=== PATIENT | female | born 1980 | race Hispanic/Latino ===

== ENCOUNTER 2017-02-20 10:03 | Emergency (ER) | payer MEDICAID ==
[2017-02-21 10:34] LABS: URINE APPEARANCE CLEAR (CLEAR); URINE BILIRUBIN NEGATIVE (NEGATIVE); URINE COLOR STRAW (YELLOW); URINE GLUCOSE (UA) NEGATIVE (NEGATIVE); URINE KETONE NEGATIVE (NEGATIVE)
[2017-02-21 10:35] LABS: PH,URINE 6.5 (4.7-8.0); URINE BLOOD NEGATIVE (NEGATIVE); URINE LEUKOCYTE ESTERASE NEGATIVE Leu/uL (NEGATIVE); URINE PROTEIN NEGATIVE mg/dL (<30 mg/dL); URINE UROBILINOGEN 0.2 E.U./dL (<1 E.U./dL)
[2017-02-21 13:03] LABS: HEMATOCRIT 36.3 % (36.0-48.0); MEAN CELL VOLUME 89.4 fL (80.0-105.0); MEAN CORPUSCULAR HEMOGLOBIN 30.5 pg (25.0-35.0); MEAN CORPUSCULAR HGB CONC 34.2 g/dl (31.0-37.0); MEAN PLATELET VOLUME 10.7 fl (7.0-11.0); RED CELL DISTRIBUTION WIDTH 13.2 % (11.5-14.5); WHITE BLOOD COUNT 7.6 10^3/ul (4.5-11.0)
--- NOTE | 2017-02-21 13:10 | RAD ---
HISTORY: COMPARISON: No prior. FINDINGS: LUNGS: No active pulmonary disease. PLEURA: No significant pleural effusion identified, no pneumothorax apparent. CARDIOVASCULAR: Normal. OSSEOUS STRUCTURES: No significant abnormalities. VISUALIZED UPPER ABDOMEN: Normal. OTHER FINDINGS: None. IMPRESSION: No active disease.
[2017-02-21 14:33] LABS: BLOOD UREA NITROGEN 6 mg/dL (7-21); CALCIUM 9.5 mg/dL (8.4-10.5); CARBON DIOXIDE 26 mmol/L (21-33); CHLORIDE 105 mmol/L (98-107); GFR AFRICAN-AMERICAN > 60; GLUCOSE,RANDOM 94 mg/dL (70-110); POTASSIUM 4.4 mmol/L (3.6-5.0); SODIUM 140 mmol/L (132-148)
--- NOTE | 2017-02-21 23:03 | CARD ---
APPROVED REPORT EKG Measurement Heart [id number] <Conclusion> Normal sinus rhythm Normal ECG
== END 2017-02-21 08:41 | disposition home or self-care (01) ==
LOC: ED 10:03 → EDUNIT# 10:03 → ED 02-21 08:41
DX: F29 Unspecified psychosis not due to a substance or known physiological condition (principal); M54.9 Dorsalgia, unspecified; G89.29 Other chronic pain

== ENCOUNTER 2017-03-10 08:43 | Emergency (ER) | payer MEDICAID ==
[2017-03-10 09:32] VITALS: TEMP 98.8; O2SAT 99; BMI 25.8
[2017-03-10] MEDS ORDERED: Oxycodone/Acetaminophen 5/325 mg Tab PO STA (09:48)
--- NOTE | 2017-03-10 09:48 | ED PDOC ---
Arrival/HPI - General Historian: Patient - General Chief Complaint: Trauma Time Seen by Provider: 03/10/17 09:41 - History of Present Illness Narrative History of Present Illness (Text): 03/10/17 09:42 36 y/o female, nkda, pmh including chronic pain which she is on the oxycodone 30mg, c/o rt. knee and ankle pain x 3-4 days after twisting it by accident. Aching pain, painful to walk and bear weight, no calf pain, no numbness or tingling, no headache or night sweat, no dizziness, no other medical or psychological complaints. (Isaak Lakhani) Past Medical History - Provider Review Nursing Documentation Reviewed: Yes - Tetanus Immunization Tetanus Immunization: Unknown - Cardiac Hx Cardiac Disorders: No - Pulmonary Hx Respiratory Disorders: No - Neurological Hx Neurological Disorder: No - HEENT Hx HEENT Disorder: No - Renal Hx Renal Disorder: No - Endocrine/Metabolic Hx Endocrine Disorders: No - Hematological/Oncological Hx Blood Disorders: No - Integumentary Hx Dermatological Disorder: No - Musculoskeletal/Rheumatological Hx Musculoskeletal Disorders: No Other/Comment: Fibromyalgia x 10 years - Gastrointestinal Hx Gastrointestinal Disorders: No - Genitourinary/Gynecological Hx Genitourinary Disorders: No - Psychiatric Hx Psychophysiologic Disorder: Yes Hx Anxiety: Yes Hx Depression: Yes Hx Substance Use: No - Surgical History Hx Section: Yes (07/13/2012) - Anesthesia Hx Anesthesia: Yes Hx Anesthesia Reactions: No Family/Social History - Physician Review Nursing Documentation Reviewed: Yes Family/Social History: Unknown Family HX Smoking Status: Light Smoker < 10 Cigarettes Daily Hx Alcohol Use: No Hx Substance Use: No Allergies/Home Meds Allergies/Adverse Reactions: Allergies No Known Allergies Allergy (Unverified 02/26/17 13:18) Home Medications: Home Meds Medication Instructions Recorded Confirmed Carisoprodol [Soma] 700 mg PO PRN PRN 03/10/17 03/10/17 oxyCODONE [oxyCODONE Immediate 60 mg PO PRN PRN 03/10/17 03/10/17 Release Tab] Review of Systems - Review of Systems Constitutional: absent: Fatigue, Fevers Eyes: absent: Vision Changes ENT: absent: Hearing Changes Respiratory: absent: SOB, Cough Cardiovascular: absent: Chest Pain Musculoskeletal: Arthralgias, Joint Swelling. absent: Back Pain, Neck Pain, Myalgias Neurological: absent: Headache, Dizziness Psychiatric: absent: Anxiety, Depression, Suicidal Ideation Physical Exam Vital Signs Reviewed: Yes Temperature: Afebrile Blood Pressure: Normal Pulse: Regular Respiratory Rate: Normal Appearance: Positive for: Well-Appearing, Non-Toxic Pain Distress: Severe Mental Status: Positive for: Alert and Oriented X 3 - Systems Exam Head: Present: Atraumatic, Normocephalic Pupils: Present: PERRL Extroacular Muscles: Present: EOMI Conjunctiva: Present: Normal Mouth: Present: Moist Mucous Membranes Neck: Present: Normal Range of Motion Respiratory/Chest: Present: Clear to Auscultation, Good Air Exchange. No: Respiratory Distress, Accessory Muscle Use Cardiovascular: Present: Regular Rate and Rhythm, Normal S1, S2. No: Murmurs Abdomen: Present: Normal Bowel Sounds. No: Tenderness, Distention, Peritoneal Signs Back: Present: Normal Inspection Upper Extremity: Present: Normal Inspection. No: Cyanosis, Edema Lower Extremity: Present: Normal Inspection, Other (Rt. lower extremity: +ttp and swelling with ecchmosis noted on the lateral mallelous, +ttp on the medial aspect of the knee with mild swelling, negative selina and brown signs, no erythematous, FROM without limitation, sensenation intact, motor 5/5, +DPPT pulses, capillary refill< 2 seconds, neurovascular intact. ). No: Edema Neurological: Present: GCS=15, Speech Normal, Motor Func Grossly Intact, Memory Normal Skin: Present: Warm, Dry, Normal Color. No: Rashes Psychiatric: Present: Alert, Oriented x 3, Normal Insight, Normal Concentration Medical Decision Making - RAD Interpretation [place]: Radiologist ED Course and Treatment: 03/10/17 09:52 -xrays of the rt. knee and ankle show no acute fracture or dislocation. -Toradol/percocet -posterior splint applied with neurovascular intact. -Crutches trained -Discharge home with posterior splint, crutches, mobic, ice compression, non- weight bearing, outpatient orthopedic and transfer and pumphouse operator chief follow with your own pmd within 2 days, return to the ER for any new or worsening signs or symptoms. 03/10/17 11:34 -Pain has decreased but patient request to have the pain completely gone, request morphine, morphine 2mg IM ordered. Pt. is not driving home. (Isaak Lakhani ) I was available for consultation during PA evaluation. The chart was reviewed by me, and I agree with disposition. The documented history was done by the physician heavy equipment sales manager. The documented physical exam was done by the physician heavy equipment sales manager. The documented procedures were done by the physician heavy equipment sales manager. ( Parrish Valdez) - RAD Interpretation Radiology Orders: 03/10/17 09:48 ANKLE RIGHT 3 VIEWS ROUTINE [RAD] Stat KNEE W PATELLA RIGHT 3 VIEW [RAD] Stat normal right ankle and knee radiographs. (Isaak Lakhani) - Medication Orders Current Medication Orders: Discontinued Medications Ketorolac Tromethamine (Toradol) 60 mg IM STAT STA Stop: 03/10/17 09:49 Last Admin: 03/10/17 10:32 Dose: 60 mg Morphine Sulfate (Morphine) 2 mg IM STAT STA Stop: 03/10/17 11:34 Last Admin: 03/10/17 11:47 Dose: 2 mg Oxycodone/Acetaminophen (Percocet 5/325 Mg Tab) 1 tab PO STAT STA Stop: 03/10/17 09:49 Last Admin: 03/10/17 10:33 Dose: 1 tab - PA / UPPER LEATHER SORTER / Resident Statement / has reviewed & agrees with the documentation as recorded. Disposition/Present on Arrival - Present on Arrival Any Indicators Present on Arrival: No History of DVT/PE: No History of Uncontrolled Diabetes: No Urinary Catheter: No History of Decub. Ulcer: No History Surgical Site Infection Following: None - Disposition Have Diagnosis and Disposition been Completed?: Yes Disposition Time: 09:53 Patient Plan: Discharge - Disposition Diagnosis: Ankle pain, Knee pain Disposition: HOME/ ROUTINE Condition: IMPROVED Additional Instructions: Discharge home with posterior splint, crutches, mobic, ice compression, non- weight bearing, outpatient orthopedic and transfer and pumphouse operator chief follow with your own pmd within 2 days, return to the ER for any new or worsening signs or symptoms. Prescriptions: Meloxicam [Mobic] 15 mg PO DAILY PRN #14 tab PRN Reason: Other Referrals: Neri Burk MD [Primary Care Provider] - Follow up with primary Eleno Santana DPM [Staff Provider] - Follow up with primary German Holcomb MD [Staff Provider] - Follow up with primary Forms: WORK NOTE
--- NOTE | 2017-03-10 11:26 | RAD ---
PROCEDURE: Right Knee Radiographs. HISTORY: rt. knee injury x 3-4 days COMPARISON: None. FINDINGS: BONES: Normal. No fracture. JOINTS: Normal. No osteoarthritis. JOINT EFFUSION: None. OTHER FINDINGS: None. IMPRESSION: Normal radiographs of the right knee.
--- NOTE | 2017-03-10 11:27 | RAD ---
PROCEDURE: Right Ankle Radiographs. HISTORY: rt. knee injury x 3-4 days COMPARISON: None FINDINGS: BONES: Normal. No fracture. JOINTS: Normal. No osteoarthritis. Ankle mortise maintained. Talar dome intact SOFT TISSUES: Normal. OTHER FINDINGS: None. IMPRESSION: Normal right ankle radiographs.
[2017-03-10] MEDS ORDERED: Morphine 2 mg/ml ISec IM STA (11:33)
[2017-03-10 15:20] VITALS: BP 126/85; PULSE 92; RESP 20
== END 2017-03-10 12:00 | disposition home or self-care (01) ==
LOC: EDUNIT# 08:43 → ED 08:43
DX: M25.561 Pain in right knee (principal); M25.571 Pain in right ankle and joints of right foot
CPT/HCPCS: 29515; 73562; 73610; 96372; 99285; J1885; J2270

== ENCOUNTER 2017-03-11 13:25 | Inpatient (IN) | payer MEDICAID ==
[2017-03-11 13:27] VITALS: BMI 25.8
--- NOTE | 2017-03-11 13:59 | ED PDOC ---
Arrival/HPI - General Historian: Patient - General Chief Complaint: Psychiatric Evaluation Time Seen by Provider: 03/11/17 13:42 - History of Present Illness Narrative History of Present Illness (Text): 03/11/17 13:56 36yo female present with complaint of depression and anxiety. she reports suicidal ideation. States she was recently discharged from [facility] and felt she was not ready for discharge. She is not on any antidepressant or anxiolytics, per patient. she denies HI, hallucination, . Reports right leg pain and back pain. States she sees a pain management and have not taken her analgesics for three days. Thinks she might be going through a withdrawal. ([facility]) Past Medical History - Provider Review Nursing Documentation Reviewed: Yes - Tetanus Immunization Tetanus Immunization: Unknown - Cardiac Hx Cardiac Disorders: No - Pulmonary Hx Respiratory Disorders: No - Neurological Hx Neurological Disorder: No - HEENT Hx HEENT Disorder: No - Renal Hx Renal Disorder: No - Endocrine/Metabolic Hx Endocrine Disorders: No - Hematological/Oncological Hx Blood Disorders: No - Integumentary Hx Dermatological Disorder: No - Musculoskeletal/Rheumatological Hx Musculoskeletal Disorders: No Other/Comment: Fibromyalgia x 10 years - Gastrointestinal Hx Gastrointestinal Disorders: No - Genitourinary/Gynecological Hx Genitourinary Disorders: No - Psychiatric Hx Psychophysiologic Disorder: Yes Hx Anxiety: Yes Hx Depression: Yes Hx Substance Use: No - Surgical History Hx Section: Yes (07/13/2012) - Anesthesia Hx Anesthesia: Yes Hx Anesthesia Reactions: No Family/Social History - Physician Review Nursing Documentation Reviewed: Yes Family/Social History: Unknown Family HX Smoking Status: Light Smoker < 10 Cigarettes Daily Hx Alcohol Use: No Hx Substance Use: No Allergies/Home Meds Allergies/Adverse Reactions: Allergies No Known Allergies Allergy (Verified 03/11/17 13:38) Home Medications: Home Meds Medication Instructions Recorded Confirmed Carisoprodol [Soma] 700 mg PO PRN PRN 03/10/17 03/11/17 oxyCODONE [oxyCODONE Immediate 60 mg PO PRN PRN 03/10/17 03/11/17 Release Tab] Gabapentin [Neurontin] 300 mg PO TID 03/11/17 03/11/17 Sertraline [Zoloft] 75 mg PO DAILY 03/11/17 03/11/17 Review of Systems - Physician Review All systems were reviewed & negative as marked: Yes - Review of Systems Constitutional: Normal Eyes: Normal ENT: Normal Respiratory: Normal Cardiovascular: Normal Gastrointestinal: Normal Genitourinary Female: Normal Musculoskeletal: Arthralgias (Right left pain), Back Pain Skin: Normal Neurological: Normal Endocrine: Normal Hemo/Lymphatic: Normal Psychiatric: Anxiety, Depression, Suicidal Ideation Physical Exam Vital Signs Reviewed: Yes Temperature: Afebrile Blood Pressure: Normal Pulse: Regular Respiratory Rate: Normal Appearance: Positive for: Well-Appearing, Non-Toxic, Comfortable, Other (Teary) Pain Distress: None Mental Status: Positive for: Alert and Oriented X 3 - Systems Exam Head: Present: Atraumatic, Normocephalic Pupils: Present: PERRL Extroacular Muscles: Present: EOMI Conjunctiva: Present: Normal Mouth: Present: Moist Mucous Membranes Neck: Present: Normal Range of Motion Respiratory/Chest: Present: Clear to Auscultation, Good Air Exchange. No: Respiratory Distress, Accessory Muscle Use Cardiovascular: Present: Regular Rate and Rhythm, Normal S1, S2. No: Murmurs Abdomen: Present: Normal Bowel Sounds. No: Tenderness, Distention, Peritoneal Signs Back: Present: Normal Inspection Upper Extremity: Present: Normal Inspection. No: Cyanosis, Edema Lower Extremity: Present: Normal Inspection. No: Edema Neurological: Present: GCS=15, CN II-XII Intact, Speech Normal Skin: Present: Warm, Dry, Normal Color. No: Rashes Psychiatric: Present: Alert, Oriented x 3, Normal Insight, Normal Concentration , Depressed Mood Vital Signs Temp Pulse Resp BP Pulse Ox 03/11/17 15:00 95 H 18 130/95 H 99 03/11/17 13:34 98.3 F 101 H 18 105/54 L 100 Medical Decision Making ED Course and Treatment: I was available for consultation during PA evaluation. The chart was reviewed by me, and I agree with disposition. The documented history was done by the physician ammonia print operator. The documented physical exam was done by the physician ammonia print operator. The documented procedures were done by the physician ammonia print operator. (Parrish Valdez) 03/11/17 15:20 Patient presented for stated history. She was medically cleared for psych evaluation. she was seen by JEM Murguia and admitted to Dr. Galeana. ([facility]) - Lab Interpretations Lab Results: 03/11/17 14:33 03/11/17 14:33 Lab Results 03/11/17 14:33: Alcohol, Quantitative < 10 03/11/17 14:33: Salicylates < 1 L, Acetaminophen < 10.0 L 03/11/17 14:33: Sodium 140, Potassium 3.9, Chloride 106, Carbon Dioxide 28, Anion Gap 10, BUN 5 L, Creatinine 0.6, Est GFR ( Amer) > 60, Est GFR (Non -Af Amer) > 60, Random Glucose 93, Calcium 9.6, Total Bilirubin 0.4, AST 32, ALT 32, Alkaline Phosphatase 89, Total Protein 7.7, Albumin 4.2, Globulin 3.5, Albumin/Globulin Ratio 1.2 03/11/17 14:33: WBC 8.1, RBC 4.32, Hgb 13.3, Hct 38.0, MCV 88.0, MCH 30.8, MCHC 35.0, RDW 12.6, Plt Count 384, MPV 10.3, Gran % 79.5 H, Lymph % (Auto) 13.2 L, [place] % (Auto) 6.6 H, Eos % (Auto) 0.6 L, Baso % (Auto) 0.1, Gran # 6.42, Lymph # 1.1 L, [place] # 0.5, Eos # 0.1, Baso # 0.01 03/11/17 14:15: Urine Opiates Screen Negative, Urine Methadone Screen Negative, Ur Barbiturates Screen Negative, Ur Phencyclidine Scrn Negative, Ur Amphetamines Screen Negative, U Benzodiazepines Scrn Negative, U Oth Cocaine Metabols Negative, U Cannabinoids Screen Negative 03/11/17 14:15: Urine Color Yellow, Urine Appearance Clear, Urine pH 7.0, Ur Specific [place] <= 1.005, Urine Protein Negative, Urine Glucose (UA) Negative, Urine Ketones Negative, Urine Blood Negative, Urine Nitrate Negative, Urine Bilirubin Negative, Urine Urobilinogen 0.2, Ur Leukocyte Esterase Negative, Urine HCG, Qual Negative Disposition/Present on Arrival - Present on Arrival Any Indicators Present on Arrival: No History of DVT/PE: No History of Uncontrolled Diabetes: No Urinary Catheter: No History of Decub. Ulcer: No History Surgical Site Infection Following: None - Disposition Have Diagnosis and Disposition been Completed?: Yes Disposition Time: 15:20 - Disposition Diagnosis: Moderate major depression, single episode, Suicidal ideation, Chronic back pain Disposition: HOSPITALIZED Patient Problems: Current Active Problems Problem Status Onset Moderate major depression, single episode Acute Suicidal ideation Acute Condition: FAIR
[2017-03-11 14:39] LABS: URINE BILIRUBIN NEGATIVE (NEGATIVE); URINE BLOOD NEGATIVE (NEGATIVE); URINE GLUCOSE (UA) NEGATIVE (NEGATIVE); URINE KETONE NEGATIVE (NEGATIVE); URINE LEUKOCYTE ESTERASE NEGATIVE Leu/uL (NEGATIVE); URINE PROTEIN NEGATIVE mg/dL (<30 mg/dL); URINE UROBILINOGEN 0.2 E.U./dL (<1 E.U./dL)
[2017-03-11 14:40] LABS: URINE APPEARANCE CLEAR (CLEAR); URINE COLOR YELLOW (YELLOW)
[2017-03-11 14:41] LABS: ADD MANUAL DIFF? NO
[2017-03-11 14:50] LABS: BASO # 0.01 K/mm3 (0.0-2.0); BASO % 0.1 % (0.0-3.0); EOS # 0.1 (0.0-0.7); EOS % 0.6 % (1.5-5.0); GRAN # 6.42 (1.4-6.5); GRAN % 79.5 % (50.0-68.0); LYMPH # 1.1 (1.2-3.4); LYMPH % 13.2 % (22.0-35.0); MEAN CORPUSCULAR HEMOGLOBIN 30.8 pg (25.0-35.0); MEAN PLATELET VOLUME 10.3 fl (7.0-11.0); MONO # 0.5 (0.1-0.6); MONO % 6.6 % (1.0-6.0); PLATELET COUNT 384 10^3/uL (120.0-450.0); RED CELL DISTRIBUTION WIDTH 12.6 % (11.5-14.5); WHITE BLOOD COUNT 8.1 10^3/ul (4.5-11.0)
[2017-03-11 14:59] LABS: ALB/GLOB RATIO 1.2 (1.1-1.8); ALKALINE PHOSPHATASE 89 U/L (38-133); ALT/SGPT 32 U/L (7-56); AST/SGOT 32 U/L (15-39); BILIRUBIN,TOTAL 0.4 mg/dL (0.2-1.3); BLOOD UREA NITROGEN 5 mg/dL (7-21); CALCIUM 9.6 mg/dL (8.4-10.5); CARBON DIOXIDE 28 mmol/L (21-33); CHLORIDE 106 mmol/L (98-107); GFR AFRICAN-AMERICAN > 60; GLUCOSE,RANDOM 93 mg/dL (70-110); POTASSIUM 3.9 mmol/L (3.6-5.0); SODIUM 140 mmol/L (132-148); TOTAL PROTEIN 7.7 g/dL (5.8-8.3)
[2017-03-11 15:23] VITALS: O2SAT 99
[2017-03-11] MEDS ORDERED: Magnesium Hydroxide Susp 30 ml UD PO PRN (17:33)
[2017-03-11] MEDS ORDERED: Alum-Mag Hydrox-Simethicone Susp (30 mL) PO PRN (17:33)
[2017-03-11] MEDS: oxyCODONE 30 mg Immediate Release Tab PO PRN (18:03)
[2017-03-12] MEDS: oxyCODONE 30 mg Immediate Release Tab PO PRN ×4 (06:45→20:06)
--- NOTE | 2017-03-12 10:26 | RAD ---
HISTORY: Routine admission COMPARISON: No prior. TECHNIQUE: Chest PA and lateral FINDINGS: LUNGS: No active pulmonary disease. PLEURA: No significant pleural effusion identified. No pneumothorax apparent. CARDIOVASCULAR: Normal. OSSEOUS STRUCTURES: No significant abnormalities. VISUALIZED UPPER ABDOMEN: Normal. OTHER FINDINGS: None. IMPRESSION: No active disease.
[2017-03-12 11:40] LABS: CHOLESTEROL 208 mg/dL (130-200); GLUCOSE,FASTING 92 mg/dL (65-110)
[2017-03-12] MEDS ORDERED: oxyCODONE 30 mg Immediate Release Tab PO SCH (13:00)
[2017-03-12 13:24] LABS: FREE T4 0.84 ng/dL (0.78-2.19)
--- NOTE | 2017-03-12 14:16 | CARD ---
APPROVED REPORT EKG Measurement Heart [id number] [id number] <Conclusion> Normal sinus rhythm Mildly prolonged QTc
--- NOTE | 2017-03-12 14:51 | RAD ---
PROCEDURE: Right Ankle Radiographs. HISTORY: pain/swelling COMPARISON: None FINDINGS: BONES: Normal. No fracture. JOINTS: Normal. No osteoarthritis. Ankle mortise maintained. Talar dome intact SOFT TISSUES: Normal. OTHER FINDINGS: None. IMPRESSION: Normal right ankle radiographs.
--- NOTE | 2017-03-12 15:45 | PCM.PSYCH ---
Initial Psychiatric Evaluation - Initial Psychiatric Evaluation Type of Admission: Voluntary Legal Status: Capacity (Patient has capacity to sign consent for tx.) Chief Complaint (in patient's own words): "I do not know, anxiety is very strong, I feel I cannot breath, I cannot function, now I have panic attacks twice a day, I started to have a flashbacks about my mother suicide" Patient's Reaction to Hospitalization: pt was admitted for evaluation of depressive, anxiety symptoms, passive wish to be . History of Present Illness and Precipitating Events: shortly pt is 36yo female, self reported h/o depression and anxiety, one previous psychiatric inpatient unit less than a month ago at [facility], pt denied suicidal attempts, brought herself to the hospital looking for help for her depressive and anxiety symptoms, med management. Pt needs further evaluation and stabilization, meds management. pt was seen at the tx team, presented to have fair personal hygiene, tearful during the interview, seems to be careless about her appearance, baggy clothes, good ADLs, pt ambulates with the walker. previous record from [facility] reviewed. as per notes: pt was manipulative and could get "any drug i need". pt was d/c on the following meds: zoloft 75mg daily remeron for insomnia klonopin and this was discontinued after pt was c/o feeling weak and "fell" pt said that she was on pain meds, which was confirmed with pt's pharmacy [facility] pharmacy [phone], as per pt's pharmacy pt was fired from outpatient clinic and from this pharmacy. oxycodone 30mg two tabs q4hrs by [facility] filled March 06 pills given gabapentin 300mg po tid soma 350mg po bid Meloxican 15mg po daily zoloft 75mg po daily Remeron 15mg hs. pt has tendency of taking more meds as prescribed. [email or web address] checked oxy 30mg q4hrs by at [place], filled March 06 pills given Soma 350 20 tabs givenfilled february 26, by oxycodone 30mg po q4hr 90 pills given. pt reported for the past year she started to experience "panic attacks", where she could not breath, feeling of chocking, fear of dying, pt also has feeling that something horrible could happen to her 4yo daughter(currently on vacation with grandparents), pt also said that frequency of attacks are twice a day. it is affecting pt's functionality. pt said that she started to experience a flashbacks about suicidal attempt of her mother, pt was 21yo, pt's mother suffered from alcoholism and hang herself. pt also said anxiety symptoms making her feel very depressed, hopeless and helpless as well as guilty. pt said that she started to have suicidal thoughts but denied any plan or intent of killing herself, pt wants to get better. pt has h/o hypomanic episodes in the past, pressured speech, racing thoughts, irritability, insomnia, multitasking. pasty psych h/o: was admitted to the [facility], was d/c on zoloft, neurontin, remeron. family h/o: alcoholism, mother committed suicide at age of 45 by hanging herself. medical h/o: pt has "gout, fibromyalgia, pt claimed that she felled in [facility], reported twisting her ankle, pt reported losing 65 LB for the past six month due to her depression and anxiety. pt denied using drugs, denied drinking alcohol, pt smokes 1/2 pack a day. counseling provided. Smoking Cessation Counseling: The patient was counseled as to the multiple risks to his/her health from continued use of tobacco products. 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 He/she states he/she understands these risks, and also understands the options and resources available to him/her to help him/her stop smoking. Nicotine replacement therapy, local hotlines, and local resources were discussed as viable options for helping him/her stop his/her tobacco use. The total time spent counseling the patient regarding tobacco cessation was 3 minutes pt was educated about all meds, risk, benefits and alternatives. 03/11/17 14:33 03/11/17 14:33 Lab Results 03/12/17 12:53: ESR 7 03/12/17 12:50: C-React Prot High Sens Pending, Free T4 0.84 03/12/17 11:00: Fasting Glucose 92, Triglycerides 78, Cholesterol 208 H, LDL Cholesterol Direct 104, HDL Cholesterol 74 H 03/12/17 11:00: TSH 3rd Generation 0.32 L 03/11/17 14:33: Alcohol, Quantitative < 10 03/11/17 14:33: Salicylates < 1 L, Acetaminophen < 10.0 L 03/11/17 14:33: Sodium 140, Potassium 3.9, Chloride 106, Carbon Dioxide 28, Anion Gap 10, BUN 5 L, Creatinine 0.6, Est GFR ( Amer) > 60, Est GFR (Non -Af Amer) > 60, Random Glucose 93, Calcium 9.6, Total Bilirubin 0.4, AST 32, ALT 32, Alkaline Phosphatase 89, Total Protein 7.7, Albumin 4.2, Globulin 3.5, Albumin/Globulin Ratio 1.2 03/11/17 14:33: WBC 8.1, RBC 4.32, Hgb 13.3, Hct 38.0, MCV 88.0, MCH 30.8, MCHC 35.0, RDW 12.6, Plt Count 384, MPV 10.3, Gran % 79.5 H, Lymph % (Auto) 13.2 L, Adair % (Auto) 6.6 H, Eos % (Auto) 0.6 L, Baso % (Auto) 0.1, Gran # 6.42, Lymph # 1.1 L, Adair # 0.5, Eos # 0.1, Baso # 0.01 03/11/17 14:15: Urine Opiates Screen Negative, Urine Methadone Screen Negative, Ur Barbiturates Screen Negative, Ur Phencyclidine Scrn Negative, Ur Amphetamines Screen Negative, U Benzodiazepines Scrn Negative, U Oth Cocaine Metabols Negative, U Cannabinoids Screen Negative 03/11/17 14:15: Urine Color Yellow, Urine Appearance Clear, Urine pH 7.0, Ur Specific Harris <= 1.005, Urine Protein Negative, Urine Glucose (UA) Negative, Urine Ketones Negative, Urine Blood Negative, Urine Nitrate Negative, Urine Bilirubin Negative, Urine Urobilinogen 0.2, Ur Leukocyte Esterase Negative, Urine HCG, Qual Negative Vital Signs Temp Pulse Resp BP Pulse Ox 03/12/17 07:21 97.9 F 78 20 125/91 H 03/11/17 15:00 95 H 18 130/95 H 99 03/11/17 13:34 98.3 F 101 H 18 105/54 L 100 Current Medications: Active Medications Generic Name Dose Route Start Last Admin Trade Name Freq PRN Reason Stop Dose Admin Acetaminophen 650 mg 03/11/17 17:33 Tylenol 325mg Tab PO Q4 PRN Pain, moderate (4-7) Al Hydrox/Mg Hydrox/Simethicone 30 ml 03/11/17 17:33 Maalox Plus 30 Ml PO DAILY PRN Upset Stomach Fluoxetine HCl 20 mg 03/12/17 11:00 03/12/17 12:32 Prozac PO 20 mg DAILY ABIMAEL Administration Gabapentin 400 mg 03/12/17 10:45 03/12/17 12:32 Neurontin PO 400 mg TID ABIMAEL Administration Protocol Hydroxyzine Pamoate 50 mg 03/12/17 10:46 Vistaril PO Q8 PRN Anxiety Protocol Magnesium Hydroxide 30 ml 03/11/17 17:33 Milk Of Magnesia PO DAILY PRN Constipation Nicotine 1 patch 03/12/17 08:00 03/12/17 08:53 Nicoderm Cq TD 1 patch DAILY ABIMAEL Administration Oxycodone HCl 30 mg 03/12/17 14:26 Oxycodone Immediate Release Tab PO QID PRN severe pain Zaleplon 10 mg 03/12/17 10:45 Sonata PO HS PRN Insomnia Ziprasidone 20 mg 03/11/17 20:03 Geodon Inj IM Q8 PRN Agitation Protocol Past Psychiatric History - Past Psychiatric History Previous Treatment History: Inpatient Prior Professional Help: see HPI Prior Psychiatric Treatment: see hPI At what hospital: see HPI Duration: see HPI Nature of Treatment: see HPI Explanation of prior treatment: see HPI History of Abuse: see HPI denied History of ETOH/Drug Use: see HPI History of Family Illness: see HPI Pertinent Medical Hx (Current Medical&Sleep Prob, Allergies): Allergies Allergy/AdvReac Type Severity Reaction Status Date / Time No Known Allergies Allergy Verified 03/12/17 07:16 Carisoprodol [Soma] 700 mg PO PRN PRN 03/10/17 Meloxicam [Mobic] 15 mg PO DAILY PRN #14 tab 03/10/17 oxyCODONE [oxyCODONE Immediate Release Tab] 60 mg PO PRN PRN 03/10/17 Gabapentin [Neurontin] 300 mg PO TID 03/11/17 Sertraline [Zoloft] 75 mg PO DAILY 03/11/17 Review of Systems - Review of Systems Systems not reviewed;Unavailable: Acuity of Condition - EENT Eyes: As Per HPI Ears: As Per HPI Nose/Mouth/Throat: As Per HPI - Breasts Breasts: As Per HPI - Cardiovascular Cardiovascular: As Per HPI - Gastrointestinal Gastrointestinal: As Per HPI - Genitourinary Genitourinary: As Per HPI - Reproductive: Female Reproductive:Female: As Per HPI - Menstruation Menstruation: As Per HPI - Musculoskeletal Musculoskeletal: As Par HPI - Integumentary Integumentary: As Per HPI - Neurological Neurological: As Per HPI - Psychiatric Psychiatric: As Per HPI - Endocrine Endocrine: As Per HPI - Hematologic/Lymphatic Hematologic: As Per HPI Mental Status Examination - Personal Presentation Personal Presentation: Looks stated age - Affect Affect: Constricted (tearful) - Motor Activity Motor Activity: Calm - Reliability in Providing Information Reliability in Providing Information: Fair - Speech Speech: Organized - Mood Mood: Depressed, Anxious - Formal Thought Process Formal Thought Process: No Impairment - Obsessions/Compulsions Obsessions: No Compulsions: No - Cognitive Functions Orientation: Person, Place, Situation, Time Sensorium: Alert Attention/Concentration: Easily distracted Abstract Thinking: Orestes Estimate of Intelligence: Average Judgement: Intact, as evidence by: Insight regarding need for hospitalization - Risk Risk: Withdrawal, Diminished functioning - Strength & Assets Inventory Strength & Assets Inventory: Intelligence, Family support, Education, Employment history, Cooperative - Limitations Limitations: Other (pt most likely addicted to the pain meds) DSM 5 DX - DSM 5 DSM 5 Diagnosis: r/o bipolar II r/o GRACE, panic disorder with no agoraphobia, r/o PTSD r/o mood disorder due to a [facility] r/o chronic pain syndrome r/o addiction to the pain meds - Recommended/Plan of Treatment Treatment Recommendations and Plan of Treatment: Milieu/structure/supportive therapy will resume oxy for now 30mg qid with the plan to wean it off will start prozac 20mg po daily for depression and anxiety sonata 10mg hs for insomnia will call for medial consult will call ortho consult will give PRN meds SW evaluation will monitor closely Projected ELOS: 7days Prognosis: guarded Discharge Plan and Discharge Criteria: Pt will be not depressed or manic, will be more hopeful, will be not psychotic or anxious, will be not having thoughts of harming self or others, will be tolerating medications well, will not have major side effects, will be able to function, will not pose threat to self or others. - Smoking Cessation Smoking Cessation Initiated: Yes
--- NOTE | 2017-03-12 16:19 | CP.PCM.CON ---
<Iraida Jones - Last Filed: 03/12/17 16:10> History of Present Illness - History of Present Illness History of Present Illness: 36 F with PMHx of gout, chronic pain, fibromyalgia, anxiety and depression presented to [facility] with complaints of anxiety/depression and rt ankle pain. [facility] and was administered pain medication at which point became hypotensive and fell more so on her right side> pt described her leg giving out, catching her self and hearing a pop in her rt ankle. Pt was seen and examined at bedside. Pt states that she recently has become overwhelmed by her social circumstances at home with moving to her in-laws. Pt has been thinking more about the of her mother and has subsequently become anxious ridden and depressed. She states that she has good support at home. Pt denied fever, chills, chest pains, abdominal pains, sob, n/v/d/c or urinary symptoms. PMHx: as above PSHx: , microfx of left ankle FamHx: alcoholism, mother committed suicide SHx: +tobacco 1/2ppd, denied etoh, illicit drugs Meds:oxycodone 30mg two tabs q4hrs, gabapentin 300mg po tid, soma 350mg po bid, Meloxican 15mg po daily, zoloft 75mg po daily, Remeron 15mg hs Allergies: NKDA Review of Systems - Review of Systems Review of Systems: as per HPI otherwise negative Past Patient History - Tetanus Immunizations Tetanus Immunization: Unknown - Past Social History Smoking Status: Light Smoker < 10 Cigarettes Daily - CARDIAC Hx Cardiac Disorders: No - PULMONARY Hx Respiratory Disorders: No - NEUROLOGICAL Hx Neurological Disorder: No - HEENT Hx HEENT Problems: No - RENAL Hx Chronic Kidney Disease: No - ENDOCRINE/METABOLIC Hx Endocrine Disorders: No - HEMATOLOGICAL/ONCOLOGICAL Hx Blood Disorders: No - INTEGUMENTARY Hx Dermatological Problems: No - MUSCULOSKELETAL/RHEUMATOLOGICAL Hx Musculoskeletal Disorders: No Other/Comment: Fibromyalgia x 10 years - GASTROINTESTINAL Hx Gastrointestinal Disorders: No - GENITOURINARY/GYNECOLOGICAL Hx Genitourinary Disorders: No - PSYCHIATRIC Hx Psychophysiologic Disorder: Yes Hx Anxiety: Yes Hx Depression: Yes Hx Substance Use: No - SURGICAL HISTORY Hx Section: Yes (07/13/2012) - ANESTHESIA Hx Anesthesia: Yes Hx Anesthesia Reactions: No Meds Allergies/Adverse Reactions: Allergies Allergy/AdvReac Type Severity Reaction Status Date / Time No Known Allergies Allergy Verified 03/12/17 07:16 - Medications Medications: Current Medications Acetaminophen (Tylenol 325mg Tab) 650 mg PO Q4 PRN PRN Reason: Pain, moderate (4-7) Al Hydrox/Mg Hydrox/Simethicone (Maalox Plus 30 Ml) 30 ml PO DAILY PRN PRN Reason: Upset Stomach Fluoxetine HCl (Prozac) 20 mg PO DAILY [facility] Last Admin: 03/12/17 12:32 Dose: 20 mg Gabapentin (Neurontin) 400 mg PO TID ABIMAEL PRN Reason: Protocol Last Admin: 03/12/17 12:32 Dose: 400 mg Hydroxyzine Pamoate (Vistaril) 50 mg PO Q8 PRN; Protocol PRN Reason: Anxiety Last Admin: 03/12/17 15:58 Dose: 50 mg Magnesium Hydroxide (Milk Of Magnesia) 30 ml PO DAILY PRN PRN Reason: Constipation Nicotine (Nicoderm Cq) 1 patch TD DAILY [facility] Last Admin: 03/12/17 08:53 Dose: 1 patch Oxycodone HCl (Oxycodone Immediate Release Tab) 30 mg PO QID PRN PRN Reason: severe pain Last Admin: 03/12/17 15:55 Dose: 30 mg Zaleplon (Sonata) 10 mg PO HS PRN PRN Reason: Insomnia Ziprasidone (Geodon Inj) 20 mg IM Q8 PRN; Protocol PRN Reason: Agitation Physical Exam - Constitutional Appears: Well, No Acute Distress - Head Exam Head Exam: ATRAUMATIC, NORMAL INSPECTION, NORMOCEPHALIC - Eye Exam Eye Exam: EOMI, Normal appearance, PERRL Pupil Exam: NORMAL ACCOMODATION, PERRL - ENT Exam ENT Exam: Mucous Membranes Moist, Normal Exam - Neck Exam Neck exam: Positive for: Normal Inspection - Respiratory Exam Respiratory Exam: Clear to Auscultation Bilateral, NORMAL BREATHING PATTERN - Cardiovascular Exam Cardiovascular Exam: REGULAR RHYTHM - GI/Abdominal Exam GI & Abdominal Exam: Normal Bowel Sounds, Soft. absent: Tenderness - Exam External exam: Swelling - Extremities Exam Extremities exam: Positive for: pedal edema Additional comments: rt ankle edema an ttp - Neurological Exam Neurological exam: Alert, CN II-XII Intact, Normal Gait, Oriented x3, Reflexes Normal - Psychiatric Exam Psychiatric exam: Normal Affect, Normal Mood - Skin Skin Exam: Dry, Intact, Normal Color, Warm Results - Vital Signs Recent Vital Signs: Last Vital Signs Temp 97.9 F 03/12/17 07:21 Pulse 78 03/12/17 07:21 Resp 20 03/12/17 07:21 BP 125/91 H 03/12/17 07:21 Pulse Ox 99 03/11/17 15:00 - Labs Result Diagrams: 03/11/17 14:33 03/11/17 14:33 Labs: Laboratory Results - last 24 hr 03/12/17 03/12/17 03/12/17 11:00 11:00 12:50 ESR Fasting Glucose 92 Triglycerides 78 Cholesterol 208 H LDL Cholesterol Direct 104 HDL Cholesterol 74 H Free T4 0.84 TSH 3rd Generation 0.32 L 03/12/17 12:53 ESR 7 Fasting Glucose Triglycerides Cholesterol LDL Cholesterol Direct HDL Cholesterol Free T4 TSH 3rd Generation Assessment & Plan - Assessment and Plan (Free Text) Assessment: 36 F with PMHx of gout, fibromyalgia, and chronic pain syndrome presenting with anxiety and depression and rt ankle swelling and pain. 1. Rt. Ankle pain - rt ankle xray - esr and crp - ortho consulted - pain control with oxycontin 2. Chronic pain syndrome - consulted Dr. Clemens for pain management - fu recs - oxycontin 3. Gout - stable, no signs of active flare - colchicine for acute flare ups 4. Anxiety and depression - tsh - fu ft4 - Psych following pt, will start prozac 5. Insomnia - sonata as per psych 6. tobacco abuse - cessation counselling and education - nicotine patch 7. GI and DVT ppx reviewed seen reviewed and discussed with attending <Kiki Ron - Last Filed: 03/14/17 13:22> Meds - Medications Medications: Current Medications Acetaminophen (Tylenol 325mg Tab) 650 mg PO Q4 PRN PRN Reason: Pain, moderate (4-7) Al Hydrox/Mg Hydrox/Simethicone (Maalox Plus 30 Ml) 30 ml PO DAILY PRN PRN Reason: Upset Stomach Bacitracin (Bacitracin) 1 ea TOP BID ABIMAEL Last Admin: 03/14/17 08:13 Dose: 1 ea Famotidine (Pepcid) 40 mg PO HS ABIMAEL Last Admin: 03/13/17 21:37 Dose: 40 mg Fluoxetine HCl (Prozac) 40 mg PO DAILY ABIMAEL Gabapentin (Neurontin) 400 mg PO TID ABIMAEL PRN Reason: Protocol Last Admin: 03/14/17 12:56 Dose: 400 mg Hydroxyzine Pamoate (Vistaril) 50 mg PO Q8 PRN; Protocol PRN Reason: Anxiety Last Admin: 03/14/17 09:34 Dose: 50 mg Magnesium Hydroxide (Milk Of Magnesia) 30 ml PO DAILY PRN PRN Reason: Constipation Nicotine (Nicoderm Cq) 1 patch TD DAILY ABIMAEL Last Admin: 03/14/17 08:14 Dose: 1 patch Oxycodone HCl (Oxycodone Immediate Release Tab) 30 mg PO QID PRN PRN Reason: severe pain Last Admin: 03/14/17 12:56 Dose: 30 mg Trazodone HCl (Desyrel) 100 mg PO HS ABIMAEL Ziprasidone (Geodon Inj) 20 mg IM Q8 PRN; Protocol PRN Reason: Agitation Results - Vital Signs Recent Vital Signs: Last Vital Signs Temp 98.2 F 03/14/17 07:35 Pulse 77 03/14/17 07:35 Resp 20 03/14/17 07:35 BP 120/80 03/14/17 07:35 Pulse Ox 99 03/11/17 15:00 - Labs Result Diagrams: 03/11/17 14:33 03/13/17 07:35 Attending/Attestation - Attestation I have personally seen and examined this patient.: Yes I have fully participated in the care of the patient.: Yes I have reviewed all pertinent clinical information: Yes Notes (Text): I have seen and examined patient at bedside. This is 36 year old female with history of gout, chronic pain, fibromyalgia, anxiety and depression who was admitted for worsening of depression. Manage as per psych. TFT's within normal limits.Also complains of fall about a week ago and since then, she has been having ankle pain and swelling. Ankle xray is negative. Ortho consult appreciated. Patient has right ankle sprain. Will consult Dr Clemens for pain management. Tobacco cessation counselling provided. Will sign off at this time. Please reconsult if needed. Dr Kiki Ron
--- NOTE | 2017-03-12 18:38 | CON ---
DATE: 03/12/2017 The patient is located in room 516, bed 2. The patient is a 36-year-old female with a history of right ankle and right knee pain, more so in the ankle than the knee. She was at [facility] about a week ago and she was just given an Saulo bandage but she came to [facility] on 03/11/17 with a swollen right ankle along the anterior lateral portion of the ankle at the talofibular ligament and tenderness, but no instability. The knee was not swollen and was stable she has worse pain on the right ankle then the right knee. The right knee is stable. No effusion, but the ankle has a classic grade I ankle sprain with pain with inversion so I am going to offer her an Aircast and ambulation with a walker and to wear a good sneaker with the Aircast and I told her it would take about 6 weeks to get better, but she can put weight on that leg to help the muscle strength come back and the air cast should help her when she walks and she does not need it when she is in bed or resting. FINAL DIAGNOSIS: Right ankle sprain, stable, grade I. Davis Holman DO cc: [id number] TT: 03/12/2017 18:38:04 Confirmation # [id number] Dictation # [id number] jasvir ZIMMERMAN
--- NOTE | 2017-03-12 19:38 | CON ---
DATE: 03/12/2017 ROOM 516, psychiatry. HISTORY OF PRESENT ILLNESS: This is a 36-year-old female with known history of generalized anxiety a nd depression, admitted here once again with increasing bouts of depressive mood disorder with superv ening suicidal ideations and is being referred now for evaluation of abnormal thyroid function studie s. She was seen in the previous admission and had similar abnormal thyroid studies ____ noted. PAST MEDICAL HISTORY: As mentioned above, history of chronic pain syndrome with diffuse pains, espec ially in the lower extremities and the lower back and cervical neck area and has been chemically depe ndent on narcotic analgesics. History of generalized anxiety and depression as mentioned and taking psychotropic medications. There is also significant history of fibromyalgia for almost 10 years at t his time. FAMILY HISTORY: No known thyroid endocrinopathy. SOCIAL HISTORY: The patient has supportive family. Also admits to nicotine dependence. No other il licit drug use. REVIEW OF SYSTEMS: As mentioned above, admits to generalized body weakness with easy fatigability an d tiredness and suboptimal energy level. No chest pains or palpitations or PNDs. Her oral intake is variable, but otherwise satisfactory. No alterations of bowel or urinary patterns. PHYSICAL EXAMINATION: GENERAL: An average built female in no apparent distress. VITAL SIGNS: Blood pressure of 140/80, pulse of 70 beats per minute and regular, temperature 98, res pirations 20. Height is 5 feet 9 inches and weight is 175 pounds. HEENT: Head normocephalic. Eyes anicteric with pink conjunctivae. Fundoscopy not possible at this time. Ears, nose and throat otherwise normal. NECK: Supple. Thyroid gland is normal size. No carotid bruits or any cervical adenopathy. CARDIOPULMONARY: Some adynamic precordium. S1, S2 is rapid and regular. LUNGS: Clear to auscultation. ABDOMEN: Flat, soft with positive bowel sounds. EXTREMITIES: No peripheral edema. Pulses are +2 bilaterally. LABORATORY DATA: Her chemistries showed a BUN of 5, sodium 140, potassium 3.9, chloride 106, CO2 28, glucose 93 and creatinine 0.6. Her TSH is 0.32 with a free T4 of 0.84. ASSESSMENT: This is a 36-year-old female with major depressive disorder and suicidal ideations curre ntly evaluated to be clinically euthyroid and biochemically has evidence of the so-called acute sick euthyroid syndrome. PLAN OF MANAGEMENT: We will obtain a comprehensive thyroid hormonal profile tomorrow with a total T4 and TSH and also repeat the chemistries and we will supplement accordingly as needed. There is no i ndication at this time for any kind of thyroid pharmacotherapy and we expect improvement of her bioch emical indices as her clinical condition improves accordingly. Caitlyn Nieto MD cc: [id number] TT: 03/12/2017 19:37:35 Confirmation # [id number] Dictation # [id number] jn
[2017-03-13] MEDS: oxyCODONE 30 mg Immediate Release Tab PO PRN ×4 (01:53→18:28)
[2017-03-13 08:16] LABS: ALB/GLOB RATIO 1.2 (1.1-1.8); ALKALINE PHOSPHATASE 73 U/L (38-133); ALT/SGPT 31 U/L (7-56); AST/SGOT 31 U/L (15-39); BILIRUBIN,TOTAL 0.3 mg/dL (0.2-1.3); BLOOD UREA NITROGEN 7 mg/dL (7-21); CALCIUM 8.9 mg/dL (8.4-10.5); CARBON DIOXIDE 30 mmol/L (21-33); CHLORIDE 107 mmol/L (98-107); GFR AFRICAN-AMERICAN > 60; GLUCOSE,RANDOM 90 mg/dL (70-110); POTASSIUM 4.3 mmol/L (3.6-5.0); SODIUM 141 mmol/L (132-148); TOTAL PROTEIN 6.5 g/dL (5.8-8.3)
[2017-03-13 08:22] LABS: T4 8.3 ug/dL (5.5-11.0)
[2017-03-13 08:36] LABS: THYROID STIMULATING HORMONE 2.68 mIU/mL (0.46-4.68)
--- NOTE | 2017-03-13 13:49 | PCM.PYCHPN ---
Psychiatric Progress Note - Psychiatric Progress Note Patient seen today, length of contact: 30min Patient Chief Complaint: "I did not abuse medications, my doctor is willing to continue seeing me" (it is not true, will not accept pt anymore, as per report from the pharmacy pt was "doctor's shopping). Problems Identified/Issues Discussed: Suicide/ homicide prevention, past psychiatric h/o, current psychiatric symptoms , medical problems, risk/benefits and alternatives of medications, medications compliance, coping strategies, substance abuse h/o, relapse prevention, importance of follow up with psychiatrist and therapist, discharge plan. Medical Problems: pt reported h/o: "gout, fibromyalgia", chronic back pain, weight loss Diagnostic Results: 03/11/17 14:33 03/13/17 07:35 Lab Results 03/13/17 07:35: Thyroxine (T4) 8.3, TSH 3rd Generation 2.68 03/13/17 07:35: Sodium 141, Potassium 4.3, Chloride 107, Carbon Dioxide 30, Anion Gap 8 L, BUN 7, Creatinine 0.7, Est GFR ( Amer) > 60, Est GFR (Non- Af Amer) > 60, Random Glucose 90, Calcium 8.9, Total Bilirubin 0.3, AST 31, ALT 31, Alkaline Phosphatase 73, Total Protein 6.5, Albumin 3.6, Globulin 2.9, Albumin/Globulin Ratio 1.2 03/12/17 20:50: Urine Opiates Screen Positive H, Urine Methadone Screen Negative , Ur Barbiturates Screen Negative, Ur Phencyclidine Scrn Negative, Ur Amphetamines Screen Negative, U Benzodiazepines Scrn Negative, U Oth Cocaine Metabols Negative, U Cannabinoids Screen Negative 03/12/17 12:53: ESR 7 03/12/17 12:50: C-React Prot High Sens 2.43, Free T4 0.84 03/12/17 11:00: Fasting Glucose 92, Triglycerides 78, Cholesterol 208 H, LDL Cholesterol Direct 104, HDL Cholesterol 74 H 03/12/17 11:00: RPR Nonreactive 03/12/17 11:00: TSH 3rd Generation 0.32 L 03/11/17 14:33: Alcohol, Quantitative < 10 03/11/17 14:33: Salicylates < 1 L, Acetaminophen < 10.0 L 03/11/17 14:33: Sodium 140, Potassium 3.9, Chloride 106, Carbon Dioxide 28, Anion Gap 10, BUN 5 L, Creatinine 0.6, Est GFR ( Amer) > 60, Est GFR (Non -Af Amer) > 60, Random Glucose 93, Calcium 9.6, Total Bilirubin 0.4, AST 32, ALT 32, Alkaline Phosphatase 89, Total Protein 7.7, Albumin 4.2, Globulin 3.5, Albumin/Globulin Ratio 1.2 03/11/17 14:33: WBC 8.1, RBC 4.32, Hgb 13.3, Hct 38.0, MCV 88.0, MCH 30.8, MCHC 35.0, RDW 12.6, Plt Count 384, MPV 10.3, Gran % 79.5 H, Lymph % (Auto) 13.2 L, [place] % (Auto) 6.6 H, Eos % (Auto) 0.6 L, Baso % (Auto) 0.1, Gran # 6.42, Lymph # 1.1 L, [place] # 0.5, Eos # 0.1, Baso # 0.01 03/11/17 14:15: Urine Opiates Screen Negative, Urine Methadone Screen Negative, Ur Barbiturates Screen Negative, Ur Phencyclidine Scrn Negative, Ur Amphetamines Screen Negative, U Benzodiazepines Scrn Negative, U Oth Cocaine Metabols Negative, U Cannabinoids Screen Negative 03/11/17 14:15: Urine Color Yellow, Urine Appearance Clear, Urine pH 7.0, Ur Specific [place] <= 1.005, Urine Protein Negative, Urine Glucose (UA) Negative, Urine Ketones Negative, Urine Blood Negative, Urine Nitrate Negative, Urine Bilirubin Negative, Urine Urobilinogen 0.2, Ur Leukocyte Esterase Negative, Urine HCG, Qual Negative Vital Signs Temp Pulse Resp BP Pulse Ox 03/13/17 06:56 97.7 F 68 20 111/71 03/12/17 16:14 101 H 125/70 03/12/17 07:21 97.9 F 78 20 125/91 H 03/11/17 15:00 95 H 18 130/95 H 99 03/11/17 13:34 98.3 F 101 H 18 105/54 L 100 DSM 5 Symptoms Update: shortly pt is 36yo female, self reported h/o depression and anxiety, one previous psychiatric inpatient unit less than a month ago at [facility], pt denied suicidal attempts, brought herself to the hospital looking for help for her depressive and anxiety symptoms, med management. Pt needs further evaluation and stabilization, meds management. pt was seen at the tx team, presented to have fair personal hygiene, looked better, but reported to feel "like sh...t". based on yesterday report pt most likely was abusing pain meds pt was on oxy 360mg daily(confirmed by the pharmacy ), pt was "doctor's shopping" as per pharmacy report, when pt was asked about this pt said that it is not true and she will be accepted back by , was called pt will be not accepted back there, the chances that pt will be able to continue pain meds is low. pt was educated about it. moreover UDS was negative for any opioids, but this mortgage or loan underwriter repeated it yesterday pt is positive now (most likely pt was taking more than prescribed and run short or selling?). p medical team consulted, recommended to continue, will start tapering it down. in regards of mdd, pt reported that she is still depressed, hopeless and helpless. pt also was saying that she feels anxious and had "two horrible panic attacks", pt was educated about relaxation techniques and breathing exercised, in the middle of session pt started to cry hysterically. as per staff pt is fixated on pain meds. pt was seen by ortho, endocrinology, consults appreciated. Impression: MDD r/o panic disorder r/o GRACE r/o PTSD r/o opioids abuse and misuse Medication Change: Yes (prozac increased, neurontin increased) Medical Record Reviewed: Yes Consults ordered or reviewed: Medical consultation appreciated Orthopedic consultation appreciated Endocrinology consultation appreciated Mental Status Examination - Cognitive Function Orientation: Person, Place, Situation, Time Memory: Intact Attention: Poor Concentration: Poor Association: WNL Fund of Knowledge: WNL - Mood Mood: Depressed, Anxious - Affect Affect: Constricted (tearful) - Formal Thought Process Formal Thought Process: No Impairment - Suicidal Ideation Suicidal Ideation: No - Homicidal Ideation Homicidal Ideation: No Goal/Treatment Plan - Goal/Treatment Plan Need for Continued Stay: Remain at risks for inpatient hospitalization, Severe depression anxiety, Discharge may exacerbated symptoms, Severe functional impairment Progress Toward Problem(s) and Goals/Treatment Plan: Milieu/structure/supportive therapy will resume oxy for now 30mg qid with the plan to wean it off prozac 30mg po daily for depression and anxiety sonata will be discontinued Trazodone 50 mg at the nighttime will be started for insomnia and depression patient was educated about side effect of lowering blood pressure patient verbalize understanding appreciated medial consult appreciated ortho consult endocrinology consult appreciated will give PRN meds SW evaluation will monitor closely Estimated Date of D/C: 03/17/17 (we'll monitor closely)
--- NOTE | 2017-03-13 16:11 | PN ---
DATE: 03/13/2017 ROOM: 516 This is a 36-year-old female with generalized anxiety and depression and recent suicidal ideations an d is currently being followed closely in the psychiatric unit, and at this time is also being followe d for evaluation of abnormal thyroid studies. The repeat thyroid levels showed a T4 of 8.3 with a TS H of 2.68 and a free T4 of 0.84, which has normalized at this time. This is actually expected in the so-called acute sick euthyroid syndrome and no indication for any kind of thyroid pharmacotherapy. We will sign off from the endocrine followup otherwise. Caitlyn Nieto MD cc: [id number] TT: 03/13/2017 16:10:45 Confirmation # [id number] Dictation # [id number] en
[2017-03-13] MEDS: Bacitracin 500 Units/gm Oint Foilpak UD TOP SCH (16:57)
[2017-03-14] MEDS: oxyCODONE 30 mg Immediate Release Tab PO PRN ×4 (07:05→23:58)
[2017-03-14] MEDS: Bacitracin 500 Units/gm Oint Foilpak UD TOP SCH ×2 (08:13→18:13)
--- NOTE | 2017-03-14 15:28 | PCM.PYCHPN ---
Psychiatric Progress Note - Psychiatric Progress Note Patient seen today, length of contact: 30min Patient Chief Complaint: "I feel little better" Problems Identified/Issues Discussed: Suicide/ homicide prevention, past psychiatric h/o, current psychiatric symptoms , medical problems, risk/benefits and alternatives of medications, medications compliance, coping strategies, substance abuse h/o, relapse prevention, importance of follow up with psychiatrist and therapist, discharge plan. Medical Problems: pt reported h/o: "gout, fibromyalgia", chronic back pain, weight loss Diagnostic Results: 03/11/17 14:33 03/13/17 07:35 Lab Results 03/13/17 07:35: Thyroxine (T4) 8.3, TSH 3rd Generation 2.68 03/13/17 07:35: Sodium 141, Potassium 4.3, Chloride 107, Carbon Dioxide 30, Anion Gap 8 L, BUN 7, Creatinine 0.7, Est GFR ( Amer) > 60, Est GFR (Non- Af Amer) > 60, Random Glucose 90, Calcium 8.9, Total Bilirubin 0.3, AST 31, ALT 31, Alkaline Phosphatase 73, Total Protein 6.5, Albumin 3.6, Globulin 2.9, Albumin/Globulin Ratio 1.2 03/12/17 20:50: Urine Opiates Screen Positive H, Urine Methadone Screen Negative , Ur Barbiturates Screen Negative, Ur Phencyclidine Scrn Negative, Ur Amphetamines Screen Negative, U Benzodiazepines Scrn Negative, U Oth Cocaine Metabols Negative, U Cannabinoids Screen Negative 03/12/17 12:53: ESR 7 03/12/17 12:50: C-React Prot High Sens 2.43, Free T4 0.84 03/12/17 11:00: Fasting Glucose 92, Triglycerides 78, Cholesterol 208 H, LDL Cholesterol Direct 104, HDL Cholesterol 74 H 03/12/17 11:00: RPR Nonreactive 03/12/17 11:00: TSH 3rd Generation 0.32 L 03/11/17 14:33: Alcohol, Quantitative < 10 03/11/17 14:33: Salicylates < 1 L, Acetaminophen < 10.0 L 03/11/17 14:33: Sodium 140, Potassium 3.9, Chloride 106, Carbon Dioxide 28, Anion Gap 10, BUN 5 L, Creatinine 0.6, Est GFR ( Amer) > 60, Est GFR (Non -Af Amer) > 60, Random Glucose 93, Calcium 9.6, Total Bilirubin 0.4, AST 32, ALT 32, Alkaline Phosphatase 89, Total Protein 7.7, Albumin 4.2, Globulin 3.5, Albumin/Globulin Ratio 1.2 03/11/17 14:33: WBC 8.1, RBC 4.32, Hgb 13.3, Hct 38.0, MCV 88.0, MCH 30.8, MCHC 35.0, RDW 12.6, Plt Count 384, MPV 10.3, Gran % 79.5 H, Lymph % (Auto) 13.2 L, [place] % (Auto) 6.6 H, Eos % (Auto) 0.6 L, Baso % (Auto) 0.1, Gran # 6.42, Lymph # 1.1 L, [place] # 0.5, Eos # 0.1, Baso # 0.01 03/11/17 14:15: Urine Opiates Screen Negative, Urine Methadone Screen Negative, Ur Barbiturates Screen Negative, Ur Phencyclidine Scrn Negative, Ur Amphetamines Screen Negative, U Benzodiazepines Scrn Negative, U Oth Cocaine Metabols Negative, U Cannabinoids Screen Negative 03/11/17 14:15: Urine Color Yellow, Urine Appearance Clear, Urine pH 7.0, Ur Specific [place] <= 1.005, Urine Protein Negative, Urine Glucose (UA) Negative, Urine Ketones Negative, Urine Blood Negative, Urine Nitrate Negative, Urine Bilirubin Negative, Urine Urobilinogen 0.2, Ur Leukocyte Esterase Negative, Urine HCG, Qual Negative Vital Signs Temp Pulse Resp BP Pulse Ox 03/13/17 06:56 97.7 F 68 20 111/71 03/12/17 16:14 101 H 125/70 03/12/17 07:21 97.9 F 78 20 125/91 H 03/11/17 15:00 95 H 18 130/95 H 99 03/11/17 13:34 98.3 F 101 H 18 105/54 L 100 DSM 5 Symptoms Update: shortly pt is 36yo female, self reported h/o depression and anxiety, one previous psychiatric inpatient unit less than a month ago at [facility], pt denied suicidal attempts, brought herself to the hospital looking for help for her depressive and anxiety symptoms, med management. Pt needs further evaluation and stabilization, meds management. pt was seen at the tx team, presented to have fair personal hygiene, looked better, calmer, pt said that she feels "little better", pt was less tearful and less emotional, pt related to this sign writer letterer or painter better. patient tolerated trazodone well, reported that that was difficult for her to fall asleep, but overall is slept much better. Patient also reported that her panic attacks are not that severe. Patient still preoccupied with the pain medications, patient was fired from to pain management doctors, patient has tendency of misusing and abusing pain medications, this sign writer letterer or painter had phone conversation with patient about her addiction, patient is willing to be tapered down on oxycodone because patient will be not able to continue that medication as outpatient. Patient was offered to start muscle relaxant, Neurontin will be increased, Prozac was increased. Patient was educated about cognitive behavioral therapy, patient wasn't provided emotional support, empathic listening. we will start tapering down oxycodone, over the weekend he told decreased even further. as per staff pt is fixated on pain meds. pt was seen by ortho, endocrinology, consults appreciated. ppatient tolerates medications well, no side effects observed or reported. aims 0 no EPS Impression: MDD r/o panic disorder r/o GRACE r/o PTSD r/o opioids abuse and misuse Medication Change: Yes (prozac increased, neurontin increased) Medical Record Reviewed: Yes Consults ordered or reviewed: Medical consultation appreciated Orthopedic consultation appreciated Endocrinology consultation appreciated as per medical team, pt will be not able to continue pain meds, pt has h/o misusing meds and abusing them, will start taper it down. Mental Status Examination - Cognitive Function Orientation: Person, Place, Situation, Time Memory: Intact Attention: Poor (some improvement) Concentration: Poor (some improvement) Association: WNL Fund of Knowledge: WNL - Mood Mood: Depressed (a little bit better), Anxious (I'm still anxious) - Affect Affect: Constricted (less tearful) - Speech Speech: Appropriate - Formal Thought Process Formal Thought Process: No Impairment - Suicidal Ideation Suicidal Ideation: No - Homicidal Ideation Homicidal Ideation: No Goal/Treatment Plan - Goal/Treatment Plan Need for Continued Stay: Remain at risks for inpatient hospitalization, Severe depression anxiety, Discharge may exacerbated symptoms, Severe functional impairment Progress Toward Problem(s) and Goals/Treatment Plan: Milieu/structure/supportive therapy oxycodone will be decreased to 30 mg 3 times a day as needed than it has to be 20 mg twice a day as needed than 10 mg a day then it should be discontinued prozac 40mg po daily for depression and anxiety Trazodone will be increased to 100 mg mg at the nighttime will be started for insomnia and depression patient was educated about side effect muscle relaxant was ordered Neurontin was increased appreciated medial consult appreciated ortho consult endocrinology consult appreciated will give PRN meds SW evaluation will monitor closely Estimated Date of D/C: 03/17/17 (we'll monitor closely)
--- NOTE | 2017-03-14 20:32 | PN ---
DATE: 03/14/2017 In room 516. This is a 36-year-old female with recent major depression and currently being followed closely for ev aluation of abnormal thyroid function studies. She remains clinically euthyroid at this time and the latest thyroid studies showed a free T4 of 0.84 with a T4 or thyroxine level of 8.3 and a TSH of 2.6 8. The initial TSH was 0.32. This is indicative of the so-called acute sick euthyroid syndrome with no indication for any kind of thyroid pharmacotherapy. We would expect improvement of her thyroid i ndices as her clinical condition improves. We will sign off from the endocrine care of the patient a t this time. Caitlyn Nieto MD cc: [id number] TT: 03/14/2017 20:30:39 Confirmation # [id number] Dictation # [id number] trino
[2017-03-15] MEDS: Bacitracin 500 Units/gm Oint Foilpak UD TOP SCH ×2 (08:29→15:21)
[2017-03-15] MEDS: oxyCODONE 30 mg Immediate Release Tab PO PRN (08:36)
--- NOTE | 2017-03-15 14:27 | PCM.PYCHPN ---
Psychiatric Progress Note - Psychiatric Progress Note Patient seen today, length of contact: 30min Patient Chief Complaint: "I feel little better" Problems Identified/Issues Discussed: Suicide/ homicide prevention, past psychiatric h/o, current psychiatric symptoms , medical problems, risk/benefits and alternatives of medications, medications compliance, coping strategies, substance abuse h/o, relapse prevention, importance of follow up with psychiatrist and therapist, discharge plan. Medical Problems: pt reported h/o: "gout, fibromyalgia", chronic back pain, weight loss Diagnostic Results: 03/11/17 14:33 03/13/17 07:35 Lab Results 03/13/17 07:35: Thyroxine (T4) 8.3, TSH 3rd Generation 2.68 03/13/17 07:35: Sodium 141, Potassium 4.3, Chloride 107, Carbon Dioxide 30, Anion Gap 8 L, BUN 7, Creatinine 0.7, Est GFR ( Amer) > 60, Est GFR (Non- Af Amer) > 60, Random Glucose 90, Calcium 8.9, Total Bilirubin 0.3, AST 31, ALT 31, Alkaline Phosphatase 73, Total Protein 6.5, Albumin 3.6, Globulin 2.9, Albumin/Globulin Ratio 1.2 03/12/17 20:50: Urine Opiates Screen Positive H, Urine Methadone Screen Negative , Ur Barbiturates Screen Negative, Ur Phencyclidine Scrn Negative, Ur Amphetamines Screen Negative, U Benzodiazepines Scrn Negative, U Oth Cocaine Metabols Negative, U Cannabinoids Screen Negative 03/12/17 12:53: ESR 7 03/12/17 12:50: C-React Prot High Sens 2.43, Free T4 0.84 03/12/17 11:00: Fasting Glucose 92, Triglycerides 78, Cholesterol 208 H, LDL Cholesterol Direct 104, HDL Cholesterol 74 H 03/12/17 11:00: RPR Nonreactive 03/12/17 11:00: TSH 3rd Generation 0.32 L 03/11/17 14:33: Alcohol, Quantitative < 10 03/11/17 14:33: Salicylates < 1 L, Acetaminophen < 10.0 L 03/11/17 14:33: Sodium 140, Potassium 3.9, Chloride 106, Carbon Dioxide 28, Anion Gap 10, BUN 5 L, Creatinine 0.6, Est GFR ( Amer) > 60, Est GFR (Non -Af Amer) > 60, Random Glucose 93, Calcium 9.6, Total Bilirubin 0.4, AST 32, ALT 32, Alkaline Phosphatase 89, Total Protein 7.7, Albumin 4.2, Globulin 3.5, Albumin/Globulin Ratio 1.2 03/11/17 14:33: WBC 8.1, RBC 4.32, Hgb 13.3, Hct 38.0, MCV 88.0, MCH 30.8, MCHC 35.0, RDW 12.6, Plt Count 384, MPV 10.3, Gran % 79.5 H, Lymph % (Auto) 13.2 L, [place] % (Auto) 6.6 H, Eos % (Auto) 0.6 L, Baso % (Auto) 0.1, Gran # 6.42, Lymph # 1.1 L, [place] # 0.5, Eos # 0.1, Baso # 0.01 03/11/17 14:15: Urine Opiates Screen Negative, Urine Methadone Screen Negative, Ur Barbiturates Screen Negative, Ur Phencyclidine Scrn Negative, Ur Amphetamines Screen Negative, U Benzodiazepines Scrn Negative, U Oth Cocaine Metabols Negative, U Cannabinoids Screen Negative 03/11/17 14:15: Urine Color Yellow, Urine Appearance Clear, Urine pH 7.0, Ur Specific [place] <= 1.005, Urine Protein Negative, Urine Glucose (UA) Negative, Urine Ketones Negative, Urine Blood Negative, Urine Nitrate Negative, Urine Bilirubin Negative, Urine Urobilinogen 0.2, Ur Leukocyte Esterase Negative, Urine HCG, Qual Negative Vital Signs Temp Pulse Resp BP Pulse Ox 03/13/17 06:56 97.7 F 68 20 111/71 03/12/17 16:14 101 H 125/70 03/12/17 07:21 97.9 F 78 20 125/91 H 03/11/17 15:00 95 H 18 130/95 H 99 03/11/17 13:34 98.3 F 101 H 18 105/54 L 100 Temp Pulse Resp BP Pulse Ox 97.2 F L 69 20 107/71 99 03/15/17 07:39 03/15/17 07:39 03/15/17 07:39 03/15/17 07:39 03/11/17 15:00 DSM 5 Symptoms Update: shortly pt is 36yo female, self reported h/o depression and anxiety, one previous psychiatric inpatient unit less than a month ago at [facility], pt denied suicidal attempts, brought herself to the hospital looking for help for her depressive and anxiety symptoms, med management. Pt needs further evaluation and stabilization, meds management. pt was seen at her room, presented to have fair personal hygiene, looked better , calmer, pt still fixated on pain meds, said that she has a lot of pain meds at home and if she will be weaned off pain meds here that she will be taking it at home, this wrier educated pt about addiction and high chances that she will be not able to continue on those meds, pt verbalized understanding, pt is aware that not this continuity writer neither medical team will NOT give prescription for her pain meds. besides that mood is improving, anxiety is improving, sleep is improving. Patient was educated about cognitive behavioral therapy, patient wasn't provided emotional support, empathic listening. pt was seen by ortho, endocrinology, consults appreciated. ppatient tolerates medications well, no side effects observed or reported. aims 0 no EPS Impression: MDD r/o panic disorder r/o GRACE r/o PTSD r/o opioids abuse and misuse Medication Change: Yes (prozac increased, flexaril started, oxy decreased, benadryl hs) Medical Record Reviewed: Yes Consults ordered or reviewed: Medical consultation appreciated Orthopedic consultation appreciated Endocrinology consultation appreciated as per medical team, pt will be not able to continue pain meds, pt has h/o misusing meds and abusing them, will start taper it down. Mental Status Examination - Cognitive Function Orientation: Person, Place, Situation, Time Memory: Intact Attention: Poor (some improvement) Concentration: Poor (some improvement) Association: WNL Fund of Knowledge: WNL - Mood Mood: Depressed (a little bit better), Anxious ("I feel less anxious") - Affect Affect: Constricted (less tearful) - Speech Speech: Appropriate - Formal Thought Process Formal Thought Process: No Impairment - Suicidal Ideation Suicidal Ideation: No - Homicidal Ideation Homicidal Ideation: No Goal/Treatment Plan - Goal/Treatment Plan Need for Continued Stay: Remain at risks for inpatient hospitalization, Severe depression anxiety, Discharge may exacerbated symptoms, Severe functional impairment Progress Toward Problem(s) and Goals/Treatment Plan: Milieu/structure/supportive therapy oxycodone will be decreased to 30 mg 3 times a day as needed than it has to be 20 mg twice a day as needed than 10 mg a day then it should be discontinued prozac 60mg po daily for depression and anxiety Trazodone 100 mg mg at the nighttime will be started for insomnia and depression patient was educated about side effect pt c/o difficulties to fall asleep will add benadryl muscle relaxant was ordered Neurontin 400mg qid for anxiety, neuropathy, pain appreciated medial consult appreciated ortho consult endocrinology consult appreciated will give PRN meds SW evaluation will monitor closely Estimated Date of D/C: 03/17/17 (we'll monitor closely)
[2017-03-15] MEDS: oxyCODONE 20 mg Immediate Release Tab PO PRN ×2 (15:04→20:04)
[2017-03-16] MEDS: oxyCODONE 20 mg Immediate Release Tab PO PRN (06:02)
[2017-03-16 06:36] VITALS: RESP 19; TEMP 97.6
[2017-03-16] MEDS: Bacitracin 500 Units/gm Oint Foilpak UD TOP SCH ×2 (08:29→17:22)
[2017-03-16] MEDS ORDERED: oxyCODONE 20 mg Immediate Release Tab PO PRN (11:15)
[2017-03-16] MEDS: oxyCODONE 10 mg Immediate Release Tab PO PRN ×2 (11:29→17:22)
--- NOTE | 2017-03-16 12:24 | PCM.PYCHPN ---
Psychiatric Progress Note - Psychiatric Progress Note Patient seen today, length of contact: 30min Patient Chief Complaint: "my anxiety and depression got better by 30-40%" Problems Identified/Issues Discussed: Suicide/ homicide prevention, past psychiatric h/o, current psychiatric symptoms , medical problems, risk/benefits and alternatives of medications, medications compliance, coping strategies, substance abuse h/o, relapse prevention, importance of follow up with psychiatrist and therapist, discharge plan. Medical Problems: pt reported h/o: "gout, fibromyalgia", chronic back pain, weight loss Diagnostic Results: 03/11/17 14:33 03/13/17 07:35 Lab Results 03/13/17 07:35: Thyroxine (T4) 8.3, TSH 3rd Generation 2.68 03/13/17 07:35: Sodium 141, Potassium 4.3, Chloride 107, Carbon Dioxide 30, Anion Gap 8 L, BUN 7, Creatinine 0.7, Est GFR ( Amer) > 60, Est GFR (Non- Af Amer) > 60, Random Glucose 90, Calcium 8.9, Total Bilirubin 0.3, AST 31, ALT 31, Alkaline Phosphatase 73, Total Protein 6.5, Albumin 3.6, Globulin 2.9, Albumin/Globulin Ratio 1.2 03/12/17 20:50: Urine Opiates Screen Positive H, Urine Methadone Screen Negative , Ur Barbiturates Screen Negative, Ur Phencyclidine Scrn Negative, Ur Amphetamines Screen Negative, U Benzodiazepines Scrn Negative, U Oth Cocaine Metabols Negative, U Cannabinoids Screen Negative 03/12/17 12:53: ESR 7 03/12/17 12:50: C-React Prot High Sens 2.43, Free T4 0.84 03/12/17 11:00: Fasting Glucose 92, Triglycerides 78, Cholesterol 208 H, LDL Cholesterol Direct 104, HDL Cholesterol 74 H 03/12/17 11:00: RPR Nonreactive 03/12/17 11:00: TSH 3rd Generation 0.32 L 03/11/17 14:33: Alcohol, Quantitative < 10 03/11/17 14:33: Salicylates < 1 L, Acetaminophen < 10.0 L 03/11/17 14:33: Sodium 140, Potassium 3.9, Chloride 106, Carbon Dioxide 28, Anion Gap 10, BUN 5 L, Creatinine 0.6, Est GFR ( Amer) > 60, Est GFR (Non -Af Amer) > 60, Random Glucose 93, Calcium 9.6, Total Bilirubin 0.4, AST 32, ALT 32, Alkaline Phosphatase 89, Total Protein 7.7, Albumin 4.2, Globulin 3.5, Albumin/Globulin Ratio 1.2 03/11/17 14:33: WBC 8.1, RBC 4.32, Hgb 13.3, Hct 38.0, MCV 88.0, MCH 30.8, MCHC 35.0, RDW 12.6, Plt Count 384, MPV 10.3, Gran % 79.5 H, Lymph % (Auto) 13.2 L, [place] % (Auto) 6.6 H, Eos % (Auto) 0.6 L, Baso % (Auto) 0.1, Gran # 6.42, Lymph # 1.1 L, [place] # 0.5, Eos # 0.1, Baso # 0.01 03/11/17 14:15: Urine Opiates Screen Negative, Urine Methadone Screen Negative, Ur Barbiturates Screen Negative, Ur Phencyclidine Scrn Negative, Ur Amphetamines Screen Negative, U Benzodiazepines Scrn Negative, U Oth Cocaine Metabols Negative, U Cannabinoids Screen Negative 03/11/17 14:15: Urine Color Yellow, Urine Appearance Clear, Urine pH 7.0, Ur Specific [place] <= 1.005, Urine Protein Negative, Urine Glucose (UA) Negative, Urine Ketones Negative, Urine Blood Negative, Urine Nitrate Negative, Urine Bilirubin Negative, Urine Urobilinogen 0.2, Ur Leukocyte Esterase Negative, Urine HCG, Qual Negative Vital Signs Temp Pulse Resp BP Pulse Ox 03/13/17 06:56 97.7 F 68 20 111/71 03/12/17 16:14 101 H 125/70 03/12/17 07:21 97.9 F 78 20 125/91 H 03/11/17 15:00 95 H 18 130/95 H 99 03/11/17 13:34 98.3 F 101 H 18 105/54 L 100 Temp Pulse Resp BP Pulse Ox 97.2 F L 69 20 107/71 99 03/15/17 07:39 03/15/17 07:39 03/15/17 07:39 03/15/17 07:39 03/11/17 15:00 Temp Pulse Resp BP Pulse Ox 97.6 F 70 19 98/61 L 99 03/16/17 06:35 03/16/17 06:35 03/16/17 06:35 03/16/17 06:35 03/11/17 15:00 DSM 5 Symptoms Update: shortly pt is 36yo female, self reported h/o depression and anxiety, one previous psychiatric inpatient unit less than a month ago at [facility], pt denied suicidal attempts, brought herself to the hospital looking for help for her depressive and anxiety symptoms, med management. Pt needs further evaluation and stabilization, meds management. 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 Pt was offered to have ibuprofen, flexeril, pt was in agreement with that plan, pt requested to be seen by medical team, called. moreover pt is very vague abut pain areas, pt has imple sprain of her right ankle, was seen by ortho, pt also c/o chronic back pain and fibromyalgia, (obviously it is not indication for oxycodone). pt reported that she did not sleep but as per RN report pt slept at 5pm yesterday, pt also fell asleep at 11pm and slept through the night. pt is manipulating, pt presented much better, no crying, hygiene is better. Patient was educated about cognitive behavioral therapy, patient wasn't provided emotional support, empathic listening. pt was seen by ortho, endocrinology, consults appreciated. ppatient tolerates medications well, no side effects observed or reported. aims 0 no EPS Impression: MDD r/o panic disorder r/o GRACE r/o PTSD r/o opioids abuse and misuse Medication Change: Yes (oxy decreased, flexaril increased, ibuprofen started) Medical Record Reviewed: Yes Consults ordered or reviewed: Medical consultation appreciated Orthopedic consultation appreciated Endocrinology consultation appreciated as per medical team, pt will be not able to continue pain meds, pt has h/o misusing meds and abusing them, will start taper it down. Mental Status Examination - Cognitive Function Orientation: Person, Place, Situation, Time Memory: Intact Attention: Poor (some improvement) Concentration: Poor (some improvement) Association: WNL Fund of Knowledge: WNL - Mood Mood: Depressed ("I feel better"), Anxious ("I have panic attacks only once a day") - Affect Affect: Constricted (more reactive, mood congruent) - Speech Speech: Appropriate - Formal Thought Process Formal Thought Process: No Impairment - Suicidal Ideation Suicidal Ideation: No - Homicidal Ideation Homicidal Ideation: No Goal/Treatment Plan - Goal/Treatment Plan Need for Continued Stay: Remain at risks for inpatient hospitalization, Severe depression anxiety, Discharge may exacerbated symptoms, Severe functional impairment Progress Toward Problem(s) and Goals/Treatment Plan: Milieu/structure/supportive therapy oxycodone will be decreased to 10 mg tid, tomorrow could be d/c prozac 60mg po daily for depression and anxiety Trazodone 100 mg mg at the nighttime will be started for insomnia and depression patient was educated about side effect pt c/o difficulties to fall asleep will add benadryl muscle relaxant was ordered ibuprofen scheduled Neurontin 400mg qid for anxiety, neuropathy, pain appreciated medial consult appreciated ortho consult endocrinology consult appreciated will give PRN meds SW evaluation will monitor closely Estimated Date of D/C: 03/17/17 (we'll monitor closely)
[2017-03-16 16:26] VITALS: BP 115/56; PULSE 81
[2017-03-17] MEDS: oxyCODONE 10 mg Immediate Release Tab PO PRN ×2 (04:29→09:20)
[2017-03-17] MEDS: Bacitracin 500 Units/gm Oint Foilpak UD TOP SCH (09:18)
--- NOTE | 2017-03-17 14:34 | PCM.PYCHDC ---
Mental Status Examination - Mental Status Examination Orientation: Person, Place, Situation, Time Memory: Intact Mood: Neutral Affect: Broad (and mood congruent) Speech: Appropriate Attention: WNL Concentration: WNL Association: WNL Fund of Knowledge: WNL Formal Thought Process: No Impairment Description of patient's judgement and insight: Pt has improved insight into mental and medical illness, pt was compliant with medications and unit rules and regulations, pt was going to groups, was calm, cooperative, socially appropriate, no behavioral incidents, no agitation, no aggression. Psychotic Thoughts and Behaviors: Pt denied v/a/t hallucinations, denied paranoid ideations, pt does not appear to be psychotic, and thought process is goal directed. Suicidal Ideation: No Current Homicidal Ideation?: No Plan: pt adamantly denied thoughts of harming self or others denied intent or plan. Discharge Summary - Discharge Note Reason for Hospitalization: pt was admitted for evaluation of depressive, anxiety symptoms, passive wish to be . Psychiatric History (includes Medical, Family, Personal Hx): see HPI Laboratory Data: 03/11/17 14:33 03/13/17 07:35 Lab Results 03/13/17 07:35: Thyroxine (T4) 8.3, TSH 3rd Generation 2.68 03/13/17 07:35: Sodium 141, Potassium 4.3, Chloride 107, Carbon Dioxide 30, Anion Gap 8 L, BUN 7, Creatinine 0.7, Est GFR ( Amer) > 60, Est GFR (Non- Af Amer) > 60, Random Glucose 90, Calcium 8.9, Total Bilirubin 0.3, AST 31, ALT 31, Alkaline Phosphatase 73, Total Protein 6.5, Albumin 3.6, Globulin 2.9, Albumin/Globulin Ratio 1.2 03/12/17 20:50: Urine Opiates Screen Positive H, Urine Methadone Screen Negative , Ur Barbiturates Screen Negative, Ur Phencyclidine Scrn Negative, Ur Amphetamines Screen Negative, U Benzodiazepines Scrn Negative, U Oth Cocaine Metabols Negative, U Cannabinoids Screen Negative 03/12/17 12:53: ESR 7 03/12/17 12:50: C-React Prot High Sens 2.43, Free T4 0.84 03/12/17 11:00: Fasting Glucose 92, Triglycerides 78, Cholesterol 208 H, LDL Cholesterol Direct 104, HDL Cholesterol 74 H 03/12/17 11:00: RPR Nonreactive 03/12/17 11:00: TSH 3rd Generation 0.32 L 03/11/17 14:33: Alcohol, Quantitative < 10 03/11/17 14:33: Salicylates < 1 L, Acetaminophen < 10.0 L 03/11/17 14:33: Sodium 140, Potassium 3.9, Chloride 106, Carbon Dioxide 28, Anion Gap 10, BUN 5 L, Creatinine 0.6, Est GFR ( Amer) > 60, Est GFR (Non -Af Amer) > 60, Random Glucose 93, Calcium 9.6, Total Bilirubin 0.4, AST 32, ALT 32, Alkaline Phosphatase 89, Total Protein 7.7, Albumin 4.2, Globulin 3.5, Albumin/Globulin Ratio 1.2 03/11/17 14:33: WBC 8.1, RBC 4.32, Hgb 13.3, Hct 38.0, MCV 88.0, MCH 30.8, MCHC 35.0, RDW 12.6, Plt Count 384, MPV 10.3, Gran % 79.5 H, Lymph % (Auto) 13.2 L, [place] % (Auto) 6.6 H, Eos % (Auto) 0.6 L, Baso % (Auto) 0.1, Gran # 6.42, Lymph # 1.1 L, [place] # 0.5, Eos # 0.1, Baso # 0.01 03/11/17 14:15: Urine Opiates Screen Negative, Urine Methadone Screen Negative, Ur Barbiturates Screen Negative, Ur Phencyclidine Scrn Negative, Ur Amphetamines Screen Negative, U Benzodiazepines Scrn Negative, U Oth Cocaine Metabols Negative, U Cannabinoids Screen Negative 03/11/17 14:15: Urine Color Yellow, Urine Appearance Clear, Urine pH 7.0, Ur Specific [place] <= 1.005, Urine Protein Negative, Urine Glucose (UA) Negative, Urine Ketones Negative, Urine Blood Negative, Urine Nitrate Negative, Urine Bilirubin Negative, Urine Urobilinogen 0.2, Ur Leukocyte Esterase Negative, Urine HCG, Qual Negative Vital Signs Temp Pulse Resp BP Pulse Ox 03/16/17 16:26 81 115/56 L 03/16/17 06:35 97.6 F 70 19 98/61 L 03/15/17 16:30 96 H 102/61 03/15/17 07:39 97.2 F L 69 20 107/71 03/14/17 16:22 76 114/69 03/14/17 07:35 98.2 F 77 20 120/80 03/13/17 16:00 90 20 111/71 03/13/17 06:56 97.7 F 68 20 111/71 03/12/17 16:14 101 H 125/70 03/12/17 07:21 97.9 F 78 20 125/91 H 03/11/17 15:00 95 H 18 130/95 H 99 03/11/17 13:34 98.3 F 101 H 18 105/54 L 100 Consultations:: List each consultation separately and include: 1. Reason for request. 2. Findings. 3. Follow-up Consultations: Medical consultation appreciated Orthopedic consultation appreciated Endocrinology consultation appreciated as per medical team, pt will be not able to continue pain meds, pt has h/o misusing meds and abusing them, pt was tapered down on pain meds Summary of Hospital Course include:: 1. Description of specific treatment plan utilized for patients during their course of treatmen. 2. Summarize the time- course for resolution of acute symptoms and/or regressed behaviors. 3. Describe issues identified and worked on during hospitalization. 4. Describe medication utilized. 5. Describe medical problems identified and treated. 6. Reassessment of suicide risk Summary of Hospital Course: shortly pt is 36yo female, self reported h/o depression and anxiety, one previous psychiatric inpatient unit less than a month ago at [facility], pt denied suicidal attempts, brought herself to the hospital looking for help for her depressive and anxiety symptoms, med management. Pt needs further evaluation and stabilization, meds management. initially patient presented to have fair personal hygiene, tearful during the interview, seems to be careless about her appearance, baggy clothes, good ADLs, pt ambulates with the walker. previous record from [facility] reviewed. as per notes: pt was manipulative and could get "any drug i need". 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 oxycodone 30mg two tabs q4hrs by [facility] filled March 06 pills given gabapentin 300mg po tid soma 350mg po bid Meloxican 15mg po daily zoloft 75mg po daily Remeron 15mg hs. pt has tendency of taking more meds as prescribed. [email or web address] checked oxy 30mg q4hrs by at [place], filled March 06 pills given Soma 350 20 tabs givenfilled february 26, by oxycodone 30mg po q4hr [address] Herron was called, patient was fired from his practice, patient was misusing and abusing pain medications. pt reported for the past year she started to experience "panic attacks", where she could not breath, feeling of chocking, fear of dying, pt also has feeling that something horrible could happen to her 4yo daughter(currently on vacation with grandparents), pt also said that frequency of attacks are twice a day. it is affecting pt's functionality. pt said that she started to experience a flashbacks about suicidal attempt of her mother, pt was 21yo, pt's mother suffered from alcoholism and hang herself. pt also said anxiety symptoms making her feel very depressed, hopeless and helpless as well as guilty. pt said that she started to have suicidal thoughts but denied any plan or intent of killing herself, pt wants to get better. pt has h/o hypomanic episodes in the past, pressured speech, racing thoughts, irritability, insomnia, multitasking. pasty psych h/o: was admitted to the [facility], was d/c on zoloft, neurontin, remeron. family h/o: alcoholism, mother committed suicide at age of 45 by hanging herself. medical h/o: pt has "gout, fibromyalgia, pt claimed that she felled in [facility], reported twisting her ankle, pt reported losing 65 LB for the past six month due to her depression and anxiety. pt denied using drugs, denied drinking alcohol, pt smokes 1/2 pack a day. counseling provided. Smoking Cessation Counseling: The patient was counseled as to the multiple risks to his/her health from continued use of tobacco products. It was explained that continuing to smoke may lead to multiple short and prison negative health consequences, including but not limited to mouth/esophageal /lung cancer, COPD, and heart disease. He/she states he/she understands these risks, and also understands the options and resources available to him/her to help him/her stop smoking. Nicotine replacement therapy, local hotlines, and local resources were discussed as viable options for helping him/her stop his/her tobacco use. The total time spent counseling the patient regarding tobacco cessation was 3 minutes pt was educated about all meds, risk, benefits and alternatives. 03/11/17 14:33 03/11/17 14:33 Lab Results 03/12/17 12:53: ESR 7 03/12/17 12:50: C-React Prot High Sens Pending, Free T4 0.84 03/12/17 11:00: Fasting Glucose 92, Triglycerides 78, Cholesterol 208 H, LDL Cholesterol Direct 104, HDL Cholesterol 74 H 03/12/17 11:00: TSH 3rd Generation 0.32 L 03/11/17 14:33: Alcohol, Quantitative < 10 03/11/17 14:33: Salicylates < 1 L, Acetaminophen < 10.0 L 03/11/17 14:33: Sodium 140, Potassium 3.9, Chloride 106, Carbon Dioxide 28, Anion Gap 10, BUN 5 L, Creatinine 0.6, Est GFR ( Amer) > 60, Est GFR (Non -Af Amer) > 60, Random Glucose 93, Calcium 9.6, Total Bilirubin 0.4, AST 32, ALT 32, Alkaline Phosphatase 89, Total Protein 7.7, Albumin 4.2, Globulin 3.5, Albumin/Globulin Ratio 1.2 03/11/17 14:33: WBC 8.1, RBC 4.32, Hgb 13.3, Hct 38.0, MCV 88.0, MCH 30.8, MCHC 35.0, RDW 12.6, Plt Count 384, MPV 10.3, Gran % 79.5 H, Lymph % (Auto) 13.2 L, [place] % (Auto) 6.6 H, Eos % (Auto) 0.6 L, Baso % (Auto) 0.1, Gran # 6.42, Lymph # 1.1 L, [place] # 0.5, Eos # 0.1, Baso # 0.01 03/11/17 14:15: Urine Opiates Screen Negative, Urine Methadone Screen Negative, Ur Barbiturates Screen Negative, Ur Phencyclidine Scrn Negative, Ur Amphetamines Screen Negative, U Benzodiazepines Scrn Negative, U Oth Cocaine Metabols Negative, U Cannabinoids Screen Negative 03/11/17 14:15: Urine Color Yellow, Urine Appearance Clear, Urine pH 7.0, Ur Specific [place] <= 1.005, Urine Protein Negative, Urine Glucose (UA) Negative, Urine Ketones Negative, Urine Blood Negative, Urine Nitrate Negative, Urine Bilirubin Negative, Urine Urobilinogen 0.2, Ur Leukocyte Esterase Negative, Urine HCG, Qual Negative Vital Signs Temp Pulse Resp BP Pulse Ox 03/12/17 07:21 97.9 F 78 20 125/91 H 03/11/17 15:00 95 H 18 130/95 H 99 03/11/17 13:34 98.3 F 101 H 18 105/54 L 100 over the course of this hospitalization patient was stabilized on the following medications: oxycodone was weaned off prozac was slowly increased to 60mg po daily for depression and anxiety Trazodone we'll slowly increased to 100 mg mg at the nighttime will be started for insomnia and depression patient was educated about side effect muscle relaxant was ordered ibuprofen scheduled Neurontin 400mg qid for anxiety, neuropathy, pain patient was seen by medical team, orthopedist team, fire systems inspector. Please see consultation note for more detailed information Over the course of this hospitalization patient improved significantly, depression is improved and anxiety improved sleep was much better, patient does not have any psychotic symptoms. Patient deemed ready for discharge. At the time of the discharge pt denied been depressed, denied thoughts of harming self or others, denied psychotic symptoms, and pt does not appeared to be psychotic, denied been anxious, was considered to pose no threat to self or others, will be following up With outpatient provider, information about follow up appointment, time and address provided to the pt, it is patient responsibility to follow up with outpatient clinic, PMD as well as specialists ( see SW note for more detailed information). In case pt will need to obtain results of studies pending at discharge pt was provided with contact information of Psychiatric Inpatient unit [phone] as well as Medical Record Department [phone]. Nicotine patch was offered Counseling about smoking and addiction to the pain medicine was discussed [facility] smoking cessation treatment program information was provided by the pt was provided with prescriptions for all of medications (please see medication reconciliation form) Pt was educated about safety plan in case of worsening of symptoms or in case of suicidal or homicidal ideation call 911 or go to the nearest ER, also was educated to take meds as prescribed and stay away from drugs, pt verbalized understanding. - Diagnosis (1) Bipolar affective, depress, unspec Status: Acute (2) Panic disorder Status: Acute - Final Diagnosis (DSM 5) Condition upon Discharge: FAIR Disposition: HOME/ ROUTINE Follow-up Treatment Plan: At the time of the discharge pt denied been depressed, denied thoughts of harming self or others, denied psychotic symptoms, and pt does not appeared to be psychotic, denied been anxious, was considered to pose no threat to self or others, will be following up With outpatient provider, information about follow up appointment, time and address provided to the pt, it is patient responsibility to follow up with outpatient clinic, PMD as well as specialists ( see note for more detailed information). In case pt will need to obtain results of studies pending at discharge pt was provided with contact information of Psychiatric Inpatient unit [phone] as well as Medical Record Department [phone]. Nicotine patch was offered Counseling about smoking and addiction to the pain medicine was discussed [facility] smoking cessation treatment program information was provided by the pt was provided with prescriptions for all of medications (please see medication reconciliation form) Pt was educated about safety plan in case of worsening of symptoms or in case of suicidal or homicidal ideation call 911 or go to the nearest ER, also was educated to take meds as prescribed and stay away from drugs, pt verbalized understanding. Prescriptions/Medication Reconciliation: Bacitracin 1 ea TOP BID #1 Cyclobenzaprine [Flexeril] 10 mg PO TID PRN #45 tab PRN Reason: pain, muslcle spasm DiphenhydrAMINE [Benadryl] 50 mg PO HS #14 cap FLUoxetine [Fluoxetine HCl] 20 mg PO DAILY #14 cap Fluoxetine HCl [Prozac] 40 mg PO DAILY #14 capsule Gabapentin [Neurontin] 400 mg PO QID #60 cap hydrOXYzine Pamoate [Vistaril] 50 mg PO Q8 PRN #45 cap PRN Reason: Anxiety Ibuprofen [Motrin Tab] 800 mg PO TID #45 tab Nicotine 14 mg/24 hr [Nicoderm CQ] 1 patch TD DAILY #14 patch traZODone [Desyrel] 100 mg PO HS #14 tab - Smoking Cessation Smoking Cessation Medication prescribed: Yes - Antipsychotic Medications Pt discharged on 2 or more routine antipsychotic medications: No
== END 2017-03-17 13:36 | disposition home or self-care (01) | DRG 430 ==
LOC: ED 13:25 → ERH 15:18 → EDUNIT# 15:18 → PSYC 16:08
PROVIDERS: ADMIT Psychiatry & Neurology Psychiatry; ATTEND Psychiatry & Neurology Psychiatry
DX: F31.9 Bipolar disorder, unspecified (principal); F32.1 Major depressive disorder, single episode, moderate; R45.851 Suicidal ideations; F11.10 Opioid abuse, uncomplicated; F41.0 Panic disorder [episodic paroxysmal anxiety]; E07.81 Sick-euthyroid syndrome; F17.200 Nicotine dependence, unspecified, uncomplicated; F41.1 Generalized anxiety disorder; G47.00 Insomnia, unspecified; G62.9 Polyneuropathy, unspecified; G89.4 Chronic pain syndrome; M10.9 Gout, unspecified; M79.7 Fibromyalgia; S93.401A Sprain of unspecified ligament of right ankle, initial encounter; Z79.899 Other long term (current) drug therapy; Z81.1 Family history of alcohol abuse and dependence; M54.9 Dorsalgia, unspecified; G89.29 Other chronic pain; R63.4 Abnormal weight loss; F43.10 Post-traumatic stress disorder, unspecified

== ENCOUNTER 2017-04-06 11:27 | Emergency (ER) | payer MEDICAID ==
[2017-04-06 11:27] VITALS: BMI 25.8
[2017-04-06 11:34] VITALS: TEMP 97.2
--- NOTE | 2017-04-06 11:44 | ED PDOC ---
Arrival/HPI - General Chief Complaint: Abdominal Pain Time Seen by Provider: 04/06/17 11:34 Historian: Patient - History of Present Illness Narrative History of Present Illness (Text): 04/06/17 11:41 36 y/o female, no significant pmh, allergic to zolpidem, c/o upper abdominal pain x 2 days with nausea/vomiting and loose stool. Pt. stated that she has upper abdominal pain, cramping sensation, associated with the nausea and couple episodes of vomiting and loose stool yesterday and today. Pt. has no recent traveling for the past 4 weeks and no traveling outside of the [facility] for the past 4 weeks, no fever or chills, no dizziness, no night sweat, no weight loss, no other medical or psychological complaints. Past Medical History - Provider Review Nursing Documentation Reviewed: Yes - Infectious Disease Hx of Infectious Diseases: None - Tetanus Immunization Tetanus Immunization: Unknown - Cardiac Hx Cardiac Disorders: No - Pulmonary Hx Respiratory Disorders: No - Neurological Hx Neurological Disorder: No - HEENT Hx HEENT Disorder: No - Renal Hx Renal Disorder: No - Endocrine/Metabolic Hx Endocrine Disorders: No - Hematological/Oncological Hx Blood Disorders: No - Integumentary Hx Dermatological Disorder: No - Musculoskeletal/Rheumatological Hx Musculoskeletal Disorders: No Other/Comment: Fibromyalgia x 10 years - Gastrointestinal Hx Gastrointestinal Disorders: No - Genitourinary/Gynecological Hx Genitourinary Disorders: No - Psychiatric Hx Psychophysiologic Disorder: Yes Hx Anxiety: Yes Hx Depression: Yes Hx Substance Use: No - Surgical History Hx Section: Yes (07/13/2012) - Anesthesia Hx Anesthesia: Yes Hx Anesthesia Reactions: No Family/Social History - Physician Review Nursing Documentation Reviewed: Yes Family/Social History: Unknown Family HX Smoking Status: Light Smoker < 10 Cigarettes Daily Hx Alcohol Use: No Hx Substance Use: No Allergies/Home Meds Allergies/Adverse Reactions: Allergies zolpidem tartrate [From Ambien] Allergy (Verified 04/06/17 11:34) SWELLING Home Medications: Home Meds Medication Instructions Recorded Confirmed Carisoprodol [Soma] 650 mg PO BID 09/18/16 04/06/17 oxyCODONE [oxyCODONE Immediate 30 mg PO Q4 09/18/16 04/06/17 Release Tab] Review of Systems - Review of Systems Constitutional: absent: Fatigue, Fevers Eyes: absent: Vision Changes ENT: absent: Hearing Changes Respiratory: absent: SOB, Cough Cardiovascular: absent: Chest Pain Gastrointestinal: Abdominal Pain, Diarrhea, Nausea, Vomiting Musculoskeletal: absent: Arthralgias, Back Pain, Neck Pain Skin: absent: Rash, Pruritis, Skin Lesions Neurological: absent: Headache, Dizziness, Focal Weakness, Gait Changes Physical Exam Vital Signs Reviewed: Yes Vital Signs Temp Pulse Resp BP Pulse Ox 04/06/17 12:51 50 L 21 125/79 97 04/06/17 11:30 97.2 F L 60 18 137/78 99 Blood Pressure: Normal Pulse: Regular Respiratory Rate: Normal Appearance: Positive for: Well-Appearing, Non-Toxic Pain Distress: Moderate Mental Status: Positive for: Alert and Oriented X 3 - Systems Exam Head: Present: Atraumatic, Normocephalic Pupils: Present: PERRL Extroacular Muscles: Present: EOMI Conjunctiva: Present: Normal Mouth: Present: Moist Mucous Membranes Neck: Present: Normal Range of Motion Respiratory/Chest: Present: Clear to Auscultation, Good Air Exchange. No: Respiratory Distress, Accessory Muscle Use Cardiovascular: Present: Regular Rate and Rhythm, Normal S1, S2. No: Murmurs Abdomen: Present: Tenderness (+epigastric and rt. upper quadrant tenderness, no cva tenderness), Normal Bowel Sounds, Other (no lower abdominal tenderness). No : Distention, Peritoneal Signs, Rebound, Guarding Back: Present: Normal Inspection Upper Extremity: Present: Normal Inspection. No: Cyanosis, Edema Lower Extremity: Present: Normal Inspection. No: Edema Neurological: Present: GCS=15, Speech Normal, Motor Func Grossly Intact, Gait Normal, Memory Normal Skin: Present: Warm, Dry, Normal Color. No: Rashes Psychiatric: Present: Alert, Oriented x 3, Normal Insight, Normal Concentration Medical Decision Making ED Course and Treatment: 04/06/17 11:49 -labs/ua -gallbladder sonogram -IVF/pepcid/zofran -observe and reassess 04/06/17 14:04 -Labs are non-significant -UA show no UTI but there is hematuria, no urinary symptoms, no cva tenderness, refused CT abdomen and pelvis. -Sonogram show no acute significant findings. -Pain resolved after the morphine 4mg but stated that she needs a dose of valium prior to discharge because she feels anxious, refused PES evaluation, request to be discharged, will discharge home. -Discharge home with pepcid, zofran, stay hydrated, bed rest, follow up with your own pmd and urologist/GI within 2 days, return to the ER for any new or worsening signs or symptoms. - Lab Interpretations Lab Results: 04/06/17 11:46 04/06/17 11:46 Lab Results 04/06/17 12:00: Urine Color Yellow, Urine Appearance Sl cloudy, Urine pH 8.0, Ur Specific [place] 1.015, Urine Protein Trace H, Urine Glucose (UA) Negative, Urine Ketones Negative, Urine Blood Large H, Urine Nitrate Negative, Urine Bilirubin Negative, Urine Urobilinogen 0.2, Ur Leukocyte Esterase Negative, Urine RBC 5 - 10, Urine WBC 0 - 2, Ur Epithelial Cells 3 - 4, Urine Bacteria Few 04/06/17 11:46: Sodium 135, Potassium 3.9, Chloride 103, Carbon Dioxide 25, Anion Gap 11, BUN 11, Creatinine 0.7, Est GFR ( Amer) > 60, Est GFR (Non- Af Amer) > 60, Random Glucose 102, Calcium 9.2, Total Bilirubin 0.6, AST 34, ALT 37, Alkaline Phosphatase 84, Total Protein 6.8, Albumin 4.0, Globulin 2.8, Albumin/Globulin Ratio 1.4, Lipase 36 04/06/17 11:46: WBC 7.7, RBC 4.15, Hgb 12.4, Hct 36.4, MCV 87.7, MCH 29.9, MCHC 34.1, RDW 12.9, Plt Count 213, MPV 9.9, Gran % 83.5 H, Lymph % (Auto) 11.7 L, Carter % (Auto) 4.3, Eos % (Auto) 0.4 L, Baso % (Auto) 0.1, Gran # 6.42, Lymph # 0.9 L, Carter # 0.3, Eos # 0.0, Baso # 0.01 I have reviewed the lab results: Yes Interpretation: No clinic. lab abnormalty - RAD Interpretation Radiology Orders: 04/06/17 11:45 GALL BLADDER [US] Stat HISTORY: upper abdominal pain COMPARISON: 09/19/2016 CT abdomen and pelvis. TECHNIQUE: Sonographic evaluation of the right upper quadrant of the abdomen. FINDINGS: LIVER: Measures 13.5 cm in length. Hepatopedal blood flow. Fatty infiltration manifest ultrasonographically as increased echogenicity of the liver parenchyma. No mass. No intrahepatic bile duct dilatation. GALLBLADDER: Gallbladder wall thickening. Negative study for gallstones, pericholecystic fluid or sonographic Sanchez's sign. COMMON BILE DUCT: Measures 4.4 mm. No stones. No dilatation. PANCREAS: Obscured by overlying bowel gas. Non diagnostic assessment of the pancreas RIGHT KIDNEY: Measures 4.5 x 11.9 cm in length. Normal echogenicity. No calculus, mass, or hydronephrosis. AORTA: No aneurysmal dilatation. IVC: Unremarkable. OTHER FINDINGS: None . IMPRESSION: No acute findings related to/accounting for the clinical presentation. Limitations of the current examination: Nondiagnostic assessment of the pancreas. Cook Apprentice Pastry: Radiologist - Medication Orders Current Medication Orders: Discontinued Medications Famotidine (Pepcid) 20 mg IVP STAT STA Stop: 04/06/17 11:46 Last Admin: 04/06/17 11:59 Dose: 20 mg Sodium Chloride (Sodium Chloride 0.9%) 1,000 mls @ 999 mls/hr IV .Q1H1M STA Stop: 04/06/17 12:45 Last Admin: 04/06/17 12:00 Dose: 999 mls/hr Morphine Sulfate (Morphine) 4 mg IVP STAT STA Stop: 04/06/17 12:48 Last Admin: 04/06/17 12:53 Dose: 4 mg Ondansetron HCl (Zofran Inj) 4 mg IVP STAT STA Stop: 04/06/17 11:46 Last Admin: 04/06/17 11:59 Dose: 4 mg - PA / PACKAGING DESIGN ENGINEER / Resident Statement MD/DO has reviewed & agrees with the documentation as recorded. Disposition/Present on Arrival - Present on Arrival Any Indicators Present on Arrival: No History of DVT/PE: No History of Uncontrolled Diabetes: No Urinary Catheter: No History of Decub. Ulcer: No History Surgical Site Infection Following: None - Disposition Have Diagnosis and Disposition been Completed?: Yes Diagnosis: Abdominal pain, Nausea and vomiting Disposition: HOME/ ROUTINE Disposition Time: 14:08 Patient Plan: Discharge Condition: IMPROVED Additional Instructions: Discharge home with pepcid, zofran, stay hydrated, bed rest, follow up with your own pmd and urologist/GI within 2 days, return to the ER for any new or worsening signs or symptoms. Prescriptions: Famotidine [Pepcid] 20 mg PO BID #14 tab Ondansetron [Zofran] 4 mg PO Q8H PRN #10 tab PRN Reason: Nausea/Vomiting Referrals: Jose Enrique Stapleton DO [Primary Care Provider] - Follow up with primary Rupa Chester MD [Staff Provider] - Follow up with primary Finn Benites MD [Staff Provider] - Follow up with primary Forms: WORK NOTE
[2017-04-06] MEDS ORDERED: Sodium Chloride 0.9% 1,000 ML IV STA (11:45)
[2017-04-06 12:01] LABS: BASO # 0.01 K/mm3 (0.0-2.0); BASO % 0.1 % (0.0-3.0); EOS % 0.4 % (1.5-5.0); GRAN # 6.42 (1.4-6.5); GRAN % 83.5 % (50.0-68.0); HEMOGLOBIN 12.4 gm/dL (12.0-16.0); LYMPH # 0.9 (1.2-3.4); LYMPH % 11.7 % (22.0-35.0); MEAN CELL VOLUME 87.7 fL (80.0-105.0); MEAN CORPUSCULAR HEMOGLOBIN 29.9 pg (25.0-35.0); MEAN CORPUSCULAR HGB CONC 34.1 g/dl (31.0-37.0); MEAN PLATELET VOLUME 9.9 fl (7.0-11.0); MONO # 0.3 (0.1-0.6); MONO % 4.3 % (1.0-6.0); PLATELET COUNT 213 10^3/uL (120.0-450.0); RBC 4.15 10^6/uL (3.5-6.1); RED CELL DISTRIBUTION WIDTH 12.9 % (11.5-14.5); WHITE BLOOD COUNT 7.7 10^3/ul (4.5-11.0)
[2017-04-06 12:11] LABS: ALB/GLOB RATIO 1.4 (1.1-1.8); ALT/SGPT 37 U/L (7-56); AST/SGOT 34 U/L (15-39); BLOOD UREA NITROGEN 11 mg/dL (7-21); CALCIUM 9.2 mg/dL (8.4-10.5); GFR AFRICAN-AMERICAN > 60; GFR NON-AFRICAN AMERICAN > 60; LIPASE 36 U/L (23-300)
[2017-04-06 12:15] LABS: URINE BILIRUBIN NEGATIVE (NEGATIVE); URINE BLOOD LARGE (NEGATIVE); URINE GLUCOSE (UA) NEGATIVE (NEGATIVE); URINE LEUKOCYTE ESTERASE NEGATIVE Leu/uL (NEGATIVE); URINE NITRATE NEGATIVE (NEGATIVE); URINE PROTEIN TRACE mg/dL (<30 mg/dL); URINE UROBILINOGEN 0.2 E.U./dL (<1 E.U./dL)
[2017-04-06 12:18] LABS: URINE APPEARANCE SL CLOUDY (CLEAR); URINE COLOR YELLOW (YELLOW)
[2017-04-06 12:19] LABS: URINE WBC 0 - 2 /hpf (0-6)
[2017-04-06 12:20] LABS: URINE BACTERIA FEW (NEG)
[2017-04-06] MEDS ORDERED: Morphine 4 mg/ml ISec IVP STA (12:47)
[2017-04-06 12:52] VITALS: BP 125/79; PULSE 50; RESP 21; O2SAT 97
--- NOTE | 2017-04-06 13:31 | US ---
HISTORY: upper abdominal pain COMPARISON: 09/19/2016 CT abdomen and pelvis. TECHNIQUE: Sonographic evaluation of the right upper quadrant of the abdomen. FINDINGS: LIVER: Measures 13.5 cm in length. Hepatopedal blood flow. Fatty infiltration manifest ultrasonographically as increased echogenicity of the liver parenchyma. No mass. No intrahepatic bile duct dilatation. GALLBLADDER: Gallbladder wall thickening. Negative study for gallstones, pericholecystic fluid or sonographic Sanchez's sign. COMMON BILE DUCT: Measures 4.4 mm. No stones. No dilatation. PANCREAS: Obscured by overlying bowel gas. Non diagnostic assessment of the pancreas RIGHT KIDNEY: Measures 4.5 x 11.9 cm in length. Normal echogenicity. No calculus, mass, or hydronephrosis. AORTA: No aneurysmal dilatation. IVC: Unremarkable. OTHER FINDINGS: None . IMPRESSION: No acute findings related to/accounting for the clinical presentation. Limitations of the current examination: Nondiagnostic assessment of the pancreas.
[2017-04-06] MEDS ORDERED: diaZEpam 10 mg/2 ml Inj IVP ONE (14:02)
== END 2017-04-06 14:18 | disposition home or self-care (01) ==
LOC: ED 11:27
DX: R10.9 Unspecified abdominal pain (principal); R11.2 Nausea with vomiting, unspecified
CPT/HCPCS: 76705; 80053; 81001; 83690; 85025; 96374; 96375; 99285; J2270; J2405; J3360; J7040

== ENCOUNTER 2017-04-07 08:04 | Emergency (ER) | payer MEDICAID ==
[2017-04-07 08:05] VITALS: BMI 25.8
[2017-04-07 08:25] VITALS: TEMP 98.6
[2017-04-07] MEDS ORDERED: Sodium Chloride 0.9% 1,000 ML IV STA (08:30)
[2017-04-07] MEDS ORDERED: Morphine 4 mg/ml ISec IVP STA ×2 (08:50→09:51)
--- NOTE | 2017-04-07 08:50 | ED PDOC ---
Arrival/HPI - General Chief Complaint: Abdominal Pain Time Seen by Provider: 04/07/17 08:19 Historian: Patient - History of Present Illness Narrative History of Present Illness (Text): 04/07/17 08:44 36 year old female whose past medical history includes fibromyalgia presents to the emergency department with upper abdominal pain for the past 3 days. She states she was seen in the ER yesterday and had an ultrasound but refused CT scan. Patient returns today with worsening pain. She also reports hematuria. Denies back pain. PMD: Dr. Stapleton Time/Duration: < week Symptom Onset: Sudden Symptom Course: Worsening Context: Home Past Medical History - Provider Review Nursing Documentation Reviewed: Yes - Infectious Disease Hx of Infectious Diseases: None - Tetanus Immunization Tetanus Immunization: Unknown - Cardiac Hx Cardiac Disorders: No - Pulmonary Hx Respiratory Disorders: No - Neurological Hx Neurological Disorder: No - HEENT Hx HEENT Disorder: No - Renal Hx Renal Disorder: No - Endocrine/Metabolic Hx Endocrine Disorders: No - Hematological/Oncological Hx Blood Disorders: No - Integumentary Hx Dermatological Disorder: No - Musculoskeletal/Rheumatological Hx Musculoskeletal Disorders: No Other/Comment: Fibromyalgia x 10 years - Gastrointestinal Hx Gastrointestinal Disorders: No - Genitourinary/Gynecological Hx Genitourinary Disorders: No - Psychiatric Hx Psychophysiologic Disorder: Yes Hx Anxiety: Yes Hx Depression: Yes Hx Substance Use: No - Surgical History Hx Section: Yes (07/13/2012) - Anesthesia Hx Anesthesia: Yes Hx Anesthesia Reactions: No Family/Social History - Physician Review Nursing Documentation Reviewed: Yes Family/Social History: Unknown Family HX Smoking Status: Light Smoker < 10 Cigarettes Daily Hx Alcohol Use: No Hx Substance Use: No Allergies/Home Meds Allergies/Adverse Reactions: Allergies zolpidem tartrate [From Ambien] Allergy (Verified 04/06/17 11:34) SWELLING Home Medications: Home Meds Medication Instructions Recorded Confirmed Carisoprodol [Soma] 650 mg PO BID 09/18/16 04/06/17 oxyCODONE [oxyCODONE Immediate 30 mg PO Q4 09/18/16 04/06/17 Release Tab] Review of Systems - Physician Review All systems were reviewed & negative as marked: Yes - Review of Systems Respiratory: absent: SOB Cardiovascular: absent: Chest Pain Gastrointestinal: Abdominal Pain (Right sided) Genitourinary Female: Hematuria Physical Exam Vital Signs Reviewed: Yes Vital Signs Temp Pulse Resp BP Pulse Ox 04/07/17 12:27 48 L 18 133/79 98 04/07/17 10:00 44 L 18 140/88 100 04/07/17 09:11 42 L 18 136/85 100 04/07/17 08:15 98.6 F 62 16 127/91 H 98 04/07/17 08:05 98 F 48 L 18 133/84 100 Temperature: Afebrile Blood Pressure: Normal Pulse: Regular Respiratory Rate: Normal Appearance: Positive for: Well-Appearing, Non-Toxic, Uncomfortable Pain Distress: Moderate Mental Status: Positive for: Alert and Oriented X 3 - Systems Exam Head: Present: Atraumatic, Normocephalic Pupils: Present: PERRL Extroacular Muscles: Present: EOMI Conjunctiva: Present: Normal Mouth: Present: Moist Mucous Membranes Neck: Present: Normal Range of Motion Respiratory/Chest: Present: Clear to Auscultation, Good Air Exchange. No: Respiratory Distress, Accessory Muscle Use Cardiovascular: Present: Regular Rate and Rhythm, Normal S1, S2. No: Murmurs Abdomen: Present: Normal Bowel Sounds. No: Distention, Peritoneal Signs Back: Present: CVA Tenderness (Right sided), Other (Right flank tenderness) Upper Extremity: Present: Normal Inspection. No: Cyanosis, Edema Lower Extremity: Present: Normal Inspection. No: Edema Neurological: Present: GCS=15, CN II-XII Intact, Speech Normal Skin: Present: Warm, Dry, Normal Color. No: Rashes Psychiatric: Present: Alert, Oriented x 3, Normal Insight, Normal Concentration Medical Decision Making ED Course and Treatment: Impression: 36 year old female whose past medical history includes fibromyalgia presents to the emergency department with upper abdominal pain for the past 3 days. Plan: -- CT Abdomen/Pelvis -- Labs -- Reassess and disposition Prior Visits: Notes and results from previous visits were reviewed. Patient last seen in ED yesterday 04/06/17 for same complaint of abdominal pain and discharged home. Progress Notes: PROCEDURE: CT Abdomen and Pelvis without intravenous contrast Spinning Lathe Operator : Davis Rodriguez MD Report Date : 04/07/2017 12:04:36 IMPRESSION: Moderate amount of fluid in the pelvis and right pericolic gutter, etiology uncertain. Mural thickening in the gallbladder with pericholecystic fluid, possible cholecystitis. No evidence of renal or ureteral stone Leaving Against Medical Advice (AMA): The patient is choosing to leave against medical advice. I have personally explained to the patient that choosing to do so may result in permanent bodily harm or . I have discussed at great length that without further evaluation and monitoring there may be unforeseen circumstances and/or deterioration causing permanent bodily harm or as a result of their choice. The patient is alert, oriented, and shows the mental capacity to make clear decisions regarding the patients health care at this time. The patient continues to wish to leave against medical advice. The patient has been advised that they should return to the emergency room immediately if they change their mind at any time, or if their condition begins to change or worsen in any way. 04/07/17 12:[address] scan findings to patient. Recommended surgical consult and possible admission. Patient wishes to sign out AMA. She states she understands the risks and states she will follow up with PMD Dr. Stapleton. - Lab Interpretations Lab Results: 04/07/17 08:30 04/07/17 09:00 Lab Results 04/07/17 09:00: Sodium 137, Potassium 4.4, Chloride 103, Carbon Dioxide 26, Anion Gap 12, BUN 12, Creatinine 0.7, Est GFR ( Amer) > 60, Est GFR (Non- Af Amer) > 60, Random Glucose 96, Calcium 9.1, Total Bilirubin 0.7, AST 34, ALT 35, Alkaline Phosphatase 85, Total Protein 7.2, Albumin 4.2, Globulin 3.0, Albumin/Globulin Ratio 1.4, Lipase 54 04/07/17 08:40: Urine Color Yellow, Urine Appearance Sl cloudy, Urine pH 6.0, Ur Specific [place] 1.020, Urine Protein Negative, Urine Glucose (UA) Negative, Urine Ketones Negative, Urine Blood Small H, Urine Nitrate Negative, Urine Bilirubin Negative, Urine Urobilinogen 0.2, Ur Leukocyte Esterase Negative, Urine RBC 0 - 2, Urine WBC 0 - 2, Ur Epithelial Cells 0 - 2, Urine Bacteria Few 04/07/17 08:30: WBC 4.9 D, RBC 4.22, Hgb 12.6, Hct 37.3, MCV 88.4, MCH 29.9, MCHC 33.8, RDW 12.9, Plt Count 219, MPV 10.2, Gran % 70.6 H, Lymph % (Auto) 21.6 L, [place] % (Auto) 6.4 H, Eos % (Auto) 1.2 L, Baso % (Auto) 0.2, Gran # 3.42 , Lymph # 1.1 L, [place] # 0.3, Eos # 0.1, Baso # 0.01 - RAD Interpretation Radiology Orders: 04/07/17 08:44 ABD & PELVIS W/O PO OR IV CONT [CT] Stat - Medication Orders Current Medication Orders: Discontinued Medications Cyclobenzaprine HCl (Flexeril) 10 mg PO STAT STA Stop: 04/07/17 10:45 Last Admin: 04/07/17 11:54 Dose: 10 mg Famotidine (Pepcid) 20 mg IVP STAT STA Stop: 04/07/17 08:31 Last Admin: 04/07/17 08:59 Dose: 20 mg Sodium Chloride (Sodium Chloride 0.9%) 1,000 mls @ 1,000 mls/hr IV .Q1H STA Stop: 04/07/17 09:29 Last Admin: 04/07/17 08:58 Dose: 1,000 mls/hr Ketorolac Tromethamine (Toradol) 30 mg IVP STAT STA Stop: 04/07/17 08:51 Last Admin: 04/07/17 08:59 Dose: 30 mg Re-Assess: [facility] Pain Assessment Document 04/07/17 09:59 SRE (Rec: 04/07/17 10:52 SRE [id number]) Pain Reassessment Is this a pain reassessment? Yes Sleep Is patient sleeping during reassessment? No Presence of Pain Presence of Pain Yes Pain Scale Used Pain Scale Used Numeric Location Pain Location Body Site Abdomen Description Description Intermittent Morphine Sulfate (Morphine) 4 mg IVP STAT STA Stop: 04/07/17 08:51 Last Admin: 04/07/17 08:59 Dose: 4 mg Re-Assess: [facility] Pain Assessment Document 04/07/17 09:59 SRE (Rec: 04/07/17 10:52 SRE [id number]) Pain Reassessment Is this a pain reassessment? Yes Sleep Is patient sleeping during reassessment? No Presence of Pain Presence of Pain Yes Pain Scale Used Pain Scale Used Numeric Location Pain Location Body Site Abdomen Description Description Intermittent Morphine Sulfate (Morphine) 4 mg IVP STAT STA Stop: 04/07/17 09:52 Last Admin: 04/07/17 09:59 Dose: 4 mg Re-Assess: [facility] Pain Assessment Document 04/07/17 10:59 SRE (Rec: 04/07/17 11:11 SRE [id number]) Pain Reassessment Is this a pain reassessment? Yes Sleep Is patient sleeping during reassessment? No Presence of Pain Presence of Pain No Ondansetron HCl (Zofran Inj) 4 mg IVP STAT STA Stop: 04/07/17 08:31 Last Admin: 04/07/17 08:58 Dose: 4 mg - Scribe Statement The provider has reviewed the documentation as recorded by the Osmar Henson Provider Scribe Attestation: All medical record entries made by the Scribe were at my direction and personally dictated by me. I have reviewed the chart and agree that the record accurately reflects my personal performance of the history, physical exam, medical decision making, and the department course for this patient. I have also personally directed, reviewed, and agree with the discharge instructions and disposition. Disposition/Present on Arrival - Present on Arrival Any Indicators Present on Arrival: No History of DVT/PE: No History of Uncontrolled Diabetes: No Urinary Catheter: No History of Decub. Ulcer: No History Surgical Site Infection Following: None - Disposition Have Diagnosis and Disposition been Completed?: Yes Diagnosis: Flank pain Disposition: AGAINST MEDICAL ADVICE Disposition Time: 12:20 Condition: UNKNOWN Discharge Instructions (ExitCare): Acute Abdominal Pain (ED) Additional Instructions: Thank you for letting us take care of you today. Your provider was Dr. Diggs. You were treated for abdominal and flank pain. The emergency medical care you received today was directed at your acute symptoms. If you were prescribed any medication, please fill it and take as directed. It may take several days for your symptoms to resolve. Return to the Emergency Department if your symptoms worsen, do not improve, or if you have any other problems. Please contact your doctor or call one of the physicians/clinics you have been referred to that are listed on the Patient Visit Information form that is included in your discharge packet. Bring any paperwork you were given at discharge with you along with any medications you are taking to your follow up visit. Our treatment cannot replace ongoing medical care by a primary care provider (PCP) outside of the emergency department. Thank you for allowing the [facility] team to be part of your care today. Follow up with Dr. Stapleton as soon as possible. Return to the emergency room if you have any concerns. Prescriptions: Ciprofloxacin [Cipro] 500 mg PO BID #20 tab Referrals: Jose Enrique Stapleton, [Staff Provider] - Follow up with primary PCP,NO [Primary Care Provider] - Follow up with primary
[2017-04-07 09:12] VITALS: RESP 18
[2017-04-07 09:13] LABS: BASO # 0.01 K/mm3 (0.0-2.0); BASO % 0.2 % (0.0-3.0); EOS # 0.1 (0.0-0.7); EOS % 1.2 % (1.5-5.0); GRAN # 3.42 (1.4-6.5); GRAN % 70.6 % (50.0-68.0); HEMOGLOBIN 12.6 gm/dL (12.0-16.0); LYMPH # 1.1 (1.2-3.4); LYMPH % 21.6 % (22.0-35.0); MEAN CELL VOLUME 88.4 fL (80.0-105.0); MEAN CORPUSCULAR HEMOGLOBIN 29.9 pg (25.0-35.0); MEAN CORPUSCULAR HGB CONC 33.8 g/dl (31.0-37.0); MEAN PLATELET VOLUME 10.2 fl (7.0-11.0); MONO # 0.3 (0.1-0.6); MONO % 6.4 % (1.0-6.0); PLATELET COUNT 219 10^3/uL (120.0-450.0); RBC 4.22 10^6/uL (3.5-6.1); RED CELL DISTRIBUTION WIDTH 12.9 % (11.5-14.5); WHITE BLOOD COUNT 4.9 10^3/ul (4.5-11.0)
[2017-04-07 09:13] LABS: URINE BILIRUBIN NEGATIVE (NEGATIVE); URINE BLOOD SMALL (NEGATIVE); URINE GLUCOSE (UA) NEGATIVE (NEGATIVE); URINE LEUKOCYTE ESTERASE NEGATIVE Leu/uL (NEGATIVE); URINE NITRATE NEGATIVE (NEGATIVE); URINE PROTEIN NEGATIVE mg/dL (<30 mg/dL); URINE UROBILINOGEN 0.2 E.U./dL (<1 E.U./dL)
[2017-04-07 09:23] LABS: URINE APPEARANCE SL CLOUDY (CLEAR); URINE COLOR YELLOW (YELLOW); URINE EPITHELIAL CELLS 0 - 2 /hpf (0-5); URINE RBC 0 - 2 /hpf (0-2); URINE WBC 0 - 2 /hpf (0-6)
[2017-04-07 09:24] LABS: ALB/GLOB RATIO 1.4 (1.1-1.8); ALBUMIN 4.2 g/dL (3.0-4.8); ALT/SGPT 35 U/L (7-56); AST/SGOT 34 U/L (15-39); BLOOD UREA NITROGEN 12 mg/dL (7-21); CALCIUM 9.1 mg/dL (8.4-10.5); GFR AFRICAN-AMERICAN > 60; GFR NON-AFRICAN AMERICAN > 60; LIPASE 54 U/L (23-300)
[2017-04-07 09:24] LABS: URINE BACTERIA FEW (NEG)
--- NOTE | 2017-04-07 12:06 | CT ---
PROCEDURE: CT Abdomen and Pelvis without intravenous contrast HISTORY: right flank pain with reported hematuria COMPARISON: Gallbladder ultrasound 04/06/2017 TECHNIQUE: Without contrast. Contrast Dose: Radiation dose: Total exam DLP = 875 mGy-cm. This CT exam was performed using one or more of the following dose reduction techniques: Automated exposure control, adjustment of the mA and/or kV according to patient size, and/or use of iterative reconstruction technique. FINDINGS: LOWER THORAX: Unremarkable. LIVER: Unremarkable. No gross lesion or ductal dilatation. GALLBLADDER AND BILE DUCTS: There is some mural thickening in the gallbladder with some pericholecystic fluid and inflammatory changes suspicious for cholecystitis. The earlier ultrasound showed wall thickening without stones. PANCREAS: Unremarkable. No gross lesion or ductal dilatation. SPLEEN: Unremarkable. ADRENALS: Unremarkable. No mass. KIDNEYS AND URETERS: Unremarkable. No hydronephrosis. No solid mass. VASCULATURE: Unremarkable. No aortic aneurysm. BOWEL: Unremarkable. No obstruction. No gross mural thickening. APPENDIX: Unremarkable. Normal appendix. PERITONEUM: There is a moderate amount of free fluid in the pelvis. This extends into the right pericolic gutter. This amount of fluid is greater than expected for an ovarian cyst rupture. Clinical correlation is suggested LYMPH NODES: Unremarkable. No enlarged lymph nodes. BLADDER: Unremarkable. REPRODUCTIVE: Unremarkable. BONES: No acute fracture. OTHER FINDINGS: None. IMPRESSION: Moderate amount of fluid in the pelvis and right pericolic gutter, etiology uncertain. Mural thickening in the gallbladder with pericholecystic fluid, possible cholecystitis. No evidence of renal or ureteral stone
[2017-04-07 12:28] VITALS: BP 133/79; PULSE 48; O2SAT 98
== END 2017-04-07 12:30 | disposition left against medical advice (07) ==
LOC: ED 08:04
DX: R10.9 Unspecified abdominal pain (principal); M79.7 Fibromyalgia
CPT/HCPCS: 74176; 80053; 81001; 83690; 85025; 87086; 96361; 96374; 96375; 96376; 99285; J1885; J2270; J2405; J7040

== ENCOUNTER 2017-04-19 05:27 | Observation (INO) | payer MEDICAID ==
[2017-04-19] MEDS ORDERED: Sodium Chloride 0.9% 1,000 ML IV STA (05:38)
[2017-04-19] MEDS ORDERED: Famotidine 20mg/50ml 20 MG/50 ML BAG IV STA (05:38)
--- NOTE | 2017-04-19 05:48 | ED PDOC ---
Arrival/HPI - General Chief Complaint: Abdominal Pain Time Seen by Provider: 04/19/17 05:29 Historian: Patient - History of Present Illness Narrative History of Present Illness (Text): 04/19/17 05:48 A 36 year old female, whose past medical history includes fibromyalgia, was brought in by EMS complaining of right upper quadrant abdominal pain for the past two weeks. Patient reports pain is worse with food and a lack of appetite. Denies any other complaints at this time. Symptom Onset: Sudden Symptom Course: Unchanged Activities at Onset: Rest Context: Home Past Medical History - Provider Review Nursing Documentation Reviewed: Yes - Infectious Disease Hx of Infectious Diseases: None - Tetanus Immunization Tetanus Immunization: Unknown - Cardiac Hx Cardiac Disorders: No - Pulmonary Hx Respiratory Disorders: No - Neurological Hx Neurological Disorder: No - HEENT Hx HEENT Disorder: No - Renal Hx Renal Disorder: No - Endocrine/Metabolic Hx Endocrine Disorders: No - Hematological/Oncological Hx Blood Disorders: No - Integumentary Hx Dermatological Disorder: No - Musculoskeletal/Rheumatological Other/Comment: Fibromyalgia x 10 years - Gastrointestinal Hx Gastrointestinal Disorders: No - Genitourinary/Gynecological Hx Genitourinary Disorders: No - Psychiatric Hx Psychophysiologic Disorder: Yes Hx Anxiety: Yes Hx Depression: Yes Hx Substance Use: No - Surgical History Hx Section: Yes (07/13/2012) - Anesthesia Hx Anesthesia: Yes Hx Anesthesia Reactions: No Family/Social History - Physician Review Nursing Documentation Reviewed: Yes Family/Social History: No Known Family HX Smoking Status: Light Smoker < 10 Cigarettes Daily Hx Alcohol Use: No Hx Substance Use: No Allergies/Home Meds Allergies/Adverse Reactions: Allergies zolpidem tartrate [From Ambien] Allergy (Verified 04/06/17 11:34) SWELLING Home Medications: Home Meds Medication Instructions Recorded Confirmed oxyCODONE [oxyCODONE Immediate 5 mg PO Q4 09/18/16 04/22/17 Release Tab] Fluoxetine HCl [Prozac] 80 mg PO DAILY 04/22/17 04/22/17 traZODone [Desyrel] 200 mg PO HS 04/22/17 04/22/17 Review of Systems - Physician Review All systems were reviewed & negative as marked: Yes Physical Exam - Physical Exam Narrative Physical Exam (Text): 04/19/17 05:46- Review of Systems Constitutional: Normal. absent: Fatigue, Weight Change, Fevers Eyes: Normal ENT: Normal Respiratory: Normal absent: SOB, Cough, Sputum Cardiovascular: Normal absent: Chest pain, Palpitations, Syncope Gastrointestinal: abdominal pain (RUQ) absent: Diarrhea, Nausea Genitourinary: Normal. absent: Dysuria, Frequency, Hematuria Musculoskeletal: Normal. absent: Arthralgias, Back Pain, Neck Pain Skin: Normal Neurological: Normal absent: Focal Weakness Endocrine: Normal Hemo/Lymphatic: Normal Psychiatric: Normal - Physical exam Patient appears age appropriate, speaking full sentences without difficulty - Systems Exam Head: Present: Atraumatic, Normocephalic Pupils: Present: PERRL Extraocular Muscles: Present: EOMI Conjunctiva: Present: Normal Mouth: Present: Moist Mucous Membranes Neck: Present: Normal Range of Motion. No: MIDLINE TENDERNESS, Paraspinal Tenderness Respiratory/Chest: Present: Clear to Auscultation, Good Air Exchange. No: Respiratory Distress, Accessory Muscle Use, Tachypnic Cardiovascular: Present: Regular Rate and Rhythm, Normal S1, S2, Peripheral Pulses Present. No: Murmurs Abdomen: Present: RUQ Tenderness to palpation, Normal Bowel Sounds No: Peritoneal Signs, Rebound, Guarding, Distention Back: Present: Normal Inspection. No: Midline Tenderness, Paraspinal Tenderness Upper Extremity: Present: Normal Inspection. No: Cyanosis, Edema Lower Extremity: Present: Normal Inspection. No: Edema Neurological: Present: GCS=15, Speech Normal, cranial nerves II through XII fully intact with no cerebellar abnormality, neuro-sensory fully intact. No focal neurological deficits. Skin: Present: Warm, Dry, Normal Color. No: Rashes Lymphatic: Present: OX3, NI, NC Psychiatric: Present: Alert, Oriented x 3, Normal Insight, Normal Concentration Vital Signs Reviewed: Yes Vital Signs Temp Pulse Resp BP Pulse Ox 04/19/17 08:02 94 H 16 114/71 99 04/19/17 05:39 98.3 F 89 17 135/69 100 Temperature: Afebrile Blood Pressure: Normal Pulse: Regular Respiratory Rate: Normal Appearance: Positive for: Well-Appearing, Non-Toxic, Comfortable Pain Distress: None Mental Status: Positive for: Alert and Oriented X 3 Medical Decision Making ED Course and Treatment: 04/19/17 05:44 Impression: A 36 year old female with right upper quadrant abdominal pain. Patient has tenderness to palpation of right upper quadrant. Differential Diagnosis included but are not limited to: nonspecific abdominal pain vs. gallbladder disease Plan: -- labs -- Urinalysis -- Pepcid, IV fluids, Toradol, Zofran -- Reassess and disposition Prior Visits: Notes and results from previous visits were reviewed. Patient was last reported to the emergency department on 04/07/17 for evaluation of abdominal pain. CT abdomen showed fluid in pelvis, gallbladder thickening with pericholecystic fluid, possible cholecystitis. Patient left emergency department against medical advice. CT Abdomen and Pelvis without intravenous contrast 04/07/17 12:07 Creator : Davis Rodriguez MD IMPRESSION: Moderate amount of fluid in the pelvis and right pericolic gutter, etiology uncertain. Mural thickening in the gallbladder with pericholecystic fluid, possible cholecystitis. No evidence of renal or ureteral stone Progress Notes: 04/19/17 06:[address] Stapleton, plan to obs on med/surg floor for further w/u with Dr. Cast on consult pt aware of and agrees with plan 04/19/17 06:29 dw surgical device sales representative, aware of pt - Lab Interpretations Lab Results: 04/19/17 05:45 04/19/17 05:45 Lab Results 04/19/17 05:48: Urine Color Yellow, Urine Appearance Clear, Urine pH 6.5, Ur Specific [place] 1.010, Urine Protein Negative, Urine Glucose (UA) Negative, Urine Ketones Negative, Urine Blood Negative, Urine Nitrate Negative, Urine Bilirubin Negative, Urine Urobilinogen 0.2, Ur Leukocyte Esterase Negative 04/19/17 05:45: Sodium 141, Potassium 3.9, Chloride 105, Carbon Dioxide 27, Anion Gap 13, BUN 3 L, Creatinine 0.6, Est GFR ( Amer) > 60, Est GFR (Non -Af Amer) > 60, Random Glucose 95, Calcium 8.6, Total Bilirubin 0.3, AST 22, ALT 27, Alkaline Phosphatase 95, Total Protein 7.5, Albumin 4.1, Globulin 3.4, Albumin/Globulin Ratio 1.2, Lipase 68 04/19/17 05:45: PT 9.9, INR 0.92 L, APTT 28.9 04/19/17 05:45: WBC 7.0 D, RBC 4.29, Hgb 13.1, Hct 37.5, MCV 87.4, MCH 30.5, MCHC 34.9, RDW 12.7, Plt Count 247, MPV 10.1, Gran % 68.5 H, Lymph % (Auto) 22.5 , [place] % (Auto) 6.3 H, Eos % (Auto) 2.6, Baso % (Auto) 0.1, Gran # 4.77, Lymph # 1.6, [place] # 0.4, Eos # 0.2, Baso # 0.01 I have reviewed the lab results: Yes - Medication Orders Current Medication Orders: Discontinued Medications Acetaminophen (Tylenol 325mg Tab) 650 mg PO Q4H PRN PRN Reason: Headache Last Admin: 04/21/17 08:05 Dose: 650 mg Cyclobenzaprine HCl (Flexeril) 5 mg PO Q8 PRN PRN Reason: Muscle spasm Last Admin: 04/21/17 08:05 Dose: 5 mg Famotidine (Pepcid) 20 mg IVP DAILY ON LICENSE OF [facility] Last Admin: 04/20/17 08:59 Dose: 20 mg Famotidine (Pepcid) 20 mg PO DAILY ON LICENSE OF [facility] Last Admin: 04/21/17 11:12 Dose: 20 mg Fluoxetine HCl (Prozac) 40 mg PO DAILY ON LICENSE OF [facility] Last Admin: 04/21/17 11:12 Dose: 40 mg Comments: pt nreturned fron EGD Gabapentin (Neurontin) 400 mg PO QID ON LICENSE OF [facility] PRN Reason: Protocol Last Admin: 04/21/17 14:03 Dose: 400 mg Glycopyrrolate (Robinul) Confirm Administered Dose 0.2 mg .ROUTE .STK-MED ONE Stop: 04/21/17 09:35 Hydroxyzine Pamoate (Vistaril) 50 mg PO Q8 PRN; Protocol PRN Reason: Anxiety Famotidine (Pepcid 20mg/50ml Premix) 20 mg in 50 mls @ 100 mls/hr IV STAT STA Stop: 04/19/17 06:07 Last Admin: 04/19/17 05:54 Dose: 100 mls/hr Sodium Chloride (Sodium Chloride 0.9%) 1,000 mls @ 1,000 mls/hr IV .Q1H STA Stop: 04/19/17 06:37 Last Admin: 04/19/17 05:54 Dose: 1,000 mls/hr Sodium Chloride (Sodium Chloride 0.9%) 1,000 mls @ 100 mls/hr IV .Q10H ON LICENSE OF [facility] Last Admin: 04/21/17 11:13 Dose: 100 mls/hr Sodium Chloride (Sodium Chloride 0.9%) 1,000 mls @ 100 mls/hr IV .Q10H ON LICENSE OF [facility] Last Admin: 04/21/17 11:14 Dose: Ketorolac Tromethamine (Toradol) 15 mg IVP STAT STA Stop: 04/19/17 05:39 Last Admin: 04/19/17 05:58 Dose: 15 mg Re-Assess: [facility] Pain Assessment Document 04/19/17 06:58 RV (Rec: 04/19/17 12:22 RV [place] [id number]) Pain Reassessment Is this a pain reassessment? Yes Presence of Pain Presence of Pain Yes Pain Scale Used Pain Scale Used Numeric Location Left, Right or Bilateral Bilateral Pain Location Body Site Abdomen Leg Description Description Constant Intensity of Pain at present 10 Pain Behavior Moaning Irritability Withdrawal from Touch Facial Grimacing Aggravating Factors ADL's Changing Position Standing Sitting Alleviating Factors/Management Medication Techniques Alleviating Factors Medication Ketorolac Tromethamine (Toradol) 30 mg IVP Q6H PRN PRN Reason: Pain, moderate (4-7) Last Admin: 04/19/17 10:22 Dose: 30 mg Re-Assess: [facility] Pain Assessment Document 04/19/17 11:22 RV (Rec: 04/19/17 12:22 RV [place] [id number]) Pain Reassessment Is this a pain reassessment? Yes Presence of Pain Presence of Pain Yes Pain Scale Used Pain Scale Used Numeric Location Left, Right or Bilateral Bilateral Pain Location Body Site Abdomen Leg Description Description Constant Intensity of Pain at present 10 Pain Behavior Moaning Guarding Irritability Facial Grimacing Aggravating Factors ADL's Changing Position Standing Sitting Alleviating Factors/Management Medication Techniques Alleviating Factors Medication Pain not relieved and LIP/MD was Yes notified Morphine Sulfate (Morphine) 4 mg IVP STAT STA Stop: 04/19/17 06:29 Last Admin: 04/19/17 06:35 Dose: 4 mg Re-Assess: [facility] Pain Assessment Document 04/19/17 07:35 RV (Rec: 04/19/17 12:21 RV [id number]) Pain Reassessment Is this a pain reassessment? Yes Presence of Pain Presence of Pain Yes Pain Scale Used Pain Scale Used Numeric Location Left, Right or Bilateral Bilateral Pain Location Body Site Abdomen Leg Description Description Constant Intensity of Pain at present 8 Pain Behavior Withdrawal from Touch Facial Grimacing Aggravating Factors ADL's Changing Position Alleviating Factors/Management Medication Techniques Alleviating Factors Medication Morphine Sulfate (Morphine) 1 mg IVP Q3H PRN PRN Reason: Pain, severe (8-10) Last Admin: 04/19/17 12:20 Dose: 1 mg Re-Assess: [facility] Pain Assessment Document 04/19/17 13:20 RV (Rec: 04/19/17 14:12 RV [id number]) Pain Reassessment Is this a pain reassessment? Yes Sleep Is patient sleeping during reassessment? 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 Description Description Constant Intensity of Pain at present 7 Pain Behavior Moaning Irritability Rubbing Site Facial Grimacing Aggravating Factors ADL's Alleviating Factors/Management Medication Techniques Alleviating Factors Medication Morphine Sulfate (Morphine) 2 mg IVP Q3H PRN PRN Reason: Pain, severe (8-10) Last Admin: 04/21/17 14:03 Dose: 2 mg Nicotine (Nicoderm Cq) 1 patch TD DAILY ON LICENSE OF [facility] Last Admin: 04/21/17 11:13 Dose: 1 patch Carisoprodol [Soma] (650 Mg (Home Med)) 650 mg PO BID ON LICENSE OF [facility] Last Admin: 04/21/17 11:14 Dose: Ondansetron HCl (Zofran Inj) 4 mg IVP STAT STA Stop: 04/19/17 05:39 Last Admin: 04/19/17 05:54 Dose: 4 mg Ondansetron HCl (Zofran Tab) 4 mg PO Q8H PRN PRN Reason: Nausea/Vomiting Ondansetron HCl (Zofran Inj) 4 mg IVP Q6H PRN PRN Reason: Nausea/Vomiting Last Admin: 04/20/17 15:55 Dose: 4 mg Propofol (Diprivan) Confirm Administered Dose 200 mg .ROUTE .STK-MED ONE Stop: 04/21/17 09:35 Propofol (Diprivan) Confirm Administered Dose 200 mg .ROUTE .STK-MED ONE Stop: 04/21/17 09:46 Trazodone HCl (Desyrel) 100 mg PO [facility] Last Admin: 04/20/17 21:21 Dose: 100 mg - Scribe Statement The provider has reviewed the documentation as recorded by the Osmar Hobson Provider Osmar Attestation: All medical record entries made by the Juanitoibsudheer were at my direction and personally dictated by me. I have reviewed the chart and agree that the record accurately reflects my personal performance of the history, physical exam, medical decision making, and the department course for this patient. I have also personally directed, reviewed, and agree with the discharge instructions and disposition. Disposition/Present on Arrival - Present on Arrival Any Indicators Present on Arrival: No History of DVT/PE: No History of Uncontrolled Diabetes: No Urinary Catheter: No History of Decub. Ulcer: No History Surgical Site Infection Following: None - Disposition Have Diagnosis and Disposition been Completed?: Yes Diagnosis: Abdominal pain Disposition: HOSPITALIZED Disposition Time: 06:26 Patient Plan: Observation Condition: FAIR
[2017-04-19 05:59] LABS: BASO # 0.01 K/mm3 (0.0-2.0); BASO % 0.1 % (0.0-3.0); EOS # 0.2 (0.0-0.7); EOS % 2.6 % (1.5-5.0); GRAN # 4.77 (1.4-6.5); GRAN % 68.5 % (50.0-68.0); HEMOGLOBIN 13.1 gm/dL (12.0-16.0); LYMPH # 1.6 (1.2-3.4); LYMPH % 22.5 % (22.0-35.0); MEAN CELL VOLUME 87.4 fL (80.0-105.0); MEAN CORPUSCULAR HEMOGLOBIN 30.5 pg (25.0-35.0); MEAN CORPUSCULAR HGB CONC 34.9 g/dl (31.0-37.0); MEAN PLATELET VOLUME 10.1 fl (7.0-11.0); MONO # 0.4 (0.1-0.6); MONO % 6.3 % (1.0-6.0); PLATELET COUNT 247 10^3/uL (120.0-450.0); RBC 4.29 10^6/uL (3.5-6.1); RED CELL DISTRIBUTION WIDTH 12.7 % (11.5-14.5)
[2017-04-19 06:08] LABS: INR 0.92 (0.93-1.08); PARTIAL THROMBOPLASTIN TIME 28.9 Seconds (23.7-30.8); PROTHROMBIN TIME 9.9 Seconds (9.9-11.8)
[2017-04-19 06:09] LABS: ALB/GLOB RATIO 1.2 (1.1-1.8); ALBUMIN 4.1 g/dL (3.0-4.8); ALT/SGPT 27 U/L (7-56); AST/SGOT 22 U/L (15-39); BLOOD UREA NITROGEN 3 mg/dL (7-21); CALCIUM 8.6 mg/dL (8.4-10.5); GFR AFRICAN-AMERICAN > 60; GFR NON-AFRICAN AMERICAN > 60; LIPASE 68 U/L (23-300)
[2017-04-19 06:23] LABS: PH,URINE 6.5 (4.7-8.0); URINE BILIRUBIN NEGATIVE (NEGATIVE); URINE BLOOD NEGATIVE (NEGATIVE); URINE GLUCOSE (UA) NEGATIVE (NEGATIVE); URINE LEUKOCYTE ESTERASE NEGATIVE Leu/uL (NEGATIVE); URINE NITRATE NEGATIVE (NEGATIVE); URINE PROTEIN NEGATIVE mg/dL (<30 mg/dL); URINE UROBILINOGEN 0.2 E.U./dL (<1 E.U./dL)
[2017-04-19] MEDS ORDERED: Morphine 4 mg/ml ISec IVP STA (06:28)
[2017-04-19 06:37] LABS: URINE APPEARANCE CLEAR (CLEAR); URINE COLOR YELLOW (YELLOW)
[2017-04-19] MEDS: Sodium Chloride 0.9% 1,000 ML IV SCH ×2 (07:14→17:35)
--- NOTE | 2017-04-19 09:01 | CP.PCM.CON ---
History of Present Illness - History of Present Illness History of Present Illness: General Surgery Consult Resident: Kenn Attending: Segun HPI: We are being consulted on a 36 y/o WF with RUQ pain for 2 weeks duration. She presented to the ER 10 days ago with RUQ pain and got a US that was negative. She left AMA at that time. She came back to the ER the next day with similar sx and got a CT that showed a thickend gallbladder wall and pericholysytic fluid. She again left AMA. She no presents complaing of RUQ pain that is unremitting. it is associated with daily N/V/D. Rates the pain as a 7/10. It radiates it her back. Nothing makes the pain better or worse. She denies any blood in her stool or vomitus. she has no appetite. Complains of painful urination and states the color of her urine has become darker recently. +chills/+SOB. -Fever/CP. PMH: fibromyalgia, depression, anxiety, gout PSH: , b/l hernia repair Meds: prozac, buspirone, gabapentin, oxycodone, colchicine Allergies: NKA Review of Systems - Review of Systems Review of Systems: negative except for HPI Past Patient History - Infectious Disease Hx of Infectious Diseases: None - Tetanus Immunizations Tetanus Immunization: Unknown - Past Social History Smoking Status: Light Smoker < 10 Cigarettes Daily - CARDIAC Hx Cardiac Disorders: No - PULMONARY Hx Respiratory Disorders: No - NEUROLOGICAL Hx Neurological Disorder: No - HEENT Hx HEENT Problems: No - RENAL Hx Chronic Kidney Disease: No - ENDOCRINE/METABOLIC Hx Endocrine Disorders: No - HEMATOLOGICAL/ONCOLOGICAL Hx Blood Disorders: No - INTEGUMENTARY Hx Dermatological Problems: No - MUSCULOSKELETAL/RHEUMATOLOGICAL Other/Comment: Fibromyalgia x 10 years - GASTROINTESTINAL Hx Gastrointestinal Disorders: No - GENITOURINARY/GYNECOLOGICAL Hx Genitourinary Disorders: No - PSYCHIATRIC Hx Psychophysiologic Disorder: Yes Hx Anxiety: Yes Hx Depression: Yes Hx Substance Use: No - SURGICAL HISTORY Hx Section: Yes (07/13/2012) - ANESTHESIA Hx Anesthesia: Yes Hx Anesthesia Reactions: No Meds Allergies/Adverse Reactions: Allergies Allergy/AdvReac Type Severity Reaction Status Date / Time zolpidem tartrate Allergy SWELLING Verified 04/06/17 11:34 [From Ambien] - Medications Medications: Current Medications Sodium Chloride (Sodium Chloride 0.9%) 1,000 mls @ 100 mls/hr IV .Q10H [facility] Last Admin: 04/19/17 07:14 Dose: 100 mls/hr Physical Exam - Constitutional Appears: Well, Non-toxic - Head Exam Head Exam: NORMAL INSPECTION - Eye Exam Eye Exam: EOMI, Normal appearance - ENT Exam ENT Exam: Mucous Membranes Moist - Neck Exam Neck exam: Positive for: Normal Inspection - Respiratory Exam Respiratory Exam: Clear to Auscultation Bilateral, NORMAL BREATHING PATTERN - Cardiovascular Exam Cardiovascular Exam: REGULAR RHYTHM - GI/Abdominal Exam GI & Abdominal Exam: Soft, Tenderness (RLQ/LLQ). absent: Distended, Firm, Guarding Results - Vital Signs Recent Vital Signs: Last Vital Signs Temp 98.3 F 04/19/17 05:39 Pulse 94 H 04/19/17 08:02 Resp 16 04/19/17 08:02 BP 114/71 04/19/17 08:02 Pulse Ox 99 04/19/17 08:02 - Labs Result Diagrams: 04/19/17 05:45 04/19/17 05:45 Assessment & Plan - Assessment and Plan (Free Text) Assessment: 36 y/o WF w/ RUQ pain * US * HIDA * IV antibiotics * OR friday * Pain Control Jefferson Hawk PGY-1 - Date & Time Date: 04/19/17 Time: 10:31
[2017-04-19] MEDS: CARISOPRODOL PO SCH (10:23)
--- NOTE | 2017-04-19 11:32 | US ---
HISTORY: RUQ pain COMPARISON: Comparison made with the prior abdominal ultrasound dated 04/06/2017. The comparison also made with CT scan of the abdomen and pelvis 04/07/2017 TECHNIQUE: Sonographic evaluation of the abdomen. FINDINGS: LIVER: Liver is enlarged measuring approximately 19 cm in CC dimension similar to measurements obtained on prior CT scan abdomen and pelvis. Liver demonstrates relatively normal echotexture without obvious mass collection or echogenic shadowing calculi. No evidence of abdominal ascites GALLBLADDER: Gallbladder is incompletely distended which presumably accounts for the prominent questionable minimally edematous appearing wallappearance. . No evidence of intraluminal gallbladder calculi, pericholecystic fluid collections or sonographic Sanchez sign. COMMON BILE DUCT: Measures approximately 5.0 cm. No intraluminal -ductal calculi seen. PANCREAS: Pancreas is not visualized on this exam due to body habitus and bowel gas. . RIGHT KIDNEY: Measures approximately 11.1 x 4.3 x 4.1cm. Normal echogenicity. No calculus, mass, or hydronephrosis. LEFT KIDNEY: Measures approximately 11.1 x 5.2 x 5.3cm. Normal echogenicity. No calculus, mass, or hydronephrosis. SPLEEN: Spleen appears mildly enlarged measuring 13.1 cm. No splenic mass collection or calcification identified. . AORTA: No aneurysmal dilatation. IVC: Unremarkable. OTHER FINDINGS: None. IMPRESSION: Hepatosplenomegaly. Gallbladder is incompletely distended which may account for slight prominent questionably edematous appearing wall. . No evidence of cholelithiasis.
[2017-04-19] MEDS ORDERED: Morphine 2 mg/ml ISec IVP PRN (12:09)
[2017-04-19] MEDS: Morphine 2 mg/ml ISec IVP PRN ×4 (14:47→23:37)
[2017-04-20] MEDS: Sodium Chloride 0.9% 1,000 ML IV SCH ×2 (03:21→15:06)
[2017-04-20] MEDS: Morphine 2 mg/ml ISec IVP PRN ×6 (03:21→21:21)
[2017-04-20 08:02] LABS: ALBUMIN 2.9 g/dL (3.0-4.8); ALT/SGPT 22 U/L (7-56); AST/SGOT 16 U/L (15-39); BLOOD UREA NITROGEN 5 mg/dL (7-21); CALCIUM 8.4 mg/dL (8.4-10.5); GFR AFRICAN-AMERICAN > 60; GFR NON-AFRICAN AMERICAN > 60; MEAN CELL VOLUME 88.8 fL (80.0-105.0); MEAN CORPUSCULAR HEMOGLOBIN 28.9 pg (25.0-35.0); MEAN CORPUSCULAR HGB CONC 32.5 g/dl (31.0-37.0); MEAN PLATELET VOLUME 10.9 fl (7.0-11.0); RBC 3.74 10^6/uL (3.5-6.1); RED CELL DISTRIBUTION WIDTH 12.9 % (11.5-14.5); WHITE BLOOD COUNT 4.4 10^3/ul (4.5-11.0)
[2017-04-20 08:09] LABS: HEMOGLOBIN 10.8 gm/dL (12.0-16.0)
--- NOTE | 2017-04-20 08:18 | CP.PCM.PN ---
Subjective - Date & Time of Evaluation Date of Evaluation: 04/20/17 Time of Evaluation: 08:14 - Subjective Subjective: General Surgery Progress Note: Resident: Kenn Attending: Segun HPI: Pt seen and examined at bedside. Doing well, no complaints at this time. Denies pain. +flatus/+BM. -N/V/D/CP/SOB. Objective - Vital Signs/Intake and Output Vital Signs (last 24 hours): Temp Pulse Resp BP Pulse Ox 98 F 52 L 20 122/77 96 04/20/17 07:34 04/20/17 07:34 04/20/17 07:34 04/20/17 07:34 04/20/17 07:34 Intake and Output: 04/20/17 04/20/17 06:59 18:59 Intake Total 2400 0 Balance 2400 0 - Medications Medications: Current Medications Acetaminophen (Tylenol 325mg Tab) 650 mg PO Q4H PRN PRN Reason: Headache Last Admin: 04/19/17 14:46 Dose: 650 mg Cyclobenzaprine HCl (Flexeril) 5 mg PO Q8 PRN PRN Reason: Muscle spasm Last Admin: 04/19/17 19:51 Dose: 5 mg Famotidine (Pepcid) 20 mg IVP DAILY [facility] Last Admin: 04/19/17 10:21 Dose: 20 mg Fluoxetine HCl (Prozac) 40 mg PO DAILY [facility] Last Admin: 04/19/17 10:21 Dose: 40 mg Gabapentin (Neurontin) 400 mg PO QID [facility] PRN Reason: Protocol Last Admin: 04/19/17 20:59 Dose: 400 mg Hydroxyzine Pamoate (Vistaril) 50 mg PO Q8 PRN; Protocol PRN Reason: Anxiety Sodium Chloride (Sodium Chloride 0.9%) 1,000 mls @ 100 mls/hr IV .Q10H [facility] Last Admin: 04/20/17 03:21 Dose: 100 mls/hr Morphine Sulfate (Morphine) 2 mg IVP Q3H PRN PRN Reason: Pain, severe (8-10) Last Admin: 04/20/17 06:52 Dose: 2 mg Nicotine (Nicoderm Cq) 1 patch TD DAILY [facility] Last Admin: 04/19/17 10:22 Dose: 1 patch Carisoprodol [Soma] (650 Mg (Home Med)) 650 mg PO BID [facility] Last Admin: 04/19/17 10:23 Dose: Not Given Ondansetron HCl (Zofran Tab) 4 mg PO Q8H PRN PRN Reason: Nausea/Vomiting Trazodone HCl (Desyrel) 100 mg PO HS [facility] Last Admin: 04/19/17 20:59 Dose: 100 mg - Labs Labs: 04/20/17 07:00 PT 9.9 Seconds (9.9-11.8) 04/19/17 05:45 INR 0.92 (0.93-1.08) L 04/19/17 05:45 APTT 28.9 Seconds (23.7-30.8) 04/19/17 05:45 - Constitutional Appears: Well, No Acute Distress - Head Exam Head Exam: ATRAUMATIC - Eye Exam Eye Exam: EOMI - ENT Exam ENT Exam: Mucous Membranes Moist - Neck Exam Neck Exam: Normal Inspection - Respiratory Exam Respiratory Exam: Clear to Ausculation Bilateral - Cardiovascular Exam Cardiovascular Exam: REGULAR RHYTHM, RRR. absent: Gallop, Murmur - GI/Abdominal Exam GI & Abdominal Exam: Soft, Normal Bowel Sounds. absent: Distended, Guarding, Tenderness - Neurological Exam Neurological Exam: Alert, Awake, Oriented x3 - Psychiatric Exam Psychiatric exam: Normal Affect, Normal Mood Assessment and Plan - Assessment and Plan (Free Text) Assessment: 36 y/o WF with RUQ pain * HIDA today * Possible Lap Karina Friday * Soft Diet - NPO at midnight * Pain: tylenol, morphine, trazadone * IVF: NS @ 100 * Will Discuss with Dr. Segun Hawk DO PGY-1
[2017-04-20] MEDS: CARISOPRODOL PO SCH ×2 (09:20→17:23)
--- NOTE | 2017-04-20 11:42 | NM ---
PROCEDURE: Nuclear Medicine Hepatobiliary Scan HISTORY: RUQ PAIN COMPARISON: Comparison is made to the previous ultrasound dated 04/19/[address] of the abdomen dated 04/07/2017 TECHNIQUE: 5.2 mCi of technetium 99m Mebrofenin was administered intravenously. Planar images of the abdomen were obtained at 5 min intervals to 60 mins. Delayed images were also obtained. FINDINGS: LIVER: Timely and homogenous uptake. COMMON BILE DUCT: identified at 5 mins. GALLBLADDER: identified at 5 mins. SMALL BOWEL: Identified at 16 mins. IMPRESSION: No evidence of cholecystitis. The cystic duct is patent. Possible reflux to the stomach.
[2017-04-21] MEDS: Morphine 2 mg/ml ISec IVP PRN ×5 (01:21→14:03)
[2017-04-21] MEDS: Sodium Chloride 0.9% 1,000 ML IV SCH ×2 (01:22→11:13)
--- NOTE | 2017-04-21 03:26 | PROCN ---
SUBJECTIVE: She is uncomfortable in bed this morning. She is not hungry. She is NPO, stating lots of abdominal pain. She is taking the pain meds around the clock. Awaiting for a HIDA scan to be performed so we could make a decision if she needs surgery or not. PHYSICAL EXAMINATION: VITAL SIGNS: She has 98 temp, 52 pulse, 122/77 blood pressure, 20 respiratory rate, 96% O2 sat on room air. HEENT: Head is atraumatic, normocephalic. HEART: Regular rate. LUNGS: Decreased breath sounds, but clear. ABDOMEN: Soft. Right upper quadrant tenderness. EXTREMITIES: No edema. She is on currently on Soma, Desyrel, Flexeril, morphine, Neurontin, Nicoderm, Pepcid, Prozac, IV fluids, Tylenol, Vistaril, and Zofran. She has 139 sodium, potassium 3.7, BUN 5, creatinine 0.6 sugar is 88, calcium is 8.4, total bili is 0.5, AST is 16, ALT is 22, alkaline phosphatase 66, total protein 5.9. White count is 4.4, hemoglobin 10.8, hematocrit 33.2, platelets of 161, INR is 0.92. Urine is clean. Surgery is on the case, waiting for the HIDA scan. She might need to go to surgery if the HIDA scan is positive; otherwise, she is in a lot of abdominal pain and we are kind of at a standstill waiting for this right now. When I get the calls with the results, I will make the decision; otherwise, she is here with acute abdominal pain. She is n.p.o. on IV pain meds. [id number]
--- NOTE | 2017-04-21 04:24 | HP ---
HISTORY OF PRESENT ILLNESS: I know Tammy very well from the office and she has been in the hospital before for abdominal pain. She is back in the emergency room with abdominal pain. She is a 36-year-old female who came to the emergency room with abdominal pain, right upper quadrant pain, for two weeks on and off, did not get better, got very worse, the worst she has had. It got worse with food and she has a very poor appetite and she is bed in a position, not feeling well. PAST MEDICAL HISTORY: Fibromyalgia, anxiety, depression. She has had a . FAMILY HISTORY: There is hypertension in the family. SOCIAL HISTORY: She smokes cigarettes, denies alcohol or substance abuse. ALLERGIES: SHE HAS ALLERGIES TO ZOLPIDEM. MEDICATIONS: She is on numerous medications. She takes Desyrel, oxycodone, Vistaril, Zofran, NicoDerm, Neurontin, Prozac, Pepcid, fluoxetine, Cipro, and Soma. REVIEW OF SYSTEMS: She has no changes in vision or hearing. No sore throat. No neck pain. No chest pain. No shortness of breath. She has severe abdominal pain in the right upper area, a little nauseous, no vomiting. No constipation or diarrhea. Extremities are okay. No numbness or tingling. No headaches. PHYSICAL EXAMINATION: VITAL SIGNS: She has 98.3 temperature, 89 pulse, 17 respiratory rate, 135/69 blood pressure, 100% O2 sat. HEENT: Head is atraumatic, normocephalic. Extraocular muscles intact. Pupils are equally reactive to light and accommodation. Throat is moist. NECK: Supple. CARDIOPULMONARY: Heart is regular rate. Normal S1, S2. LUNGS: Decreased breath sounds, but clear to auscultation bilaterally. ABDOMEN: She has right upper quadrant tenderness and some guarding. No rebound. Decreased bowel sounds if anything. No CVA tenderness on the left, positive on the right. EXTREMITIES: No edema. NEUROLOGIC: She is a little bit worried and nervous. GCS is 15. Speech is normal. Cranial nerves II through XII are grossly intact. Alert and oriented x3. SKIN: Warm and dry. LABORATORY DATA: She has 7 white count, 13.1 hemoglobin, 37.5 hematocrit, with 247 platelets. INR is 0.92. She has 141 sodium, potassium 3.9, BUN 3, creatinine 0.6, GFR is greater than 60. Sugar is 95, calcium is 8.6. Total bilirubin is 0.3, AST is 22, ALT is 27, alkaline phosphatase 95, total protein 7.5, albumin is 4.1, lipase is 68. Urine is clean. There is an ultrasound pending. ASSESSMENT AND PLAN: She had a consult with surgery. I saw them this morning. We discussed the case. We will order a HIDA scan. I am going to see if she needs a gallbladder removal; otherwise, she will be on her pain medications, IV fluids, and hopefully she will improve. She is on observation status at this time for abdominal pain, n.p.o. Jose Enrique Stapleton DO
[2017-04-21 07:09] LABS: MEAN CELL VOLUME 88.3 fL (80.0-105.0); MEAN CORPUSCULAR HEMOGLOBIN 28.5 pg (25.0-35.0); MEAN CORPUSCULAR HGB CONC 32.3 g/dl (31.0-37.0); MEAN PLATELET VOLUME 10.8 fl (7.0-11.0); RBC 3.86 10^6/uL (3.5-6.1); RED CELL DISTRIBUTION WIDTH 12.9 % (11.5-14.5); WHITE BLOOD COUNT 4.7 10^3/ul (4.5-11.0)
--- NOTE | 2017-04-21 08:25 | CP.PCM.PN ---
Subjective - Date & Time of Evaluation Date of Evaluation: 04/21/17 Time of Evaluation: 08:20 - Subjective Subjective: General Surgery Progress Note Resident: Kenn Attending: Segun HPI:Patient seen and examined. Complaining of pain in RLQ. Pain not associated with fluid. Vomited 2X yesterday. No blood in vomit. +CHEUNG. +Flatus/+BM. -CP/SOB/ Fever/Chills. Objective - Vital Signs/Intake and Output Vital Signs (last 24 hours): Temp Pulse Resp BP Pulse Ox 98.2 F 55 L 18 131/68 96 04/21/17 08:08 04/21/17 08:08 04/21/17 08:08 04/21/17 08:08 04/21/17 08:08 Intake and Output: 04/21/17 04/21/17 06:59 18:59 Intake Total 2640 Balance 2640 - Medications Medications: Current Medications Acetaminophen (Tylenol 325mg Tab) 650 mg PO Q4H PRN PRN Reason: Headache Last Admin: 04/21/17 08:05 Dose: 650 mg Cyclobenzaprine HCl (Flexeril) 5 mg PO Q8 PRN PRN Reason: Muscle spasm Last Admin: 04/21/17 08:05 Dose: 5 mg Famotidine (Pepcid) 20 mg PO DAILY [facility] Fluoxetine HCl (Prozac) 40 mg PO DAILY [facility] Last Admin: 04/20/17 08:59 Dose: 40 mg Gabapentin (Neurontin) 400 mg PO QID [facility] PRN Reason: Protocol Last Admin: 04/20/17 21:21 Dose: 400 mg Hydroxyzine Pamoate (Vistaril) 50 mg PO Q8 PRN; Protocol PRN Reason: Anxiety Sodium Chloride (Sodium Chloride 0.9%) 1,000 mls @ 100 mls/hr IV .Q10H [facility] Last Admin: 04/21/17 01:22 Dose: 100 mls/hr Morphine Sulfate (Morphine) 2 mg IVP Q3H PRN PRN Reason: Pain, severe (8-10) Last Admin: 04/21/17 08:05 Dose: 2 mg Nicotine (Nicoderm Cq) 1 patch TD DAILY [facility] Last Admin: 04/20/17 08:59 Dose: 1 patch Carisoprodol [Soma] (650 Mg (Home Med)) 650 mg PO BID [facility] Last Admin: 04/20/17 17:23 Dose: Not Given Ondansetron HCl (Zofran Tab) 4 mg PO Q8H PRN PRN Reason: Nausea/Vomiting Ondansetron HCl (Zofran Inj) 4 mg IVP Q6H PRN PRN Reason: Nausea/Vomiting Last Admin: 04/20/17 15:55 Dose: 4 mg Trazodone HCl (Desyrel) 100 mg PO HS [facility] Last Admin: 04/20/17 21:21 Dose: 100 mg - Labs Labs: 04/21/17 06:00 04/20/17 07:00 PT 9.9 Seconds (9.9-11.8) 04/19/17 05:45 INR 0.92 (0.93-1.08) L 04/19/17 05:45 APTT 28.9 Seconds (23.7-30.8) 04/19/17 05:45 - Constitutional Appears: No Acute Distress - Head Exam Head Exam: NORMAL INSPECTION - Eye Exam Eye Exam: EOMI, Normal appearance - ENT Exam ENT Exam: Mucous Membranes Moist - Neck Exam Neck Exam: Full ROM - Respiratory Exam Respiratory Exam: Clear to Ausculation Bilateral, NORMAL BREATHING PATTERN - Cardiovascular Exam Cardiovascular Exam: REGULAR RHYTHM, RRR. absent: Gallop, Rubs, Murmur - GI/Abdominal Exam GI & Abdominal Exam: Soft, Tenderness (RLQ). absent: Distended, Firm, Guarding - Neurological Exam Neurological Exam: Alert, Awake - Skin Skin Exam: Intact Assessment and Plan - Assessment and Plan (Free Text) Assessment: 36 y/o WF with RUQ pain. * HIDA unremarkable * No surgical intervention necessary at this time * Will discuss with Dr. Segun Hawk DO PGY-1
[2017-04-21 08:57] VITALS: BMI 26.6
[2017-04-21 09:08] LABS: ALB/GLOB RATIO 1.1 (1.1-1.8); ALBUMIN 3.1 g/dL (3.0-4.8); ALT/SGPT 20 U/L (7-56); AST/SGOT 20 U/L (15-39); BLOOD UREA NITROGEN 9 mg/dL (7-21); CALCIUM 8.5 mg/dL (8.4-10.5); GFR AFRICAN-AMERICAN > 60; GFR NON-AFRICAN AMERICAN > 60
[2017-04-21] MEDS ORDERED: Propofol 10 mg/ml Inj (20 ML) ONE ×2 (09:34→09:45)
[2017-04-21] MEDS ORDERED: Sodium Chloride 0.9% 1,000 ML IV SCH (10:00)
[2017-04-21 10:32] VITALS: TEMP 98
[2017-04-21 10:37] VITALS: BP 143/90; PULSE 48; RESP 18; O2SAT 97
[2017-04-21] MEDS: CARISOPRODOL PO SCH (11:14)
--- NOTE | 2017-04-22 04:21 | DS ---
SUBJECTIVE: I saw her, resting comfortably in bed this morning. She is having some abdominal pain, but the HIDA scan was negative and Surgery is not doing any surgery on her. I do call GI to get their opinion. She is on Soma, trazodone, Flexeril, morphine, Neurontin, Nicoderm, Pepcid, Prozac, IV fluids, Tylenol, Vistaril, Zofran and she is on a regular diet and my plan is to discharge her today. PHYSICAL EXAMINATION: VITAL SIGNS: She has temperature 98.2, pulse 55, blood pressure 131/68, respiratory rate 18, O2 saturation 96% on room air. She also tells me that the morphine makes her nauseous, so I will stop tomorrow. LABORATORY DATA: She has a 4.7 white count, 11 hemoglobin, 34.1 hematocrit with 186 platelets. She has a sodium 139, potassium 3.7, BUN 5, creatinine 0.6, GFR is greater than 60, sugar is 88, calcium is 8.4, total bilirubin is 0.5, AST is 16, ALT is 22, alkaline phosphatase is 66, and total protein 5.7. ASSESSMENT AND PLAN: She was being seen by Surgery, they signed off. The nuclear HIDA scan was negative. I am waiting for Gastroenterology to give me their opinion. Otherwise, she is going to go home on her medications that she has before came into the hospital. Nothing new she is going to followup with outpatient pain management and also GI. Tammy Espinosa was here for abdominal pain and we found no reason for it. Jose Enrique Stapleton DO
--- NOTE | 2017-04-22 08:37 | CON ---
DATE: 04/21/2017 Seen and examined earlier this morning. REQUEST FOR CONSULT: Abdominal pain. HISTORY OF PRESENT ILLNESS: This is a 36-year-old female with a past medical history of PTSD/anxiety, syncope, currently has a brace on her right leg for ACL/meniscus tear, complains of right upper quadrant abdominal pain. She states she has had this pain for quite a while since [place], although it restarted again and the pain has increased in past 2 weeks. The patient states that she is unable to tolerate any oral intake, complaint of pain is like spasm. She has to curl up to feel some relief. She denies any use of NSAIDs. The patient takes oxycodone at home. Denies any symptoms of constipation or any overt GI bleed. Never had endoscopy or colonoscopy. PAST MEDICAL HISTORY: As stated, PTSD, anxiety, fibromyalgia, right leg ACL/meniscus tear. She is scheduled for surgery, I think at the end of the month. PAST SURGICAL HISTORY: She had a . ALLERGIES: ZOLPIDEM. MEDICATIONS: Reviewed as per DEC. FAMILY HISTORY: Hypertension. REVIEW OF SYSTEMS: Systems reviewed with positive findings. See HPI. PHYSICAL EXAMINATION: VITAL SIGNS: Temperature is 98.2, blood pressure is 131/68, pulse is 55, respirations 18, 98 on room air. HEENT: Sclerae is anicteric. NECK: Supple. CARDIOPULMONARY: S1, S2. LUNGS: Lungs sounds are clear. ABDOMEN: With bowel sounds, soft. There is tenderness to the right upper quadrant. No rebound or guarding. EXTREMITIES: Positive pulses. No edema. She has a brace on the right knee area. NEUROLOGIC: Awake, alert and oriented. LABORATORY DATA: WBC is 4.7, H and H is 11.0 and 34.1, platelets are 186. From 04/19/2017; PT 9.9, INR is 0.92, PTT is 28.9. Sodium is 140, potassium 3.7, BUN 9, creatinine is 0.7. LFTs are within normal limits. Urinalysis is negative. She also had abdominal ultrasound on 04/19/2017, and shows hepatosplenomegaly, gallbladder is incompletely distended, prominent questionably edematous appearing wall. No evidence of cholelithiasis. Common bile duct measures 5.0 cm. No intraluminal or ductal calculi seen. HIDA scan, no evidence of cholecystitis. The cystic duct is patent, possible reflux of the stomach. ASSESSMENT: A 36-year-old female with a past medical history of posttraumatic stress disorder/anxiety. The patient with abdominal pain mostly in the right upper quadrant, rule out any peptic ulcer disease. Did have ultrasound. Hepatosplenomegaly and gallbladder is incompletely distended. CBD is 5.0 cm. HIDA scan was negative. PLAN: The patient is on Pepcid and Flexeril. She is on IV fluids and we will also plan for endoscopy this morning. The patient is n.p.o. Thank you for this consult and for allowing us to participate in your patient's care. We will make further recommendations based upon patient's clinical course. LORETA Quinones
== END 2017-04-21 14:21 | disposition home or self-care (01) ==
LOC: ED 05:27 → ERH 06:27 → 3RNO 08:31
PROVIDERS: ADMIT Family Medicine; ATTEND Family Medicine
DX: R10.11 Right upper quadrant pain (principal); F17.210 Nicotine dependence, cigarettes, uncomplicated; F43.10 Post-traumatic stress disorder, unspecified; M10.9 Gout, unspecified; M23.209 Derangement of unspecified meniscus due to old tear or injury, unspecified knee; M79.7 Fibromyalgia; Z79.899 Other long term (current) drug therapy; Z82.49 Family history of ischemic heart disease and other diseases of the circulatory system; R40.2412 Glasgow coma scale score 13-15, at arrival to emergency department; F41.9 Anxiety disorder, unspecified; F32.89 Other specified depressive episodes; Z88.9 Allergy status to unspecified drugs, medicaments and biological substances; R16.2 Hepatomegaly with splenomegaly, not elsewhere classified; K29.50 Unspecified chronic gastritis without bleeding; K20.9 Esophagitis, unspecified; K29.80 Duodenitis without bleeding
CPT/HCPCS: 36415; 43239; 76700; 78227; 80053; 81003; 83690; 85025; 85027; 85610; 85730; 88305; 88312; 88342; 96374; 96375; 96376; 99283; A9537; G0378; J1885; J2270; J2405; J2704; J7040

== ENCOUNTER 2017-04-22 12:05 | Emergency (ER) | payer MEDICAID ==
[2017-04-22 12:06] VITALS: BMI 26.6
[2017-04-22 12:26] VITALS: RESP 18; TEMP 98.8; O2SAT 99
[2017-04-22 13:15] LABS: BASO # 0.01 K/mm3 (0.0-2.0); BASO % 0.2 % (0.0-3.0); EOS # 0.1 (0.0-0.7); EOS % 1.4 % (1.5-5.0); GRAN # 5.08 (1.4-6.5); GRAN % 76.6 % (50.0-68.0); HEMOGLOBIN 11.8 gm/dL (12.0-16.0); LYMPH # 0.9 (1.2-3.4); LYMPH % 14.2 % (22.0-35.0); MEAN CELL VOLUME 86.5 fL (80.0-105.0); MEAN CORPUSCULAR HEMOGLOBIN 29.6 pg (25.0-35.0); MEAN CORPUSCULAR HGB CONC 34.2 g/dl (31.0-37.0); MEAN PLATELET VOLUME 11.3 fl (7.0-11.0); MONO # 0.5 (0.1-0.6); MONO % 7.6 % (1.0-6.0); PLATELET COUNT 168 10^3/uL (120.0-450.0); RBC 3.99 10^6/uL (3.5-6.1); RED CELL DISTRIBUTION WIDTH 12.5 % (11.5-14.5); WHITE BLOOD COUNT 6.6 10^3/ul (4.5-11.0)
[2017-04-22 13:25] LABS: ALB/GLOB RATIO 1.3 (1.1-1.8); ALBUMIN 3.9 g/dL (3.0-4.8); ALT/SGPT 27 U/L (7-56); AST/SGOT 29 U/L (15-39); BLOOD UREA NITROGEN 6 mg/dL (7-21); CALCIUM 9.2 mg/dL (8.4-10.5); GFR AFRICAN-AMERICAN > 60; GFR NON-AFRICAN AMERICAN > 60; LIPASE 25 U/L (23-300)
--- NOTE | 2017-04-22 13:25 | ED PDOC ---
Arrival/HPI - General Historian: Patient <Allen Valencia - Last Filed: 04/22/17 15:34> <Verito Loo - Last Filed: 04/22/17 16:22> - General Chief Complaint: Abdominal Pain Time Seen by Provider: 04/22/17 12:20 - History of Present Illness Narrative History of Present Illness (Text): 04/22/17 13:20 This patient is a 36yo F who is well known to the [facility] staff who is coming into the hospital after she was discharged from the hospital because she was told to come back if she had any abdominal pain. During her most recent hospital stay, she was given a HIDA scan which was negative, abdominal ultrasound which was negative, and had an EGD done yesterday (results not back yet, awaiting Dr. Moreland call back). patient was given protonix after the EGD. The patient states that her abdominal pain has not gotten any better since it started 2 weeks ago. 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 Most notably, in the past she was filling multiple prescriptions for 30mg Q4H Oxycodone from notes from the inpatient psychiatric unit here. Surgery signed off the case stating there was no intervention indicated at this time; all tests were negative. She was scheduled for outpatient GI scope, endoscopy, and results have not yet been elucidated but patient was started on protonix after the procedure. Dr. Fields who saw her in the hospital said that "there is no objective cause for this patients abdominal pain". The patient is admitting to continuous vomiting, unable to hold down any food/ liquid, fevers/chills, and needing to stay curled up in a ball due to the abdominal pain which is epigastric/band like around her upper abdomen. She denies any CHEUNG, CP, SOB, diarrhea, dysuria/freq/urg, or lower extremity pain/ swelling. She does have a boot on her right foot because she tripped and tore her achilles and ACL. (Allen Valencia) Past Medical History - Infectious Disease Hx of Infectious Diseases: None - Tetanus Immunization Tetanus Immunization: Unknown - Cardiac Hx Cardiac Disorders: (hypotension) - Pulmonary Hx Respiratory Disorders: No - Neurological Other/Comment: "I passed out on . I was put on seroquel and my blood pressure dropped to 60/40." pt stated. - HEENT Hx HEENT Disorder: No - Renal Hx Renal Disorder: No - Endocrine/Metabolic Hx Endocrine Disorders: No - Hematological/Oncological Hx Blood Disorders: No - Integumentary Hx Dermatological Disorder: No - Musculoskeletal/Rheumatological Hx Falls: Yes (past falls and syncope) - Gastrointestinal Hx Gastrointestinal Disorders: No Other/Comment: chronic abd. pain - Genitourinary/Gynecological Hx Genitourinary Disorders: No - Psychiatric Hx Psychophysiologic Disorder: Yes Hx Anxiety: Yes Hx Depression: Yes Hx Substance Use: No - Surgical History Hx Inguinal Hernia Repair: Yes (b/l at 6 yrs old) - Anesthesia Hx Anesthesia Reactions: No Hx Malignant Hyperthermia: No <Allen Valencia - Last Filed: 04/22/17 15:34> - Provider Review Nursing Documentation Reviewed: Yes <Verito Loo - Last Filed: 04/22/17 16:22> Family/Social History Smoking Status: Light Smoker < 10 Cigarettes Daily Hx Alcohol Use: No Hx Substance Use: No <Allen Valencia - Last Filed: 04/22/17 15:34> - Physician Review Nursing Documentation Reviewed: Yes Family/Social History: Unknown Family HX <Verito Loo - Last Filed: 04/22/17 16:22> Allergies/Home Meds <Allen Valencia - Last Filed: 04/22/17 15:34> <Verito Loo - Last Filed: 04/22/17 16:22> Allergies/Adverse Reactions: Allergies zolpidem tartrate [From Ambien] Allergy (Verified 04/06/17 11:34) SWELLING Home Medications: Home Meds Medication Instructions Recorded Confirmed oxyCODONE [oxyCODONE Immediate 5 mg PO Q4 09/18/16 04/22/17 Release Tab] Fluoxetine HCl [Prozac] 80 mg PO DAILY 04/22/17 04/22/17 traZODone [Desyrel] 200 mg PO HS 04/22/17 04/22/17 Review of Systems - Review of Systems Constitutional: Fevers. absent: Fatigue, Weight Change Eyes: absent: Vision Changes, Photophobia ENT: absent: Hearing Changes, Tinnitus Respiratory: absent: SOB, Cough Cardiovascular: absent: Chest Pain, Palpitations Gastrointestinal: Abdominal Pain, Nausea, Vomiting Genitourinary Female: absent: Dysuria, Frequency, Hematuria Musculoskeletal: absent: Arthralgias Skin: absent: Rash, Pruritis Neurological: absent: Headache, Dizziness Endocrine: absent: Diaphoresis Hemo/Lymphatic: absent: Adenopathy Psychiatric: absent: Anxiety, Depression <Allen Valencia - Last Filed: 04/22/17 15:34> Physical Exam Temperature: Afebrile Blood Pressure: Normal Pulse: Regular Respiratory Rate: Normal Appearance: Positive for: Well-Appearing Pain Distress: Mild Mental Status: Positive for: Alert and Oriented X 3 - Systems Exam Head: Present: Atraumatic Pupils: Present: PERRL Extroacular Muscles: Present: EOMI Conjunctiva: Present: Normal Mouth: Present: Moist Mucous Membranes Neck: Present: Normal Range of Motion. No: Meningeal Signs Respiratory/Chest: Present: Clear to Auscultation, Good Air Exchange. No: Respiratory Distress Cardiovascular: Present: Regular Rate and Rhythm, Normal S1, S2. No: Murmurs Abdomen: Present: Tenderness (in the epigastrium on light and deep palpation; however when used stethoscope to distract the patient was able to push down extremely far without any pain or discomfort ), Normal Bowel Sounds. No: Distention, Peritoneal Signs, Rebound, Guarding, McBurney's Point Tender, Rovsing's Sign Present, Hernias Back: No: CVA Tenderness Upper Extremity: Present: Normal Inspection. No: Cyanosis Lower Extremity: Present: Normal Inspection. No: Edema (boot present on the right ankle) Neurological: Present: GCS=15, CN II-XII Intact Skin: Present: Warm Psychiatric: Present: Alert, Oriented x 3 <Allen Valencia - Last Filed: 04/22/17 15:34> Vital Signs Reviewed: Yes <Verito Loo - Last Filed: 04/22/17 16:22> Vital Signs Temp Pulse Resp BP Pulse Ox 04/22/17 14:08 67 18 121/71 99 04/22/17 13:20 66 18 122/79 99 04/22/17 12:06 98.8 F 64 18 124/84 99 Medical Decision Making <Allen Valencia - Last Filed: 04/22/17 15:34> - Lab Interpretations I have reviewed the lab results: Yes <Verito Loo - Last Filed: 04/22/17 16:22> ED Course and Treatment: 04/22/17 13:26 Old records were reviewed; it appears that the patient is extremely pain seeking and has been fired from many practices due to narcotic abuse Ordered Labs, Protonix and Zofran Will Re-assess after labs and call back from [facility] for EGD results 04/22/17 13:53 All labs are WNL; CBC CMP, and Urine Awaiting call back from [facility] for EGD results patient is resting comfortably in bed; however repeatedly harassing staff for pain medication 04/22/17 15:35 Patient wishes to sign out AMA she does not wish to wait for us to get in contact with the GI doctor for the results of her EGD She continues to request "something for her pain" Patient was explained risks and benefits of signing out AMA including which she understood all questions were answered education was given regarding opiate abuse patient in denial about opiate dependence even given logical proof of her filling of opiates patient walked out of ER (Allen Valencia) 04/22/17 Patient Seen With Resident: In agreement with resident note which contains more details about the patient. Patient was seen and evaluated with resident. Came up with plan and treatment together. 04/22/17 16:10 Patient seen and examined with resident. She had a recent hospitalization with an extensive workup with no clear etiology for the pain. Last surgical note said no surgical intervention necessary at this time. She then had an EGD done yesterday. Per follow up RN, the patient's EGD showed esophagitis, gastritis, and duodenitis. Multiple calls put out for Dr. Moreland to discuss EGD results and callback was awaited. Labs were repeated and found to be unremarable. CXR done, given EGD done yesterday with no acute findings. In the meantime, patient given protonix and zofran, and IVF; exam is unremarkable. She said no relief from the meds. She was then given tramadol and said no relief from the meds. Patient asking for more pain medicine. Explained to medicine that given the repeat visits for the same pain, per [facility] Narcotic policy, narcotic medications would be advised. She said her abdominal muscles were hiram; given a muscle relaxant. While awaiting Dr. Moreland to call back, the patient insisted on leaving the ED prior to determining her disposition, understanding the adverse risks that are possible. [employer] INTERFERENCE EXPERT on patient was checked. She received 56 oxycodone tablets on 04/14/17. (Verito Loo) - Lab Interpretations Lab Results: 04/22/17 12:56 04/22/17 12:56 Lab Results 04/22/17 13:10: Urine Color Yellow, Urine Appearance Clear, Urine pH 8.0, Ur Specific [place] 1.020, Urine Protein Trace H, Urine Glucose (UA) Negative, Urine Ketones Negative, Urine Blood Negative, Urine Nitrate Negative, Urine Bilirubin Negative, Urine Urobilinogen 1.0 H, Ur Leukocyte Esterase Negative, Urine RBC Negative, Urine WBC Negative, Urine HCG, Qual Negative 04/22/17 12:56: Sodium 139, Potassium 4.0, Chloride 107, Carbon Dioxide 23, Anion Gap 13, BUN 6 L, Creatinine 0.6, Est GFR ( Amer) > 60, Est GFR (Non -Af Amer) > 60, Random Glucose 93, Calcium 9.2, Total Bilirubin 0.7, AST 29, ALT 27, Alkaline Phosphatase 77, Total Protein 6.9, Albumin 3.9, Globulin 3.0, Albumin/Globulin Ratio 1.3, Lipase 25 04/22/17 12:56: WBC 6.6 D, RBC 3.99, Hgb 11.8 L, Hct 34.5 L, MCV 86.5, MCH 29.6 , MCHC 34.2, RDW 12.5, Plt Count 168, MPV 11.3 H, Gran % 76.6 H, Lymph % (Auto) 14.2 L, Wilson % (Auto) 7.6 H, Eos % (Auto) 1.4 L, Baso % (Auto) 0.2, Gran # 5.08 , Lymph # 0.9 L, Wilson # 0.5, Eos # 0.1, Baso # 0.01 - RAD Interpretation Radiology Orders: 04/22/17 14:14 CHEST TWO VIEWS (PA/LAT) [RAD] Stat - Medication Orders Current Medication Orders: Discontinued Medications Baclofen (Lioresal) 10 mg PO ONCE STA Stop: 04/22/17 15:03 Last Admin: 04/22/17 15:10 Dose: 10 mg Ondansetron HCl (Zofran Inj) 4 mg IVP STAT STA Stop: 04/22/17 12:55 Last Admin: 04/22/17 13:18 Dose: 4 mg Pantoprazole Sodium (Protonix Inj) 40 mg IVP STAT STA Stop: 04/22/17 12:55 Last Admin: 04/22/17 13:18 Dose: 40 mg Sucralfate (Carafate Oral Susp) 1 gm PO STAT STA Stop: 04/22/17 15:03 Last Admin: 04/22/17 15:10 Dose: 1 gm Tramadol/Acetaminophen (Ultracet 37.5/325 Mg) 1 tab PO STAT STA Stop: 04/22/17 14:15 Last Admin: 04/22/17 14:20 Dose: 1 tab <Allen Valencia - Last Filed: 04/22/17 15:34> - Scribe Statement The provider has reviewed the documentation as recorded by the Scribe <Verito Loo - Last Filed: 04/22/17 16:22> - Scribe Statement 04/22/2017 Juani Davila Provider Scribe Attestation: All medical record entries made by the Scribe were at my direction and personally dictated by me. I have reviewed the chart and agree that the record accurately reflects my personal performance of the history, physical exam, medical decision making, and the department course for this patient. I have also personally directed, reviewed, and agree with the discharge instructions and disposition. (Verito Loo) Disposition/Present on Arrival - Present on Arrival Any Indicators Present on Arrival: No History of DVT/PE: No History of Uncontrolled Diabetes: No Urinary Catheter: No History of Decub. Ulcer: No History Surgical Site Infection Following: None - Disposition Have Diagnosis and Disposition been Completed?: Yes Disposition Time: 15:37 <Allen Valencia - Last Filed: 04/22/17 15:34> - Disposition Patient Plan: Other (AMA) <Verito Loo - Last Filed: 04/22/17 16:22> - Disposition Diagnosis: Abdominal pain Disposition: AGAINST MEDICAL ADVICE Condition: UNKNOWN Referrals: PCP,NO [Primary Care Provider] - Follow up with primary
[2017-04-22 13:35] LABS: URINE BILIRUBIN NEGATIVE (NEGATIVE); URINE BLOOD NEGATIVE (NEGATIVE); URINE GLUCOSE (UA) NEGATIVE (NEGATIVE); URINE LEUKOCYTE ESTERASE NEGATIVE Leu/uL (NEGATIVE); URINE NITRATE NEGATIVE (NEGATIVE); URINE PROTEIN TRACE mg/dL (<30 mg/dL)
[2017-04-22 13:36] LABS: URINE APPEARANCE CLEAR (CLEAR); URINE COLOR YELLOW (YELLOW)
[2017-04-22 13:37] LABS: HCG,QUALITATIVE URINE NEGATIVE (NEGATIVE)
[2017-04-22 13:41] LABS: URINE RBC NEGATIVE /hpf (0-2); URINE WBC NEGATIVE /hpf (0-6)
[2017-04-22 14:08] VITALS: BP 121/71; PULSE 67
[2017-04-22] MEDS ORDERED: TraMADol/Apap 37.5/325 mg Tab PO STA (14:14)
[2017-04-22] MEDS ORDERED: Sucralfate 1 gm/10 ml Oral Susp UD PO STA (15:02)
--- NOTE | 2017-04-22 15:12 | RAD ---
HISTORY: epigastric pain post EGD - r/o free air COMPARISON: No prior. TECHNIQUE: Chest PA and lateral FINDINGS: LUNGS: No active pulmonary disease. PLEURA: No significant pleural effusion identified. No pneumothorax apparent. CARDIOVASCULAR: Normal. OSSEOUS STRUCTURES: No significant abnormalities. VISUALIZED UPPER ABDOMEN: Normal. OTHER FINDINGS: None. IMPRESSION: No active disease.
== END 2017-04-22 15:32 | disposition left against medical advice (07) ==
LOC: ED 12:05
DX: R10.9 Unspecified abdominal pain (principal); I95.9 Hypotension, unspecified
CPT/HCPCS: 71020; 80053; 81001; 83690; 84703; 85025; 96374; 96375; 99285; C9113; J2405

== ENCOUNTER 2017-09-03 08:54 | Emergency (ER) | payer MEDICAID ==
[2017-09-03 08:54] VITALS: BMI 26.6
[2017-09-03] MEDS ORDERED: Sodium Chloride 0.9% 1,000 ML IV STA (09:45)
[2017-09-03 09:49] VITALS: TEMP 98; O2SAT 100
[2017-09-03 10:03] LABS: BASO # 0.01 K/mm3 (0.0-2.0); BASO % 0.2 % (0.0-3.0); EOS # 0.1 (0.0-0.7); EOS % 1.2 % (1.5-5.0); GRAN # 3.66 (1.4-6.5); GRAN % 73.7 % (50.0-68.0); HEMATOCRIT 37.8 % (36.0-48.0); LYMPH % 19.1 % (22.0-35.0); MEAN CELL VOLUME 89.6 fl (80.0-105.0); MEAN CORPUSCULAR HEMOGLOBIN 30.6 pg (25.0-35.0); MEAN CORPUSCULAR HGB CONC 34.1 g/dl (31.0-37.0); MEAN PLATELET VOLUME 10.5 fl (7.0-11.0); MONO # 0.3 (0.1-0.6); MONO % 5.8 % (1.0-6.0); RED CELL DISTRIBUTION WIDTH 13.1 % (11.5-14.5)
[2017-09-03 10:14] LABS: INR 1.08 (0.93-1.08); PARTIAL THROMBOPLASTIN TIME 31.9 Seconds (25.1-36.5)
[2017-09-03] MEDS ORDERED: diaZEpam 10 mg/2 ml Inj IVP ONE (10:17)
[2017-09-03 10:20] LABS: ALB/GLOB RATIO 1.4 (1.1-1.8); ALKALINE PHOSPHATASE 71 U/L (38-126); ALT/SGPT 22 U/L (7-56); AST/SGOT 29 U/L (14-36); BILIRUBIN,TOTAL 0.6 mg/dL (0.2-1.3); BLOOD UREA NITROGEN 5 mg/dL (7-21); CALCIUM 9.3 mg/dL (8.4-10.5); CARBON DIOXIDE 27 mmol/L (21-33); CHLORIDE 108 mmol/L (98-107); GFR AFRICAN-AMERICAN > 60; GLUCOSE,RANDOM 106 mg/dL (70-110); LIPASE 49 U/L (23-300); POTASSIUM 3.9 mmol/L (3.6-5.0); SODIUM 143 mmol/L (132-148)
[2017-09-03] MEDS ORDERED: Iohexol 350 MG/100 ML VIAL ONE (10:44)
[2017-09-03] MEDS ORDERED: Morphine 2 mg/ml ISec IVP STA ×2 (10:51→11:50)
[2017-09-03 11:08] LABS: URINE BILIRUBIN NEGATIVE (NEGATIVE); URINE BLOOD LARGE (NEGATIVE); URINE GLUCOSE (UA) NEGATIVE (NEGATIVE); URINE KETONE NEGATIVE (NEGATIVE); URINE LEUKOCYTE ESTERASE NEGATIVE Leu/uL (NEGATIVE); URINE PROTEIN TRACE mg/dL (<30 mg/dL); URINE UROBILINOGEN 0.2 E.U./dL (<1 E.U./dL)
[2017-09-03 11:09] LABS: URINE APPEARANCE CLEAR (CLEAR); URINE COLOR DARK YELLOW (YELLOW)
[2017-09-03 11:11] LABS: URINE RBC 25 - 30 /hpf (0-2)
[2017-09-03 11:12] LABS: URINE AMORPHOUS SEDIMENT FEW; URINE BACTERIA MANY (NEG); URINE EPITHELIAL CELLS MANY /hpf (0-5)
[2017-09-03 11:40] VITALS: BP 128/86; PULSE 68; RESP 18
--- NOTE | 2017-09-03 12:23 | ED PDOC ---
Arrival/HPI - General Chief Complaint: Abdominal Pain Time Seen by Provider: 09/03/17 09:30 Historian: Patient - History of Present Illness Narrative History of Present Illness (Text): 09/03/17 12:19 36yo female with PMHx of fibromyalgia biba for sharp, nonradiating, right mid abdominal pain x 2days. She states she have had similar symptom twice in the past. the last time was 6months ago, per patient. She denies nausea, vomiting, diarrhea, fever, urinary symptoms, chest pain, sick contact, any other complaint. Past Medical History - Provider Review Nursing Documentation Reviewed: Yes - Infectious Disease Hx of Infectious Diseases: None - Tetanus Immunization Tetanus Immunization: Unknown - Reproductive Menopause: No - Cardiac Hx Cardiac Disorders: (hypotension) - Pulmonary Hx Respiratory Disorders: No - Neurological Hx Neurological Disorder: No - HEENT Hx HEENT Disorder: No - Renal Hx Renal Disorder: No - Endocrine/Metabolic Hx Endocrine Disorders: No - Hematological/Oncological Hx Blood Disorders: No - Integumentary Hx Dermatological Disorder: No - Musculoskeletal/Rheumatological Other/Comment: Fibromyalgia x 10 years, 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 as per pt was put on seroquel which caused hypotension, pt passed out on , and has right torn acl, right torn meniscus, and torn ligaments to right ankle, presently using cane meli wrap from r ft to above r knee - Gastrointestinal Hx Gastrointestinal Disorders: No - Genitourinary/Gynecological Hx Genitourinary Disorders: No - Psychiatric Hx Psychophysiologic Disorder: Yes Hx Anxiety: Yes Hx Depression: Yes Hx Substance Use: No - Surgical History Hx Section: Yes (07/13/2012) - Anesthesia Hx Anesthesia: Yes Hx Anesthesia Reactions: No Family/Social History - Physician Review Nursing Documentation Reviewed: Yes Family/Social History: Unknown Family HX Smoking Status: Light Smoker < 10 Cigarettes Daily Hx Alcohol Use: No Hx Substance Use: No Allergies/Home Meds Allergies/Adverse Reactions: Allergies zolpidem tartrate [From Ambien] Allergy (Verified 04/06/17 11:34) SWELLING Home Medications: Home Meds Medication Instructions Recorded Confirmed oxyCODONE [oxyCODONE Immediate 5 mg PO Q4 09/18/16 04/22/17 Release Tab] Fluoxetine HCl [Prozac] 80 mg PO DAILY 04/22/17 04/22/17 traZODone [Desyrel] 200 mg PO HS 04/22/17 04/22/17 Review of Systems - Physician Review All systems were reviewed & negative as marked: Yes - Review of Systems Constitutional: Normal Eyes: Normal ENT: Normal Respiratory: Normal Cardiovascular: Normal Gastrointestinal: Abdominal Pain. absent: Constipation, Diarrhea, Nausea, Vomiting, Hematochezia, Hematemesis Genitourinary Female: Normal Musculoskeletal: Normal Skin: Normal Neurological: Normal Endocrine: Normal Hemo/Lymphatic: Normal Psychiatric: Normal Physical Exam Vital Signs Reviewed: Yes Vital Signs Temp Pulse Resp BP Pulse Ox 09/03/17 11:40 68 18 128/86 100 09/03/17 09:48 98.0 F 71 17 130/90 100 09/03/17 09:14 98.9 F 82 16 131/83 98 Temperature: Afebrile Blood Pressure: Normal Pulse: Regular Respiratory Rate: Normal Appearance: Positive for: Well-Appearing, Non-Toxic, Comfortable Pain Distress: None Mental Status: Positive for: Alert and Oriented X 3 - Systems Exam Head: Present: Atraumatic, Normocephalic Pupils: Present: PERRL Extroacular Muscles: Present: EOMI Conjunctiva: Present: Normal Mouth: Present: Moist Mucous Membranes Neck: Present: Normal Range of Motion Respiratory/Chest: Present: Clear to Auscultation, Good Air Exchange. No: Respiratory Distress, Accessory Muscle Use Cardiovascular: Present: Regular Rate and Rhythm, Normal S1, S2. No: Murmurs Abdomen: Present: Tenderness (Right mid abdominal tenderness), Normal Bowel Sounds, Other (Soft). No: Distention, Peritoneal Signs, Rebound, Guarding, McBurney's Point Tender, Rovsing's Sign Present Back: Present: Normal Inspection Upper Extremity: Present: Normal Inspection. No: Cyanosis, Edema Lower Extremity: Present: Normal Inspection. No: Edema Neurological: Present: GCS=15, CN II-XII Intact, Speech Normal Skin: Present: Warm, Dry, Normal Color. No: Rashes Psychiatric: Present: Alert, Oriented x 3, Normal Insight, Normal Concentration Medical Decision Making ED Course and Treatment: 09/03/17 20:43 PT presented for stated history. Her lab was unremarkable. Pt continued to ask for pain medication in ED. I suspect some element of pain seeking behavior. Her abdomen was minimally tender on exam. Abdominal Ct was ordered Abdominal/Pelvic CT - negative Review of pt's record indicates previous visit to ED for this same nonspecific abdominal pain. Shew as advised to f/u with her PMD. - Lab Interpretations Lab Results: 09/03/17 09:50 09/03/17 09:50 Lab Results 09/03/17 10:50: Urine Color Dark yellow, Urine Appearance Clear, Urine pH 6.0, Ur Specific [place] 1.010, Urine Protein Trace H, Urine Glucose (UA) Negative, Urine Ketones Negative, Urine Blood Large H, Urine Nitrate Negative, Urine Bilirubin Negative, Urine Urobilinogen 0.2, Ur Leukocyte Esterase Negative, Urine RBC 25 - 30, Urine WBC 1 - 3, Ur Epithelial Cells Many, Amorphous Sediment Few, Urine Bacteria Many, Urine Other Uyeast 09/03/17 09:50: Sodium 143, Potassium 3.9, Chloride 108 H, Carbon Dioxide 27, Anion Gap 12, BUN 5 L, Creatinine 0.6 L, Est GFR ( Amer) > 60, Est GFR ( Non-Af Amer) > 60, Random Glucose 106, Calcium 9.3, Total Bilirubin 0.6, AST 29 , ALT 22, Alkaline Phosphatase 71, Total Protein 7.0, Albumin 4.1, Globulin 2.9 , Albumin/Globulin Ratio 1.4, Lipase 49 09/03/17 09:50: PT 11.9, INR 1.08, APTT 31.9 09/03/17 09:50: WBC 5.0 D, RBC 4.22, Hgb 12.9, Hct 37.8, MCV 89.6, MCH 30.6, MCHC 34.1, RDW 13.1, Plt Count 237, MPV 10.5, Gran % 73.7 H, Lymph % (Auto) 19.1 L, [place] % (Auto) 5.8, Eos % (Auto) 1.2 L, Baso % (Auto) 0.2, Gran # 3.66, Lymph # 1.0 L, [place] # 0.3, Eos # 0.1, Baso # 0.01 - RAD Interpretation Radiology Orders: 09/03/17 09:46 ABD & PELVIS IV CONTRAST ONLY [CT] Stat - Medication Orders Current Medication Orders: Discontinued Medications Diazepam (Valium) 5 mg IVP ONCE ONE PRN Reason: Protocol Stop: 09/03/17 10:18 Last Admin: 09/03/17 10:32 Dose: 5 mg IVP Administration Document 09/03/17 10:32 HI (Rec: 09/03/17 10:[id number]) Charges for Administration # of IVP Administrations 1 Famotidine (Pepcid) 20 mg IVP STAT STA Stop: 09/03/17 09:46 Last Admin: 09/03/17 10:05 Dose: 20 mg IVP Administration Document 09/03/17 10:05 HI (Rec: 09/03/17 10:[id number]) Charges for Administration # of IVP Administrations 1 Sodium Chloride (Sodium Chloride 0.9%) 1,000 mls @ 1,000 mls/hr IV .Q1H STA Stop: 09/03/17 10:44 Last Admin: 09/03/17 10:04 Dose: 1,000 mls/hr eMAR Start Stop Document 09/03/17 10:04 HI (Rec: 09/03/17 10:[id number]) Intravenous Solution Start Date 09/03/17 Start Time 10:05 Ketorolac Tromethamine (Toradol) 30 mg IVP STAT STA Stop: 09/03/17 09:46 Last Admin: 09/03/17 10:06 Dose: 30 mg MAR Pain Assessment Document 09/03/17 10:06 HI (Rec: 09/03/17 10:[id number]) Pain Reassessment Is this a pain reassessment? No Sleep Is patient sleeping during reassessment? No Presence of Pain Presence of Pain Yes Pain Scale Used Pain Scale Used Numeric Location Pain Location Body Site Abdomen Description Description Constant Pain Behavior Moaning Grasping Site Restlessness Facial Grimacing IVP Administration Document 09/03/17 10:06 HI (Rec: 09/03/17 10:[email or web address]) Charges for Administration # of IVP Administrations 1 Re-Assess: CASH Pain Assessment Document 09/03/17 11:06 HI (Rec: 09/03/17 12:[email or web address]) Pain Reassessment Is this a pain reassessment? Yes Sleep Is patient sleeping during reassessment? No Presence of Pain Presence of Pain Yes Morphine Sulfate (Morphine) 2 mg IVP STAT STA Stop: 09/03/17 10:52 Last Admin: 09/03/17 10:59 Dose: 2 mg MAR Pain Assessment Document 09/03/17 10:59 HI (Rec: 09/03/17 11:[id number]) Pain Reassessment Is this a pain reassessment? Yes Sleep Is patient sleeping during reassessment? No Presence of Pain Presence of Pain Yes Location Pain Location Body Site Abdomen Description Pain Behavior Moaning Crying Grasping Site Facial Grimacing Alleviating Factors/Management Medication Techniques Alleviating Factors Medication IVP Administration Document 09/03/17 10:59 HI (Rec: 09/03/17 11:[id number]) Charges for Administration # of IVP Administrations 1 Re-Assess: MAR Pain Assessment Document 09/03/17 11:59 HI (Rec: 09/03/17 12:13 HI [id number]) Pain Reassessment Is this a pain reassessment? Yes Sleep Is patient sleeping during reassessment? No Presence of Pain Presence of Pain Yes Morphine Sulfate (Morphine) 2 mg IVP STAT STA Stop: 09/03/17 11:51 Last Admin: 09/03/17 12:12 Dose: 2 mg MAR Pain Assessment Document 09/03/17 12:12 HI (Rec: 09/03/17 12:13 HI [id number]) Pain Reassessment Is this a pain reassessment? Yes Sleep Is patient sleeping during reassessment? No Presence of Pain Presence of Pain No Location Pain Location Body Site Abdomen IVP Administration Document 09/03/17 12:12 HI (Rec: 09/03/17 12:[id number]) Charges for Administration # of IVP Administrations 1 Ondansetron HCl (Zofran Inj) 4 mg IVP STAT STA Stop: 09/03/17 09:46 Last Admin: 09/03/17 10:05 Dose: 4 mg IVP Administration Document 09/03/17 10:05 HI (Rec: 09/03/17 10:[id number]) Charges for Administration # of IVP Administrations 1 Disposition/Present on Arrival - Present on Arrival Any Indicators Present on Arrival: No History of DVT/PE: No History of Uncontrolled Diabetes: No Urinary Catheter: No History of Decub. Ulcer: No History Surgical Site Infection Following: None - Disposition Have Diagnosis and Disposition been Completed?: Yes Diagnosis: Abdominal pain Disposition: HOME/ ROUTINE Disposition Time: 12:20 Condition: GOOD Discharge Instructions (ExitCare): Abdominal Pain (ED) Additional Instructions: Follow up with your Doctor Return to ED for any new or worsening symptoms Referrals: PCP,NO [Primary Care Provider] - Follow up with primary Forms: [employer] (British)
--- NOTE | 2017-09-03 12:56 | CT ---
PROCEDURE: CT Abdomen and Pelvis with contrast HISTORY: abdominal pain COMPARISON: None. TECHNIQUE: Contrast dose: 100 cc of Omni 350 Radiation dose: Total exam DLP = 688 mGy-cm. This CT exam was performed using one or more of the following dose reduction techniques: Automated exposure control, adjustment of the mA and/or kV according to patient size, and/or use of iterative reconstruction technique. FINDINGS: LOWER THORAX: Unremarkable. LIVER: Unremarkable. No gross lesion or ductal dilatation. GALLBLADDER AND BILE DUCTS: Unremarkable. PANCREAS: Unremarkable. No gross lesion or ductal dilatation. SPLEEN: Unremarkable. ADRENALS: Unremarkable. No mass. KIDNEYS AND URETERS: Unremarkable. No hydronephrosis. No solid mass. VASCULATURE: Unremarkable. No aortic aneurysm. BOWEL: Unremarkable. No obstruction. No gross mural thickening. APPENDIX: Normal appendix. PERITONEUM: Unremarkable. No free fluid. No free air. LYMPH NODES: Unremarkable. No enlarged lymph nodes. BLADDER: Unremarkable. REPRODUCTIVE: Unremarkable. BONES: No acute fracture. OTHER FINDINGS: None. IMPRESSION: No acute findings
== END 2017-09-03 12:25 | disposition home or self-care (01) ==
LOC: ED 08:54
DX: R10.9 Unspecified abdominal pain (principal); M79.7 Fibromyalgia; F17.210 Nicotine dependence, cigarettes, uncomplicated
CPT/HCPCS: 74177; 80053; 81001; 83690; 85025; 85610; 85730; 96374; 96375; 96376; 99284; J1885; J2270; J2405; J3360; J7040; Q9967

== ENCOUNTER 2017-09-04 07:51 | Emergency (ER) | payer MEDICAID ==
[2017-09-04 08:03] VITALS: TEMP 97.8; O2SAT 100
--- NOTE | 2017-09-04 08:14 | ED PDOC ---
Arrival/HPI - General Historian: Patient - History of Present Illness Time/Duration: < week Symptom Onset: Sudden Symptom Course: Worsening Quality: Stabbing Severity Level: Severe Activities at Onset: Rest <Aj Montoya - Last Filed: 09/04/17 14:06> <Kike Gomez - Last Filed: 09/04/17 14:29> - General Chief Complaint: Abdominal Pain Time Seen by Provider: 09/04/17 07:53 - History of Present Illness Narrative History of Present Illness (Text): 09/04/17 08:10 This is a 36 yo female with past medical hx of PTSD, fibromyalgia, anxiety, depressio, presenting to ER today with chief complaint of abdominal pain. Pt came in today by ambulance she called herself. She was just in the ER on 09/03. She was discharged home after a negative CT scan. She says abdominal pain is lower left and lower right quadrant with some radiation to right flank. It came on suddenly. She reports it is "stabbing" and "sharp. " She says it is getting worse. She reports vomiting 2x, non bloody non bilious. She denies diarrhea and constipation. She denies urinary symptoms. She has taken ibuprofen for the pain with no relief. Her FDLMP is September 01. PMH: PTSD, fibromyalgia, anxiety, depression PSH: C section x 1, ankle surgery, hernia surgery when she was 6 yrs old Allergies: NKDA FH: Denies Home meds: none Social: current smoker. 1/2 ppd for 4 yrs. social drinker. denies drug use. works as an emt. 09/04/17 08:29 09/04/17 08:46 (Aj Montoya) Past Medical History - Provider Review Nursing Documentation Reviewed: Yes - Travel History Have you recently traveled outside [place] w/in the past 3 mons?: No - Infectious Disease Hx of Infectious Diseases: None - Tetanus Immunization Tetanus Immunization: Unknown - Reproductive Menopause: No - Cardiac Hx Cardiac Disorders: No (hypotension) - Pulmonary Hx Respiratory Disorders: No - Neurological Hx Neurological Disorder: No - HEENT Hx HEENT Disorder: No - Renal Hx Renal Disorder: No - Endocrine/Metabolic Hx Endocrine Disorders: No - Hematological/Oncological Hx Blood Disorders: No - Integumentary Hx Dermatological Disorder: No - Musculoskeletal/Rheumatological Other/Comment: Fibromyalgia x 10 years, 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 as per pt was put on seroquel which caused hypotension, pt passed out on , and has right torn acl, right torn meniscus, and torn ligaments to right ankle, presently using cane meli wrap from r ft to above r knee - Gastrointestinal Hx Gastrointestinal Disorders: No - Genitourinary/Gynecological Hx Genitourinary Disorders: No - Psychiatric Hx Psychophysiologic Disorder: Yes Hx Anxiety: Yes Hx Depression: Yes Hx Substance Use: No - Surgical History Hx Section: Yes (07/13/2012) - Anesthesia Hx Anesthesia: Yes Hx Anesthesia Reactions: No <Aj Montoya - Last Filed: 09/04/17 14:06> Family/Social History - Physician Review Nursing Documentation Reviewed: Yes Family/Social History: No Known Family HX Smoking Status: Light Smoker < 10 Cigarettes Daily Hx Alcohol Use: No Hx Substance Use: No <Aj Montoya - Last Filed: 09/04/17 14:06> Allergies/Home Meds <Aj Montoya - Last Filed: 09/04/17 14:06> <Kike Gomez - Last Filed: 09/04/17 14:29> Allergies/Adverse Reactions: Allergies zolpidem tartrate [From Ambien] Allergy (Verified 04/06/17 11:34) SWELLING Review of Systems - Review of Systems Constitutional: absent: Fatigue, Fevers Eyes: absent: Vision Changes, Photophobia ENT: absent: Hearing Changes, Tinnitus Respiratory: absent: SOB, Cough Cardiovascular: absent: Chest Pain, Palpitations Gastrointestinal: Abdominal Pain, Nausea, Vomiting, Anorexia. absent: Stool Changes, Constipation, Diarrhea Genitourinary Female: absent: Dysuria, Frequency Musculoskeletal: absent: Arthralgias, Back Pain Skin: absent: Rash, Pruritis Neurological: absent: Headache, Dizziness Endocrine: absent: Diaphoresis, Polyuria Hemo/Lymphatic: absent: Adenopathy, Easy Bleeding Psychiatric: Anxiety, Depression <Aj Montoya - Last Filed: 09/04/17 14:06> Physical Exam Vital Signs Reviewed: Yes Mental Status: Positive for: Alert and Oriented X 3 - Systems Exam Head: Present: Atraumatic, Normocephalic Pupils: Present: PERRL Extroacular Muscles: Present: EOMI Mouth: Present: Moist Mucous Membranes Respiratory/Chest: Present: Clear to Auscultation. No: Respiratory Distress Cardiovascular: Present: Regular Rate and Rhythm, Normal S1, S2 Abdomen: Present: Tenderness (mild tenderness right and left lower quadrant ). No: Distention, Peritoneal Signs Upper Extremity: Present: Normal Inspection. No: Cyanosis, Edema Lower Extremity: Present: Normal Inspection. No: Edema Neurological: Present: CN II-XII Intact, Speech Normal Skin: Present: Warm, Dry Psychiatric: Present: Alert, Oriented x 3, Normal Insight, Normal Concentration <Aj Montoya - Last Filed: 09/04/17 14:06> Temperature: Afebrile Blood Pressure: Normal Pulse: Regular Respiratory Rate: Normal Appearance: Positive for: Well-Appearing, Non-Toxic, Comfortable Pain Distress: None Mental Status: Positive for: Alert and Oriented X 3 - Systems Exam Abdomen: Present: Tenderness, Normal Bowel Sounds. No: Distention, Peritoneal Signs, Rebound, Guarding Genitourinary/Pelvic Exam: Present: Normal External Genitalia, Vaginal Bleeding (mild), Adenexal Tenderness (right adnexal), Cervical os Closed. No: Vaginal Discharge, Vaginal Lesions, Adenexal Mass, Cervical Motion Tendernes, Odor <Kike Gomez - Last Filed: 09/04/17 14:29> Vital Signs Temp Pulse Resp BP Pulse Ox 09/04/17 10:40 72 18 128/88 100 09/04/17 08:02 97.8 F 76 17 121/77 100 Medical Decision Making <Aj Montoya - Last Filed: 09/04/17 14:06> <Kike Gomez - Last Filed: 09/04/17 14:29> ED Course and Treatment: 09/04/17 08:46 36 yo female presenting with abdominal pain -differential includes ovarian pathology/torsion vs. dysmenorrhea -ordering repeat CBC, CMP, lipase -urine drug screen -Urinalysis -will give toradol 30 IV -1 L bolus NS -4 mg IV zofran 09/04/17 10:35 (Aj Montoya) 09/04/17 11:40 Patient Seen With Resident: In agreement with resident note which contains more details about the patient. Patient was seen and evaluated with resident. Came up with plan and treatment together. The patient is a 36 year old female with lower abdominal pain. The patient's treatment plan includes labs, urine drug screen, Urinalysis, IV toradol, zofran, and 1 L bolus NS. Andrés felt better after Toradol, Morphine and Flexeril. She is tolerating PO fluids in the ED. Ultrasound showed cysts but otherwise unremarkable. She will follow up with OBGYN and the [facility]. She was advised to return to the ED if symptoms worsen or any concerns. TV Ultrasound Patient Name / ID : MICHELL BAUTISTA / [id number] IMPRESSIO: Unremarkable pelvic ultrasound. (Kike Gomez) - Lab Interpretations Lab Results: 09/04/17 08:30 Lab Results 09/04/17 08:30: WBC 4.6, RBC 4.19, Hgb 12.6, Hct 37.9, MCV 90.5, MCH 30.1, MCHC 33.2, RDW 13.2, Plt Count 231, MPV 11.3 H, Gran % 63.9, Lymph % (Auto) 27.0, Summers % (Auto) 7.4 H, Eos % (Auto) 1.5, Baso % (Auto) 0.2, Gran # 2.94, Lymph # 1.2, Summers # 0.3, Eos # 0.1, Baso # 0.01 09/04/17 08:24: Urine Color Yellow, Urine Appearance Sl cloudy, Urine pH 6.5, Ur Specific Laughlin <= 1.005, Urine Protein Negative, Urine Glucose (UA) Negative, Urine Ketones Negative, Urine Blood Large H, Urine Nitrate Negative, Urine Bilirubin Negative, Urine Urobilinogen 0.2, Ur Leukocyte Esterase Negative , Urine RBC 15 - 20, Urine WBC 0 - 2, Ur Epithelial Cells 4 - 5, Urine Bacteria Few, Urine HCG, Qual Negative - RAD Interpretation Radiology Orders: 09/04/17 09:23 TRANSVAGINAL [US] Routine - Medication Orders Current Medication Orders: Discontinued Medications Cyclobenzaprine HCl (Flexeril) 10 mg PO STAT STA Stop: 09/04/17 10:30 Last Admin: 09/04/17 10:40 Dose: 10 mg Sodium Chloride (Sodium Chloride 0.9%) 1,000 mls @ 999 mls/hr IV .Q1H1M STA Stop: 09/04/17 09:28 Last Admin: 09/04/17 08:45 Dose: 999 mls/hr eMAR Start Stop Document 09/04/17 08:45 RG (Rec: 09/04/17 09:16 RG [id number]) Intravenous Solution Start Date 09/04/17 Start Time 08:45 Ketorolac Tromethamine (Toradol) 30 mg IVP STAT STA Stop: 09/04/17 08:24 Last Admin: 09/04/17 08:45 Dose: 30 mg MAR Pain Assessment Document 09/04/17 08:45 RG (Rec: 09/04/17 09:23 RG [id number]) Pain Reassessment Is this a pain reassessment? Yes Sleep Is patient sleeping during reassessment? No Presence of Pain Presence of Pain Yes Pain Scale Used Pain Scale Used Numeric Location Left, Right or Bilateral Right Pain Location Body Site Abdomen Description Description Sharp IVP Administration Document 09/04/17 08:45 RG (Rec: 09/04/17 09:23 RG [id number]) Charges for Administration # of IVP Administrations 1 Re-Assess: [facility] Pain Assessment Document 09/04/17 09:45 RG (Rec: 09/04/17 09:46 RG [id number]) Pain Reassessment Is this a pain reassessment? Yes Sleep Is patient sleeping during reassessment? No Presence of Pain Presence of Pain Yes Pain Scale Used Pain Scale Used Numeric Location Left, Right or Bilateral Right Upper or Lower Lower Pain Location Body Site Abdomen Morphine Sulfate (Morphine) 4 mg IVP STAT STA Stop: 09/04/17 09:03 Last Admin: 09/04/17 09:22 Dose: 4 mg MAR Pain Assessment Document 09/04/17 09:22 RG (Rec: 09/04/17 09:22 RG [id number]) Pain Reassessment Is this a pain reassessment? Yes Sleep Is patient sleeping during reassessment? No Presence of Pain Presence of Pain Yes Pain Scale Used Pain Scale Used Numeric Description Pain Behavior Moaning Guarding Irritability Restlessness Aggravating Factors Changing Position Contant IVP Administration Document 09/04/17 09:22 RG (Rec: 09/04/17 09:22 RG [id number]) Charges for Administration # of IVP Administrations 2 Re-Assess: [facility] Pain Assessment Document 09/04/17 10:22 RG (Rec: 09/04/17 10:44 RG [id number]) Pain Reassessment Is this a pain reassessment? Yes Sleep Is patient sleeping during reassessment? No Presence of Pain Presence of Pain Yes Pain Scale Used Pain Scale Used Numeric Location Left, Right or Bilateral Right Upper or Lower Lower Pain Location Body Site Abdomen Description Description Sharp Intensity of Pain at present 4 Pain Behavior Moaning Guarding Aggravating Factors Contant Alleviating Factors/Management Medication Techniques Alleviating Factors Medication Ondansetron HCl (Zofran Inj) 4 mg IVP STAT STA Stop: 09/04/17 08:22 Last Admin: 09/04/17 08:45 Dose: 4 mg IVP Administration Document 09/04/17 08:45 RG (Rec: 09/04/17 09:17 RG [id number]) Charges for Administration # of IVP Administrations 1 <Aj Montoya - Last Filed: 09/04/17 14:06> - Scribe Statement The provider has reviewed the documentation as recorded by the Scribe <Kike Gomez - Last Filed: 09/04/17 14:29> - Scribe Statement Juju Marti Provider Scribe Attestation: All medical record entries made by the Scribe were at my direction and personally dictated by me. I have reviewed the chart and agree that the record accurately reflects my personal performance of the history, physical exam, medical decision making, and the department course for this patient. I have also personally directed, reviewed, and agree with the discharge instructions and disposition. (Kike Gomez) Disposition/Present on Arrival - Present on Arrival Any Indicators Present on Arrival: No History of DVT/PE: No History of Uncontrolled Diabetes: No Urinary Catheter: No History of Decub. Ulcer: No History Surgical Site Infection Following: None - Disposition Have Diagnosis and Disposition been Completed?: Yes Disposition Time: 12:00 Patient Plan: Discharge <Aj Montoya - Last Filed: 09/04/17 14:06> <Kike Gomez - Last Filed: 09/04/17 14:29> - Disposition Diagnosis: Abdominal pain, Ovarian cyst Disposition: HOME/ ROUTINE Condition: IMPROVED Discharge Instructions (ExitCare): Ovarian Cyst (ED), Acute Abdominal Pain (ED) Additional Instructions: Ms Espinosa, thank you for letting us take care of you today. Your provider was Dr. Gomez. You were treated for Abdominal Pain, Ovarian Cyst. The emergency medical care you received today was directed at your acute symptoms. If you were prescribed any medication, please fill it and take as directed. It may take several days for your symptoms to resolve. Return to the Emergency Department if your symptoms worsen, do not improve, or if you have any other problems. Please contact your doctor or call one of the physicians/clinics you have been referred to that are listed on the Patient Visit Information form that is included in your discharge packet. Bring any paperwork you were given at discharge with you along with any medications you are taking to your follow up visit. Our treatment cannot replace ongoing medical care by a primary care provider (PCP) outside of the emergency department. Thank you for allowing the [facility] team to be part of your care today. If you had an X-Ray or CT scan: A Radiologist will review the ED reading if any change in treatment is needed we will contact you. If you had a blood, urine, or wound culture: It will take several days for the results, if any change in treatment is needed we will contact you. If you had an STI test: It will take 48 hours for the results. Please call after 1 week if you have not heard back. Prescriptions: Ibuprofen [Motrin] 600 mg PO Q6 PRN #30 tab PRN Reason: Pain, Moderate (4-7) Ondansetron ODT [Zofran ODT] 4 mg PO Q6 #14 odt Referrals: [facility] at [facility] [Outside] - Follow up with primary Rivas Orozco MD [Staff Provider] - Follow up with primary Forms: [employer] (Indonesian), WORK NOTE
[2017-09-04 08:27] LABS: PH,URINE 6.5 (4.7-8.0); URINE BILIRUBIN NEGATIVE (NEGATIVE); URINE BLOOD LARGE (NEGATIVE); URINE GLUCOSE (UA) NEGATIVE (NEGATIVE); URINE KETONE NEGATIVE (NEGATIVE); URINE LEUKOCYTE ESTERASE NEGATIVE Leu/uL (NEGATIVE); URINE PROTEIN NEGATIVE mg/dL (<30 mg/dL); URINE UROBILINOGEN 0.2 E.U./dL (<1 E.U./dL)
[2017-09-04] MEDS ORDERED: Sodium Chloride 0.9% 1,000 ML IV STA (08:28)
[2017-09-04 08:30] LABS: URINE APPEARANCE SL CLOUDY (CLEAR); URINE COLOR YELLOW (YELLOW)
[2017-09-04] MEDS ORDERED: Sodium Chloride 0.9% 1,000 ML IV SCH (08:30)
[2017-09-04 08:47] LABS: URINE BACTERIA FEW (NEG); URINE RBC 15 - 20 /hpf (0-2); URINE WBC 0 - 2 /hpf (0-6)
[2017-09-04] MEDS ORDERED: Morphine 2 mg/ml ISec IVP STA (09:02)
[2017-09-04 10:05] LABS: BASO # 0.01 K/mm3 (0.0-2.0); BASO % 0.2 % (0.0-3.0); EOS # 0.1 (0.0-0.7); EOS % 1.5 % (1.5-5.0); GRAN # 2.94 (1.4-6.5); GRAN % 63.9 % (50.0-68.0); HEMATOCRIT 37.9 % (36.0-48.0); LYMPH # 1.2 (1.2-3.4); MEAN CELL VOLUME 90.5 fl (80.0-105.0); MEAN CORPUSCULAR HEMOGLOBIN 30.1 pg (25.0-35.0); MEAN CORPUSCULAR HGB CONC 33.2 g/dl (31.0-37.0); MEAN PLATELET VOLUME 11.3 fl (7.0-11.0); MONO # 0.3 (0.1-0.6); MONO % 7.4 % (1.0-6.0); RED CELL DISTRIBUTION WIDTH 13.2 % (11.5-14.5); WHITE BLOOD COUNT 4.6 10^3/ul (4.5-11.0)
[2017-09-04 10:41] VITALS: BP 128/88; PULSE 72; RESP 18
--- NOTE | 2017-09-04 12:45 | US ---
PROCEDURE: MAMMO DIAGNOSTIC BILAT INC CAD HISTORY: Screening, history of lung cancer TECHNIQUE: 2D digital diagnostic bilateral mammography was performed in standard CC and MLO projections. Examination was supplemented by 90 degree mediolateral and spot compression CC and MLO projections of the left breast. COMPARISON: None FINDINGS: MAMMOGRAM: The breast parenchyma is heterogeneously dense which limits the sensitivity of this exam. An apparent round focal asymmetry in the middle depth of the upper outer left breast dissipates on spot compression CC projection and is less conspicuous on spot compression MLO projection as well as 90 degree mediolateral projection. There are benign secretory calcifications in the upper outer right breast. There are no suspicious masses or microcalcifications. ULTRASOUND: High-resolution ultrasound of both entire breasts was performed with real-time linear scanner. Right breast: There is heterogeneous background echotexture. No suspicious solid or cystic masses. Left breast: There is heterogeneous background echotexture. At 1 o'clock position 4 cm from the nipple and corresponding to the focal asymmetry on mammogram, there is is 4 x 6 x 3 mm well-circumscribed ovoid hypoechoic nodule with some through transmission and smooth margins without central flow on color Doppler imaging. IMPRESSION: 1. No mammographic or sonographic evidence for breast malignancy. 2. 6 mm probably benign nodule, likely a complicated cyst at 1 o'clock position 4 cm from the nipple corresponding to the focal asymmetry on mammogram. As such, a diagnostic mammogram and ultrasound in six-month interval is recommended to assess stability of this probably benign finding. BIRADS 3 Probably Benign Recommendation: Short-interval 6-month follow-up The [facility] has passed a law, effective February 03, 2014. Please be advised that we are required by this law to put this notification in all mammography result reports. This [place] Breast Density Law requires all patients and healthcare providers, regardless of breast density, to receive the information typed below: Your mammogram may show dense breast tissue as determined by the Breast Imaging Reporting and Data System established by the [employer]. Dense breast tissue is very common and is not abnormal. However, in some cases, dense breast tissue can make it harder to find cancer on a mammogram and may also be associated with a risk factor for breast cancer. Discuss this and other risks for breast cancer that pertain to your personal medical history. A report of your results was sent to your health care provider. You may also find more information about breast density at the website of the [employer], www.acr.org.
== END 2017-09-04 10:25 | disposition home or self-care (01) ==
LOC: ED 07:51
DX: R10.9 Unspecified abdominal pain (principal); N83.209 Unspecified ovarian cyst, unspecified side
CPT/HCPCS: 76830; 81001; 84703; 85025; 96374; 96375; 99284; J1885; J2270; J2405; J7040

== ENCOUNTER 2017-10-21 10:58 | Emergency (ER) | payer MEDICAID ==
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
[2017-10-21 11:52] LABS: BASO # 0.01 K/mm3 (0.0-2.0); BASO % 0.2 % (0.0-3.0); EOS # 0.1 (0.0-0.7); EOS % 1.3 % (1.5-5.0); GRAN # 4.66 (1.4-6.5); GRAN % 73.6 % (50.0-68.0); HEMOGLOBIN 14.5 g/dL (12.0-16.0); LYMPH # 1.3 (1.2-3.4); LYMPH % 20.3 % (22.0-35.0); MEAN CELL VOLUME 88.9 fl (80.0-105.0); MEAN CORPUSCULAR HEMOGLOBIN 30.9 pg (25.0-35.0); MEAN CORPUSCULAR HGB CONC 34.7 g/dl (31.0-37.0); MEAN PLATELET VOLUME 10.3 fl (7.0-11.0); MONO # 0.3 (0.1-0.6); MONO % 4.6 % (1.0-6.0); PH,URINE 6.5 (4.7-8.0); RBC 4.7 10^6/uL (3.5-6.1); URINE BILIRUBIN NEGATIVE (NEGATIVE); URINE BLOOD TRACE-INTACT (NEGATIVE); URINE COLOR YELLOW (YELLOW); URINE GLUCOSE (UA) NEGATIVE (NEGATIVE); URINE LEUKOCYTE ESTERASE NEGATIVE Leu/uL (NEGATIVE); URINE NITRATE NEGATIVE (NEGATIVE); URINE PROTEIN NEGATIVE mg/dL (<30 mg/dL); URINE UROBILINOGEN 0.2 E.U./dL (<1 E.U./dL); WHITE BLOOD COUNT 6.3 10^3/ul (4.5-11.0)
[2017-10-21 11:53] LABS: URINE APPEARANCE CLEAR (CLEAR)
[2017-10-21] MEDS ORDERED: Morphine 4 mg/ml ISec IVP STA (11:55)
[2017-10-21 12:01] LABS: ALB/GLOB RATIO 1.3 (1.1-1.8); ALBUMIN 4.6 g/dL (3.0-4.8); ALT/SGPT 24 U/L (7-56); AST/SGOT 29 U/L (14-36); BLOOD UREA NITROGEN 9 mg/dL (7-21); CALCIUM 9.7 mg/dL (8.4-10.5); GFR AFRICAN-AMERICAN > 60; GFR NON-AFRICAN AMERICAN > 60
[2017-10-21 12:02] LABS: ACETAMINOPHEN < 10.0 ug/ml (10.0-20.0); SALICYLATE < 1 mg/dL (2.0-20.0)
[2017-10-21] MEDS ORDERED: Iohexol 350 MG/100 ML VIAL ONE (12:34)
[2017-10-21 12:57] LABS: INR 1.03 (0.93-1.08); PARTIAL THROMBOPLASTIN TIME 31.4 Seconds (25.1-36.5); PROTHROMBIN TIME 11.8 SECONDS (9.4-12.5)
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
[2017-10-21] MEDS ORDERED: Sodium Chloride 0.9% 1,000 ML IV STA (13:11)
--- NOTE | 2017-10-21 13:17 | RAD ---
HISTORY: pes eval COMPARISON: 04/22/2017 FINDINGS: LUNGS: No active pulmonary disease. PLEURA: No significant pleural effusion identified, no pneumothorax apparent. CARDIOVASCULAR: Normal. OSSEOUS STRUCTURES: No significant abnormalities. VISUALIZED UPPER ABDOMEN: Normal. OTHER FINDINGS: None. IMPRESSION: No active disease.
[2017-10-21 13:47] VITALS: RESP 18
--- NOTE | 2017-10-21 14:55 | CARD ---
APPROVED REPORT EKG Measurement Heart [id number] CT 126P [id number] <Conclusion> Normal sinus rhythm NSSTW changes Possible limb lead reversal.
[2017-10-21 14:57] LABS: BARBITURATES, UR NEGATIVE (NEGATIVE); BENZODIAZEPINES, UR NEGATIVE (NEGATIVE); PHENCYCLIDINE, UR NEGATIVE (NEGATIVE)
[2017-10-21 15:57] LABS: OPIATES, UR POSITIVE (NEGATIVE)
[2017-10-21 19:06] VITALS: TEMP 99.1
[2017-10-21 21:28] VITALS: BP 108/80; PULSE 99; O2SAT 98
== END 2017-10-21 21:26 | disposition short-term general hospital (02) ==
LOC: ED 10:58
DX: F41.0 Panic disorder [episodic paroxysmal anxiety] (principal); F32.9 Major depressive disorder, single episode, unspecified; R45.851 Suicidal ideations
CPT/HCPCS: 71045; 74177; 80053; 80320; 80324; 80329; 80345; 80346; 80349; 80353; 80358; 80361; 81001; 83992; 85025; 85610; 85730; 90791; 93005; 96361; 96372; 96374; 96375; 99285; J1885; J2060; J2270; J7040; Q9967

== ENCOUNTER 2018-08-24 07:39 | Emergency (ER) | payer MEDICAID ==
[2018-08-24 08:04] VITALS: O2SAT 100; BMI 27.3
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
[2018-08-24] MEDS ORDERED: Oxycodone/Acetaminophen 5/325 mg Tab PO STA (09:51)
--- NOTE | 2018-08-24 09:57 | RAD ---
PROCEDURE: Right Hip and pelvis radiographs. HISTORY: s/p fall COMPARISON: None. FINDINGS: BONES: Normal. No fracture. JOINTS: Normal. SOFT TISSUES: Normal. OTHER FINDINGS: None. IMPRESSION: Negative study
--- NOTE | 2018-08-24 09:58 | RAD ---
Date of service: 08/24/2018 PROCEDURE: Radiographs of the Lumbar Spine. HISTORY: s/p fall COMPARISON: No prior. FINDINGS: BONES: Normal alignment. No listhesis. No fracture. DISC SPACES: Unremarkable. OTHER FINDINGS: None. IMPRESSION: Unremarkable radiographs of the lumbar spine.
[2018-08-24] MEDS ORDERED: Methocarbamol 500 MG Tab PO SCH (10:00)
[2018-08-24 11:17] VITALS: BP 106/83; PULSE 78; RESP 16; TEMP 98
== END 2018-08-24 11:18 | disposition home or self-care (01) ==
LOC: ED 07:39
DX: S33.5XXA Sprain of ligaments of lumbar spine, initial encounter (principal); S30.0XXA Contusion of lower back and pelvis, initial encounter; W10.9XXA Fall (on) (from) unspecified stairs and steps, initial encounter; Y92.009 Unspecified place in unspecified non-institutional (private) residence as the place of occurrence of the external cause
CPT/HCPCS: 72100; 73502; 96372; 99283; J1885